=== PATIENT | female | born 1970 | race Caucasian/White ===

== ENCOUNTER 2024-02-22 23:47 | Inpatient (IN) | payer MEDICARE, OTHER, SELFPAY ==
[2024-02-22] VITALS (9 sets, daily range): BP systolic 82–93; BP diastolic 56–72; BMI 29.5
[2024-02-22 19:51] LABS: % Basophils 0.8 % (0-2); % Eosinophils 0.7 % (0-6); % Immature Granulocytes 1.8 % (0-0.5); % Lymphocytes 15.1 % (20.5-51.1); % Monocytes 5.9 % (1.7-9.3); % Neutrophils 75.7 % (42.2-75.2); Absolute Basophils 0.1 10^3/uL (0-0.2); Absolute Eosinophils 0.1 10^3/uL (0-0.7); Absolute Immature Granulocytes 0.3 10^3/uL (0-0.05); Absolute Lymphocytes 2.5 10^3/uL (1.2-3.4); Absolute Neutrophils 12.4 10^3/uL (1.4-6.5); Hematocrit 39.5 % (37.0-47.0); Hemoglobin 13.2 g/dL (12.0-16.0); Mean Corp Hgb Conc. 33.4 g/dL (33.0-37.0); Mean Corpuscular Hgb 27.9 pg (27.0-31.0); Mean Corpuscular Volume 83.5 fL (81.0-99.0); Mean Platelet Volume 10.6 fL (7.4-10.4); Nucleated Red Blood Cells % 0.1 %; Platelet Count 166 10^3/uL (130-400); Red Blood Cell Count 4.73 10^6/uL (4.20-5.40); Red Cell Dist. Width 14.3 % (11.5-14.5); White Blood Cell Count 16.3 10^3/uL (4.8-10.8)
[2024-02-22 19:57] LABS: Lactic Acid 0.7 mmol/L (0.7-2.0)
[2024-02-22 20:03] LABS: Blood Urea Nitrogen 13 mg/dl (7-17); Calcium 8.1 mg/dl (8.4-10.2); Carbon Dioxide 24 mmol/L (22-30); Chloride 95 mmol/L (98-107); Estimated Creatinine Clearance 107 ml/min; Glucose 92 mg/dl (70-99); Sodium 126 mmol/L (135-145); eGFR > 60.00
[2024-02-22 20:30] LABS: Urine Albumin Trace (Neg - Trace); Urine Bilirubin 1+ (Negative); Urine Character Clear (Clear); Urine Color Amber; Urine Glucose Negative (Negative); Urine Ketone Negative (Negative); Urine Leukocyte Trace (Negative); Urine Nitrite Positive (Negative); Urine Occult Blood Negative (Negative); Urine Specific Gravity 1.015 (<1.030); Urine Urobilinogen Negative (Neg - 1+)
[2024-02-22 20:34] LABS: Osmolality Urine 513 mOsm/kg (300-900)
[2024-02-22] MEDS: NSS 500 IV ×3 (20:34→22:35)
[2024-02-22 20:40] LABS: Urine Bacteria Few (Negative)
[2024-02-22 20:45] LABS: Urine Sodium < 5 mmol/L (30-90)
[2024-02-22 20:46] LABS: Osmolality Serum 266 mOsm/kg (275-300)
[2024-02-22 20:48] LABS: Potassium 3.5 mmol/L (3.5-5.1)
--- NOTE | 2024-02-22 22:14 | ED.GENMED ---
History of Present Illness
General
Chief Complaint: Abnormal Lab Value
Source: patient
Exam Limitations: dementia
Time Seen by Provider: 02/22/24 19:31
Nursing documentation reviewed up to this point in time: agreed with
Travel History
Have you had any contact with someone who has COVID-19?: No
Do you have any symptoms of coronavirus? Fever > 100 degrees, chills, cough, shortness of breath, sore throat, loss of taste or smell, muscle aches, or headache?: No
History of Present Illness
History of Present Illness:
Patient with history of early dementia and schizophrenia, presents to ED from [facility] with concern for sepsis, as she has had significant decreased oral intake recently along with multiple blood work which revealed leukocytosis. Upon arrival,
patient is afebrile, and offers no complaints. Denies headache. Denies chest pain. Denies abdominal pain. Denies nausea, vomiting, or diarrhea.
Review of Systems
Review of Systems
Allergies reviewed?: Yes
Unable to obtain full review of systems at this time due to: dementia
Phy Exam
Physical Exam
Physical Exam:
Physical Exam
General: no apparent distress, not acutely ill. afebrile. dry oral mucosa
Head: nc/at. eomi
Neck: supple. no meningeal signs.
Heart: s1/s2 regular rate and rhythm, no murmur. equal radial pulses.
Lungs: no acute respiratory distress. clear bilaterally
Abdomen: normal bowel sounds. not tender.
Neuro: alert and oriented x 1. no focal neurological deficits
Skin: no rash
Psychiatric: well kept. interactive and cooperative
Extremities: no edema. no calf tenderness.
Course
Orders/Labs/Results
Orders:
Orders
02/22/24 19:33
Electrocardiogram (*1) Urgent
Reason for Study: Other
Other Reason for Exam: Possible Sepsis
Cardiac Monitoring- Treatment ONCE
EKG- Treatment ONCE
IV Insert/Care/Rem.- Treatment PRN
O2 Therapy [RESP] Urgent
Titrate/Wean O2 to maintain O2 sat greater than (%): 93
Special Instructions: TO MAINTAIN CONTINUOUS O2 SATS > OR = 93%
Pulse Ox/cont/shift [RESP] Urgent
Quantity: 1
Special Instructions: CONTINUOUS
02/22/24 19:36
Basic Metabolic Panel Urgent
Complete Blood Count/With Diff Urgent
Lactic Acid Q4H
Comment: ON ICE, CANCEL 2ND ORDER IF FIRST LACTIC ACID LEVEL <2
Blood Culture Q30M
BROOKS Source: Blood/Venous
Specimen Description:
Comment: FROM 2 SEPARATE SITES
02/22/24 19:45
Blood Culture Q30M
BROOKS Source: Blood/Venous
Specimen Description:
Comment: FROM 2 SEPARATE SITES
02/22/24 20:07
Add On- LAB Urgent
Tests Added?: urine osm, urine sodium, serum osm
02/22/24 20:14
Straight cath- Treatment ONCE
02/22/24 20:23
Potassium Urgent
Serum Osmolality Urgent
Comment: ADD ON
Urinalysis Reflex To Culture Urgent
Date Specimen was Collected: 02/22/24
Time Specimen was Collected: 20:20
Urine Microscopic Reflex Cult Urgent
Urine Culture Urgent
BROOKS Source: U
Specimen Description:
Date Specimen was Collected: 02/22/24
Time Specimen was Collected: 20:20
02/22/24 20:29
Osmolality, Random Urine Urgent
Date Specimen was Collected: 02/22/24
Time Specimen was Collected: 20:20
Comment: ADD ON
Urine Sodium Urgent
Date Specimen was Collected: 02/22/24
Time Specimen was Collected: 20:20
Comment: ADD ON
02/22/24 20:33
0.9% Sodium Chloride 500 ml [Nss] 500 ml IV BOLUS
02/22/24 21:24
0.9% Sodium Chloride 500 ml [Nss] 500 ml IV BOLUS
02/22/24 22:19
CefTRIAXone [Rocephin] 1,000 mg IV NOW STA
02/22/24 22:20
0.9% Sodium Chloride 500 ml [Nss] 500 ml IV BOLUS
02/22/24 22:33
Sterile Water [Sterile Water For Injection] 10 ml .ROUTE .[facility]
02/22/24 23:47
Wound Culture [Wound/Abscess/Other Culture] Urgent
BROOKS Source: Skin Surface
Specimen Description:
Date Specimen was Collected: 02/22/24
Time Specimen was Collected: 23:45
Comment: vaginal wall
Abnormal Lab Results
02/22/24 02/22/24 02/22/24
19:36 20:23 20:29
WBC 16.3 H 10^3/uL
(4.8-10.8)
MPV 10.6 H fL
(7.4-10.4)
Abs Immat Gran (auto) 0.3 H 10^3/uL
(0-0.05)
Absolute Neuts (auto) 12.4 H 10^3/uL
(1.4-6.5)
Absolute Monos (auto) 1.0 H 10^3/uL
(0.1-0.6)
Immature Gran % 1.8 H %
(0-0.5)
Neutrophils % 75.7 H %
(42.2-75.2)
Lymphocytes % 15.1 L %
(20.5-51.1)
Sodium 126 L mmol/L
(135-145)
Chloride 95 L mmol/L
(98-107)
Creatinine 0.4 L mg/dL
(0.6-1.0)
Serum Osmolality 266 L mOsm/kg
(275-300)
Calcium 8.1 L mg/dl
(8.4-10.2)
Urine Nitrite (Reflex) Positive A
(Negative)
Urine Bilirubin 1+ A
(Negative)
Leukocyte Esterase Rfl Trace A
(Negative)
Urine Bacteria (Reflex) Few A
(Negative)
Urine Sodium < 5 L mmol/L
(30-90)
02/22/24 19:36
02/22/24 20:23
Vital Signs
Initial and Last Documented VS:
Initial Vital Signs
Pulse Resp
107 15
02/22/24 19:07 02/22/24 19:07
Last Documented Vital Signs
Temp Pulse Resp BP Pulse Ox
99.1 F 111 17 85/63 96
02/24/24 08:46 02/24/24 06:15 02/24/24 06:15 02/24/24 06:00 02/23/24 21:30
MDM/Problems Addressed
MDM/Problems Addressed:
Blood work reviewed, noted for hyponatremia, likely prerenal from lack of oral intake. UA noted. In light of patient's history of UTI, will administer Rocephin.
Urine cx and blood cx pending.
Pt given multiple boluses of IVF due to hypotension, with improvement.
*Critical Care Note
Total Time (30-74mins, 75-104mins- exclusive of procedures): 30 min
ED Attending Note
-
Portions of this chart may have been created with voice recognition software.� Occasional wrong word or��sound alike� substitutions may have occurred due to the inherent limitations of voice recognition software.
Discharge Plan
Departure
Patient Disposition: Admit
Date of Disposition: 02/22/24
Time of Disposition: 22:20
Presentation/result/management discussed w/ accepting MD/DO: Hospitalist
Discharge Problem:
UTI (urinary tract infection), Acute hyponatremia
Interventions
Interventions:
*Risk Screen - Suicide Last Done: 02/22/24 19:09
*General Assessment Last Done: 02/22/24 19:09
*Neglect/Abuse Screening Last Done: 02/22/24 19:09
ED- Fall Risk Assessment Last Done: 02/22/24 19:09
*ED COVID-19 Vaccine History Last Done: 02/22/24 19:09
*Nursing Disposition Last Done: 02/23/24 01:50
Discharge Date and Time
Discharge Date/Time: 02/23/24 01:50
[2024-02-22] MEDS: ROCEPHIN 1000 MG IV (22:36)
--- NOTE | 2024-02-22 22:47 | HPS.HSE ---
Family Physician
-
Family Physician: Cliff Austin, DO
Chief Complaint
-
Change of mental status
History of Present Illness
53 woman with a history of early dementia and schizophrenia, comes to the ED from [facility] with concern for sepsis. She has had significant decreased oral intake with blood work with leukocytosis. In the ED, patient is afebrile, and offers no
complaints. She denies headache, chest pain, abdominal pain, nausea, vomiting, or diarrhea. At the time of my exam, she was sleeping and woke to the exam and went back to sleep.
Medical History
Past Medical History
Past Medical History: Reports Other
Additional Past Medical History:
Dementia
Schizophrenia
high cholesterol
GERD
Essential HTN
Past Surgical History: Reports None
Social History
Unable to obtain full social history at this time due to: Dementia
Family History
Family History: Not pertinent
Allergies / Home Medications
Allergies reflects when Allergies were last updated in [employer].
Home Medications with original date entered in [employer]
Allergy/Medication List:
Allergies
Allergy/AdvReac Type Severity Reaction Status Date / Time
diphenhydramine Allergy Unknown Unknown Verified 02/22/24 19:08
lithium Allergy Unknown Unknown Verified 02/22/24 19:08
Home Medications
acetaminophen 325 mg tablet 650 mg PO Q6H PRN elevated temp/mild pain 02/22/24
anastrozole 1 mg tablet 1 mg PO DAILY 02/22/24
aripiprazole 10 mg tablet (Abilify) 10 mg PO DAILY 02/22/24
atorvastatin 40 mg tablet (Lipitor) 40 mg PO HS 02/22/24
benztropine 2 mg tablet 2 mg PO BID 02/22/24
bisacodyl 10 mg rectal suppository 10 mg AK DAILY PRN constipation 02/22/24
calcium 500 mg tablet 1,500 mg PO DAILY 02/22/24
cefpodoxime 200 mg tablet 200 mg PO BID 02/22/24
cholecalciferol (vitamin D3) 25 mcg (1,000 unit) tablet 25 mcg PO DAILY 02/22/24
clonazepam 1 mg tablet (Klonopin) 1 mg PO Q8 PRN anxiety 02/22/24
clozapine 200 mg tablet (Clozaril) 200 mg PO DAILY 02/22/24
clozapine 200 mg tablet (Clozaril) 400 mg PO HS 02/22/24
divalproex 500 mg tablet,delayed release 1,000 mg PO HS 02/22/24
docusate sodium 100 mg capsule (Colace) 100 mg PO DAILY 02/22/24
ferrous gluconate 325 mg (36 mg iron) tablet 324 mg PO TID 02/22/24
gabapentin 100 mg tablet 100 mg PO TID 02/22/24
haloperidol 10 mg tablet 10 mg PO DAILY 02/22/24
levothyroxine 200 mcg capsule 225 mcg PO DAILY 02/22/24
magnesium hydroxide 400 mg/5 mL oral suspension (Milk of Magnesia) 30 ml PO DAILY PRN constipation 02/22/24
magnesium oxide 400 mg (241.3 mg magnesium) tablet (MagOx) 400 mg PO BID 02/22/24
menthol 4 % topical gel (Biofreeze (menthol)) 1 applic topical TID PRN pain 02/22/24
naloxone 4 mg/actuation nasal spray (Narcan) 4 mg intranasal Q2M PRN overdose 02/22/24
ondansetron HCl 4 mg tablet 4 mg PO Q6H PRN nausea 02/22/24
pantoprazole 20 mg tablet,delayed release (Protonix) 20 mg PO DAILY 02/22/24
potassium 20 mg chewable tablet 20 mg PO DAILY 02/22/24
pramipexole 0.25 mg tablet 0.25 mg PO HS 02/22/24
propranolol 10 mg tablet 10 mg PO BID 02/22/24
psyllium seed (sugar) oral packet 1 packet PO DAILY 02/22/24
sennosides 8.6 mg tablet (senna) 8.6 mg PO BID PRN coinstipation 02/22/24
sertraline 100 mg tablet 100 mg PO DAILY 02/22/24
sodium phosphates 19 gram-7 gram/118 mL enema (Fleet Enema) 118 ml AK ONCE PRN constipation 02/22/24
Review of Systems
-
Unable to obtain full review of systems at this time due to: Dementia
Physical Exam
Vital Signs
Vital Signs
Temp Pulse Resp BP Pulse Ox
98.4 F 107 16 86/68 96
02/22/24 19:09 02/22/24 19:34 02/22/24 19:34 02/22/24 19:34 02/22/24 19:34
Physical Exam
General: Well Developed, Well Nourished, No Apparent Distress, Comfortable and Appears Chronically Ill
HEENT: [place] Conjunctivae, Nose Appears Normal and Ears Appear Normal
Respiratory: Clear
Cardiac: S1/S2 and Regular Rhythm
GI: Soft, Non Tender and Non Distended
Musculoskeletal: No Clubbing, No Cyanosis and No Edema
Skin: Warm and Dry
Neuro: Awake
Psych: Calm
Laboratory Results
-
02/22/24 19:36
02/22/24 20:23
Laboratory Results
Lactic Acid 0.7 mmol/L (0.7-2.0) 02/22/24 19:36
Total Bilirubin Cancelled 02/22/24 19:36
AST Cancelled 02/22/24 19:36
ALT Cancelled 02/22/24 19:36
Alkaline Phosphatase Cancelled 02/22/24 19:36
Data Reviewed
-
Lab Data: Labs Reviewed by me
Impression/Plan
-
IMPRESSION:
53 woman with UTI, hyponatremia and change of mental status
PLAN:
1. UTI - likely caused change of mental status and hyponatremia from decreased PO
ABX for UTI
IV saline
Re-eval in am
Code: Full
VCD for DVTp
[2024-02-23] VITALS (29 sets, daily range): BP systolic 78–103; BP diastolic 53–81; BMI 28.7
[2024-02-23] MEDS: NSS 1000 IV ×3 (00:44→21:43)
--- NOTE | 2024-02-23 00:56 | W.PN.UPDATE ---
Update Note
Progress Note Update
Before sending pt to assigned med surg bed, ED nurse reporting continued low BPs 80s-90s/50s-60s despite multiple nss boluses. While MAP has remained >65 bp has never been above 90.
Given sepsis and hypotension and possible need for pressor support, will upgrade to IMU overnight and monitor BP closely.
--- NOTE | 2024-02-23 02:29 | PTCARENOTE ---
Received patient from ED at approximately 2:05am. Pt. sent to ICU as IMU overflow for suspected UTI sepsis with low blood pressures (80s/60s) in ED. Given 1500ml of NSS boluses in total before starting maintenance fluids. Arrived to ICU awake,
alert, and oriented. Calm demeanor. Denies pain/discomfort. Afebrile. Heart rhythm sinus. Blood pressure normotensive 101/56 with MAP of 79. Currently on room air. Lungs sound diminished. Regular diet ordered, pt. taking sips of water without issue.
In ED foul smelling vaginal discharge noted. Area cultured. Skin is intact. Discussed plan of care with patient. Vital signs stable at this time.
[2024-02-23 04:03] LABS: Hematocrit 35.6 % (37.0-47.0); Hemoglobin 12.4 g/dL (12.0-16.0); Mean Corp Hgb Conc. 34.8 g/dL (33.0-37.0); Mean Corpuscular Hgb 28.5 pg (27.0-31.0); Mean Corpuscular Volume 81.8 fL (81.0-99.0); Mean Platelet Volume 9.8 fL (7.4-10.4); Platelet Count 149 10^3/uL (130-400); Red Blood Cell Count 4.35 10^6/uL (4.20-5.40); Red Cell Dist. Width 14.6 % (11.5-14.5); White Blood Cell Count 15.5 10^3/uL (4.8-10.8)
[2024-02-23 04:29] LABS: Blood Urea Nitrogen 12 mg/dl (7-17); Calcium 7.8 mg/dl (8.4-10.2); Carbon Dioxide 21 mmol/L (22-30); Chloride 100 mmol/L (98-107); Estimated Creatinine Clearance 102 ml/min; Glucose 94 mg/dl (70-99); Potassium 3.2 mmol/L (3.5-5.1); Sodium 129 mmol/L (135-145); eGFR > 60.00
[2024-02-23] MEDS: SYNTHROID 225 MCG PO (06:20)
[2024-02-23] MEDS: CLOZARIL 200 MG PO (08:58)
[2024-02-23] MEDS: HALDOL 10 MG PO (08:58)
[2024-02-23] MEDS: OSCAL CAL 500 1500 MG PO (09:02)
[2024-02-23] MEDS: COLACE 100 MG PO (09:02)
[2024-02-23] MEDS: ZOLOFT 100 MG PO (09:02)
[2024-02-23] MEDS: PROTONIX 20 MG PO (09:03)
[2024-02-23] MEDS: MAGNESIUM OXIDE 500 MG PO ×2 (09:03→21:43)
[2024-02-23] MEDS: KCL 20 MEQ PO (09:03)
[2024-02-23] MEDS: VITAMIN D3 (cholecalciferol) 25 MCG PO (09:03)
[2024-02-23] MEDS: NEURONTIN 100 MG PO ×3 (09:03→21:46)
[2024-02-23] MEDS: ABILIFY 10 MG PO (09:04)
[2024-02-23] MEDS: ARIMIDEX 1 MG PO (09:04)
[2024-02-23] MEDS: COGENTIN 2 MG PO ×2 (09:04→21:42)
[2024-02-23] MEDS: METAMUCIL, KONSYL 1 PACKET PO (09:04)
[2024-02-23] MEDS: FEOSOL 325 MG PO (09:08)
--- NOTE | 2024-02-23 10:25 | W.PN.HOSP.TC ---
Today's Communication/Plan
-
Continue ceftriaxone
Follow culture data
Continued IV fluids-discontinue when she is taking adequate p.o.'s.
Assessment / Plan
Assessment / Plan
53 woman with early dementia and subsequently was referred from [facility] [place] [facility] for concern of sepsis. She apparently was having decreased oral intake and lab workup was abnormal so sent her here.
Clinical sepsis-patient with a concern of infection, leukocytosis and tachycardia with hypotension.
Initial eval shows pyuria raising concern for UTI. On ceftriaxone. Improving leukocytosis.
Abdomen benign
Voices no respiratory symptoms. COVID-negative. Check a chest x-ray.
Follow clinical response to abx and cx data
Hypertension suspect secondary to sepsis with no septic shock. Responded to IV fluids. Not requiring pressors. Continue to monitor.
Hyponatremia-suspect hypovolemia related. Urine sodium less than 5 and she was hypotensive. She has responded to IV fluids with increasing sodium to 129. I will continue with IV fluids and follow sodium.
History of early dementia/dysphagia-patient without agitation. Continue with her home regimen.
Code: Full
Tx to Med surg if BP remains stable today
Anticipated Discharge: > 48 hours
Subjective/Interval History
-
Date of Service: February 23, 2024
Patient is alert and oriented to self, place. She did not know which the month of the year.
She did not know why she is in the hospital.
She says she is originally from [place] and she has been in this facility for some time.
She didnt know which hospital she was prior landing in the current facility.
Says 'i am ok'
Voicing no specific complaints
No events overnight per RN
Objective Data
-
Labs:
Laboratory Results
02/23/24
03:42
WBC 15.5 H
Hgb 12.4
Hct 35.6 L
Plt Count 149
Sodium 129 L
Potassium 3.2 L
Chloride 100
Carbon Dioxide 21 L
BUN 12
Creatinine 0.4 L
Glucose 94
Calcium 7.8 L
Vital Signs:
Vital Signs
Temp Pulse Resp BP Pulse Ox
98.3 F 96 20 96/61 99
02/23/24 07:19 02/23/24 09:04 02/23/24 06:30 02/23/24 09:04 02/23/24 06:30
I&O
02/22/24 02/23/24 02/24/24
06:59 06:59 06:59
Intake Total 2199
Balance 2199
Review of Systems
-
Constitutional: Denies Fever
Respiratory: Denies Trouble Breathing
Cardiac: Denies Chest Pain
Abdomen/GI: Denies Abdominal Pain, Nausea, Vomiting or Diarrhea
Genitourinary: Denies Dysuria
Musculoskeletal: Denies Joint Pain
Neuro: Denies Dizzy
Physical Exam
-
General: No Apparent Distress
HEENT: Moist Mucous Membranes
Respiratory: Clear to Auscultation (Anteriorly)
Cardiac: Regular Rhythm and S1/S2; Negative Tachycardic
GI: Soft, Nontender, Nondistended and Normal Bowel Sounds
Musculoskeletal: No Edema
Neuro: Awake, Alert and Oriented; Negative No Motor Deficits, Slurred Speech or Facial Droop
Psych: Calm and Confused; Negative Agitated
Data Reviewed
-
Labs: Labs Reviewed by me
--- NOTE | 2024-02-23 12:52 | PTCARENOTE ---
pt awake and alert this am , confused on time and place, anxious at times , pt NSR on monitor , BP 96/61, poor appetite , oob to chair for 4 hours , needs max 2 assist, incontinent of urine , hinojosa and foul smelling vaginal drainage
--- NOTE | 2024-02-23 13:33 | CM ---
Reviewed the chart notes and spoke with the patient at the bedside. Patient is a poor historian. The patient has been at [facility] since 12/26/2023. Call placed to [facility] to confirm half-way resident, but was transferred to a
phone that had mailbox. Patient at baseline is wheelchair bound, but was able to stand and pivot for nursing. CM continues to be available to patient/family and is monitoring medical plan for needs at discharge.
Plan: Discharge back to [facility] when medically stable.
--- NOTE | 2024-02-23 17:05 | PTCARENOTE ---
no change in assessments , oob in chair for several hours today , needs lots of encouragement pt becomes very anxious , pt continues to have poor appetite
[2024-02-23] MEDS: DEPAKOTE (12 HR RELEASE) 1000 MG PO (21:44)
[2024-02-23] MEDS: CLOZARIL 400 MG PO (21:44)
[2024-02-23] MEDS: LIPITOR 40 MG PO (21:45)
[2024-02-23] MEDS: MIRAPEX 0.25 MG PO (21:45)
[2024-02-23] MEDS: STERILE WATER FOR INJECTION 10 ML IV (21:46)
[2024-02-23] MEDS: ROCEPHIN 1000 MG IV (21:46)
[2024-02-24] VITALS (25 sets, daily range): BP systolic 79–103; BP diastolic 53–75; BMI 30.7
[2024-02-24] MEDS: SYNTHROID 225 MCG PO (06:25)
[2024-02-24] MEDS: NSS 1000 IV ×2 (06:25→17:33)
[2024-02-24] MEDS: ABILIFY PO (08:51)
[2024-02-24] MEDS: ARIMIDEX PO (08:51)
[2024-02-24] MEDS: CLOZARIL PO (08:52)
[2024-02-24] MEDS: METAMUCIL, KONSYL PO (08:52)
[2024-02-24] MEDS: KCL PO (08:52)
[2024-02-24] MEDS: FEOSOL PO (08:52)
[2024-02-24] MEDS: COGENTIN PO (08:52)
[2024-02-24] MEDS: HALDOL PO (08:52)
[2024-02-24] MEDS: VITAMIN D3 (cholecalciferol) PO (08:52)
[2024-02-24] MEDS: COLACE PO (08:52)
[2024-02-24] MEDS: NEURONTIN PO ×2 (08:52→16:02)
[2024-02-24] MEDS: MAGNESIUM OXIDE PO (08:52)
[2024-02-24] MEDS: PROTONIX PO (08:52)
[2024-02-24] MEDS: OSCAL CAL 500 PO (08:52)
[2024-02-24] MEDS: ZOLOFT PO (08:53)
[2024-02-24 09:04] LABS: Hematocrit 30.1 % (37.0-47.0); Hemoglobin 10.4 g/dL (12.0-16.0); Mean Corp Hgb Conc. 34.6 g/dL (33.0-37.0); Mean Corpuscular Hgb 28.4 pg (27.0-31.0); Mean Corpuscular Volume 82.2 fL (81.0-99.0); Mean Platelet Volume 9.7 fL (7.4-10.4); Platelet Count 150 10^3/uL (130-400); Red Blood Cell Count 3.66 10^6/uL (4.20-5.40); Red Cell Dist. Width 14.6 % (11.5-14.5); White Blood Cell Count 23.2 10^3/uL (4.8-10.8)
[2024-02-24 09:42] LABS: Blood Urea Nitrogen 5 mg/dl (7-17); Calcium 7.7 mg/dl (8.4-10.2); Carbon Dioxide 22 mmol/L (22-30); Chloride 104 mmol/L (98-107); Estimated Creatinine Clearance 105 ml/min; Glucose 83 mg/dl (70-99); Potassium 3.1 mmol/L (3.5-5.1); Sodium 129 mmol/L (135-145); eGFR > 60.00
[2024-02-24 10:10] LABS: Cortisol, Random 15.3 ug/dl
--- NOTE | 2024-02-24 10:14 | W.PN.HOSP.TC ---
Addendum entered and electronically signed by Bg Delaney MD 02/27/24 17:04:
hypokalemia -replete
Original Note:
Today's Communication/Plan
-
Obtain a CT of the abdomen pelvis. Changed to IV Zosyn.
Obtain a chest x-ray.
IV Fluid bolus.
Check cortisol and TSH.
Consult psychiatric
Assessment / Plan
Assessment / Plan
53 woman with early dementia and [facility]. She apparently was having decreased oral intake and lab workup was abnormal so sent her here.
Clinical sepsis-patient with a concern of infection, leukocytosis and tachycardia with hypotension.
Initial eval shows pyuria raising concern for UTI. On ceftriaxone.
To the abdomen seems very tender and also white count is getting elevated. There is also concern if there is any vaginal discharge. Obtain a CT of the abdomen pelvis. Switch to Zosyn. Follow culture data.
Voices no respiratory symptoms. COVID-negative. Check a chest x-ray.
Hypotension suspect secondary to sepsis with no septic shock. Responded to IV fluids. Remains on the lower side again but asymptomatic. MAP is mostly more than 65. Will give more fluid boluses and see response. Creatinine is okay. Check serum
cortisol.
Hyponatremia-suspect hypovolemia related. Urine sodium less than 5 and she was hypotensive. She has responded to IV fluids with increasing sodium to 129. I will continue with IV fluids and follow sodium.
History of early dementia/dysphagia-patient without agitation. Continue with her home regimen. Patient refusing oral medication. Consult psychiatry.
Code: Full
Discussed with CITY COUNCILMAN
Total time spent on today's encounter was 52 minutes which included time spent in counseling the patient/ regarding diagnosis and treatment plan as listed above, goals of care, and symptom management. Case was discussed with nursing staff,
specialists, All labs and imaging personally reviewed by me. Remainder the time spent in detailed review of previous records, lab data, imaging, and other medical provider documentation.
Anticipated Discharge: > 48 hours
Subjective/Interval History
-
Date of Service: February 24, 2024
patient is alert and oriented to self and person but not to the place.
RN states she is refusing his medication especially the psychiatric medication saying that she is not supposed to be on them.
She does not know why psychiatrist was prescribing and also she cant tell me which hospital she was admitted prior to coming into the local rehab facility .
Denies any shortness of breath or cough. No fever or chills.
Complains of abdominal discomfort.
RN states when she was changing there was a concern about vaginal discharge may be. Patient denies any vaginal issues. 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
She denies any vaginal itching or prior bleeding.
Objective Data
-
Labs:
Laboratory Results
02/24/24
08:45
WBC 23.2 H
Hgb 10.4 L
Hct 30.1 L
Plt Count 150
Sodium 129 L
Potassium 3.1 L
Chloride 104
Carbon Dioxide 22
BUN 5 L
Creatinine 0.4 L
Glucose 83
Calcium 7.7 L
Vital Signs:
Vital Signs
Temp Pulse Resp BP Pulse Ox
99.1 F 111 17 85/63 96
02/24/24 08:46 02/24/24 06:15 02/24/24 06:15 02/24/24 06:00 02/23/24 21:30
I&O
02/23/24 02/24/24 02/25/24
06:59 06:59 06:59
Intake Total 2200 / 2300 2800 / 2800
Balance 2200 / 2300 2800 / 2800
Review of Systems
-
Constitutional: Denies Fever
Respiratory: Denies Trouble Breathing
Cardiac: Denies Chest Pain
Abdomen/GI: Denies Abdominal Pain, Nausea, Vomiting or Diarrhea
Neuro: Denies Dizzy
Physical Exam
-
General: No Apparent Distress
HEENT: Moist Mucous Membranes
Respiratory: Clear to Auscultation (anteriorly)
Cardiac: Regular Rhythm and S1/S2
GI: Soft, Nondistended, Normal Bowel Sounds and Tender (naila in LLQ and Suprapubic area. When I press the suprapubic area she feels like urinating. No rebound or guarding.)
Neuro: Awake, Alert, Oriented and No Motor Deficits; Negative Tremors
Psych: Calm and Confused (seems confused about details of admission); Negative Agitated
Data Reviewed
-
Labs: Labs Reviewed by me
[2024-02-24] MEDS: NSS 250 IV (10:18)
--- NOTE | 2024-02-24 10:21 | PTCARENOTE ---
Received pt @ change of shift. Assessment per charting- see flow sheet. Pt. refused AM meds, Dr. Delaney to bedside aware. Pt w foul/stool smelling vaginal discharge. Pt. reporting abd pain, tender to palpation. SBP's 80's w MAP 65. Dr. Delaney
aware of above findings as well and further orders received. Complete sarah given. Reposition per protocol. Instructed on how to report care concerns and call garzon in reach.
[2024-02-24] MEDS: ZOSYN 50 IV ×2 (11:14→17:33)
[2024-02-24] MEDS: KCL 270 MEQ IV (11:15)
[2024-02-24 11:39] LABS: TSH 0.04 uIU/ml (0.47-4.68)
[2024-02-24] MEDS: OMNIPAQUE 50 ML PO (11:42)
--- NOTE | 2024-02-24 11:50 | PTCARENOTE ---
Pt. w ABD/PELV CT orders w IV/oral contrast. Attempted to start first cup of contrast @ 1142. Pt. took 2 sips and is now refusing the rest. VAT to bedside in attempt for 2nd IV site. Dr. Delaney and CT scan made aware of above findings.
--- NOTE | 2024-02-24 13:52 | PTCARENOTE ---
Addendum entered by Valery Maier RN 02/24/24 15:42:
Pt. back to unit approx 1445, no events during transport/testing. Max assisted back from stretcher to bed. Hygiene care provided and pt. repositioned per protocol. Bed alarm active. Safe environment maintained.
Original Note:
Sent pt. to CT scan via stretcher on cardiac cath lab technologist. Awaiting arrival back to unit.
--- NOTE | 2024-02-24 14:17 | PN.CDI ---
CDI
- -
CDI:
Physician Documentation Request
Admit Date: 02/22/24 23:47
Dear Doctor Rhett,
Patient admitted for sepsis.
02/22 Potassium level: 3.2
02/22 Potassium chloride 20 meq PO administered
02/23 Potassium level: 3.1
02/23 Potassium chloride 40 meq IV administered
Based on the above, could you clarify in the progress notes, the appropriate diagnosis, if significant, that supports the above abnormalities and additional evaluation, monitoring and/or treatment rendered:
Hypokalemia
Abnormal lab value insignificant
Other
Use of terms such as suspected, likely, concern for, or probable (associated with a specific diagnosis that is being evaluated, monitored, or treated as if it exists) are acceptable and can be coded in the inpatient setting, when documented at the
time of discharge.
Thank you,
Helen Quinn RN, BSN
CDI Specialist
Available via [place] text
Please use your independent medical judgment in providing your response.
--- NOTE | 2024-02-24 14:21 | CS.PSYCHR ---
Consult Summary - Psychiatry
-
Pt is 53 yo female with a history of early dementia and schizophrenia, brought to the ED from sn[facility] with concern for sepsis. She has had significant decreased oral intake. Blood work revealed leukocytosis, low Sodium. Psychiatry asked to
evaluate due to multiple psychotropic medications. Per chart, pt took medications last night, but refused all this morning. Upon exam, pt lying in bed, awake, c/o burning/pain from IV site in hand. Pt started to pull the tape and remove the IV,
had to have nursing intervention. Pt is a poor historian, stated she is not any psych meds, could not give other information. Per case mgt, pt has been at [facility] since 12/26/2023, trying to confirm history/status, pt noted to be
wheelchair bound. CBC shows increased WBC's including Neutrophils. QTc 527 on admission.
PMH: high cholesterol, GERD, HTN, dementia
Psych Hx: reportedly dx Schizophrenia, no other history available
Psych Meds: Sertraline 100 mg QD, Propranolol 10 mg BID for tremor, Haldol 10 mg QD, Depakote 1000 mg HS, Clozapine 200 mg QD and 400 mg HS, Benztropine 2 mg BID, Abilify 10 mg QD. Pt recently restarted on Klonopin 1 mg after no prescriptions for
almost a year per the PDMP.
MSE: alert, making eye contact, speech coherent but very poor historian. No overt active psychosis. Pt denied being on any psychotropic medications. Judgement appears limited
Imp: Schizophrenia, by history, currently appears fairly stable. Pt is on duplicate therapy with multiple antipsychotics, and an unusually high dose of Clozapine.
Dementia by history, c/w presentation
Rec: Will hold off Haldol, will taper Clozapine to 400 mg per day and continue Abilify. There is good support in clinical literature for combining Clozapine and Abilify. However, doses of Clozapine
above 400 mg per day do not usually give additional benefit, and doses of 600 mg and above carry a significant risk of seizure. Clozapine and Depakote levels should be checked.
May need to consider tapering down/off Sertraline if low Sodium persists
Psychiatry will follow
--- NOTE | 2024-02-24 15:16 | CM ---
CM placed multiple calls to [facility] to confirm patient is a [facility] care resident, transferred to nursing station, then call ended. CM called back, left two voicemails for admissions. CM will continue to follow for discharge planning needs.
Plan; return to [facility] when stable, awaiting to hear from facility that pt is LTC.
[2024-02-24] MEDS: COGENTIN 2 MG PO (22:21)
[2024-02-24] MEDS: MAGNESIUM OXIDE 500 MG PO (22:22)
[2024-02-24] MEDS: CLOZARIL 400 MG PO (22:23)
[2024-02-24] MEDS: LIPITOR 40 MG PO (22:24)
[2024-02-24] MEDS: NEURONTIN 100 MG PO (22:25)
[2024-02-24] MEDS: MIRAPEX PO (23:21)
[2024-02-24] MEDS: DEPAKOTE (12 HR RELEASE) PO (23:21)
[2024-02-25] VITALS (25 sets, daily range): BP systolic 75–126; BP diastolic 55–92; BMI 31.3
[2024-02-25] MEDS: ZOSYN 50 IV ×4 (00:51→17:16)
[2024-02-25] MEDS: NSS 1000 IV ×4 (02:38→20:05)
[2024-02-25] MEDS: SYNTHROID 225 MCG PO (06:04)
[2024-02-25] MEDS: MAGNESIUM OXIDE PO ×2 (08:36→20:05)
[2024-02-25] MEDS: ABILIFY PO (08:36)
[2024-02-25] MEDS: NEURONTIN PO ×3 (08:36→21:01)
[2024-02-25] MEDS: FEOSOL PO (08:36)
[2024-02-25] MEDS: KCL PO (08:36)
[2024-02-25] MEDS: ARIMIDEX PO (08:36)
[2024-02-25] MEDS: METAMUCIL, KONSYL PO (08:36)
[2024-02-25] MEDS: COLACE PO (08:36)
[2024-02-25] MEDS: COGENTIN PO ×2 (08:36→20:05)
[2024-02-25] MEDS: VITAMIN D3 (cholecalciferol) PO (08:37)
[2024-02-25] MEDS: OSCAL CAL 500 PO (08:37)
[2024-02-25] MEDS: PROTONIX PO (08:37)
[2024-02-25] MEDS: ZOLOFT PO (08:37)
[2024-02-25 10:04] LABS: Hematocrit 27.2 % (37.0-47.0); Hemoglobin 9.3 g/dL (12.0-16.0); Mean Corp Hgb Conc. 34.2 g/dL (33.0-37.0); Mean Corpuscular Hgb 28.4 pg (27.0-31.0); Mean Corpuscular Volume 83.2 fL (81.0-99.0); Red Blood Cell Count 3.27 10^6/uL (4.20-5.40); Red Cell Dist. Width 14.6 % (11.5-14.5); White Blood Cell Count 29.4 10^3/uL (4.8-10.8)
[2024-02-25 10:17] LABS: Blood Urea Nitrogen 2 mg/dl (7-17); Calcium 7.5 mg/dl (8.4-10.2); Carbon Dioxide 17 mmol/L (22-30); Chloride 104 mmol/L (98-107); Estimated Creatinine Clearance 106 ml/min; Glucose 156 mg/dl (70-99); Sodium 127 mmol/L (135-145); eGFR > 60.00
[2024-02-25 10:27] LABS: Depakane 13.8 ug/ml (50.0-120.0)
[2024-02-25] MEDS: KCL 270 MEQ IV ×2 (11:06→18:12)
[2024-02-25] MEDS: ZOFRAN 4 MG IV (11:32)
--- NOTE | 2024-02-25 11:49 | W.PN.HOSP.TC ---
Addendum entered and electronically signed by Bg Delaney MD 02/25/24 17:47:
With positive C Diff and colitis suspect C Diff colitis .Hold antiboitics .Start on po vancomycin .if she continues to refuse ,will give it as Rectal vanco enema and IV flagyl.
Original Note:
Today's Communication/Plan
-
Continue with antibiotics. Consult ID.
Replace potassium.
Check an echocardiogram.
Check iron studies.
Assessment / Plan
Assessment / Plan
53 woman with early dementia and subsequently was referred from local care home for concern of sepsis. She apparently was having decreased oral intake and lab workup was abnormal so sent her here.
Clinical sepsis-patient with a concern of infection, leukocytosis and tachycardia with hypotension.
Initial eval shows pyuria raising concern for UTI but urine cx no growth
COVID-negative.
chest x-ray no findings to suggest pneumonia.
Due to abdominal discomfort CT scan was obtained which shows colitis from mid ascending colon to rectum. She has loose stools but no fever or chills. She is feeling nauseous.
Acute colitis-unclear of infectious source or inflammatory. Continue with antibiotics. Consult ID.
Systolic Hypotension -systolic remains low but her MAP has been consistently more than 65. She is asymptomatic. Her lactic acid was normal. Creatinine is normal. She was given fluid challenges without much change. Random cortisol is okay.
Check echocardiogram. Would hold further fluid boluses. Continue to follow.
Hyponatremia-suspect hypovolemia related. Urine sodium less than 5 and she was hypotensive. She has responded to IV fluids with increasing sodium to 129. Dropped again to 127 and she is having loose stools and vomiting- repeat Urine lytes and if
Na low will give iv fluids , if not will consult Renal.
Hypokalemia -replete
Anemia - drop in HH noted - no obvious external bleeding. suspect diluational. Check iron studies and follow for any external bleeding.
Hypothyroidism -TSH 0.04. She is on thyroid supplements at the high dose. Unclear most TSH. I will decrease the dose and follow TSH. Will try and obtain old information
History of early dementia/dysphagia-patient without agitation. Continue with her home regimen. Patient refusing oral medication. Consulted psychiatry.
Code: Full
Discussed with INSTRUCTOR WASTEWATER TREATMENT PLANT
Total time spent on today's encounter was 52 minutes which included time spent in counseling the patient/ regarding diagnosis and treatment plan as listed above, goals of care, and symptom management. Case was discussed with nursing staff,
specialists, All labs and imaging personally reviewed by me. Remainder the time spent in detailed review of previous records, lab data, imaging, and other medical provider documentation.
Anticipated Discharge: > 48 hours
Subjective/Interval History
-
Date of Service: February 25, 2024
She is feeling nauseous. Not taking much orally. Unclear why she is declining her oral medication.
She still feels discomfort in the abdomen. She had 2 loose bowel movements last night 1 this morning according to RN.
Denies any chest pain or shortness of breath.
She is alert and oriented to self but she did not know the name of the hospital, the day of the week ,or the month. She could not tell me which hospital she was recently in prior to coming into the local rehab facility.
Objective Data
-
Labs:
Laboratory Results
02/25/24
09:37
WBC 29.4 H
Hgb 9.3 L
Hct 27.2 L
Plt Count
Sodium 127 L
Potassium 3.0 L
Chloride 104
Carbon Dioxide 17 L
BUN 2 L
Creatinine 0.3 L
Glucose 156 H
Calcium 7.5 L
Vital Signs:
Vital Signs
Temp Pulse Resp BP Pulse Ox
99.3 F 117 28 87/62 99
02/25/24 07:30 02/25/24 09:00 02/25/24 09:00 02/25/24 09:00 02/25/24 09:00
I&O
02/24/24 02/25/24 02/26/24
06:59 06:59 06:59
Intake Total 2800 / 2900 4370.0 / 4370.0 125 / 125
Output Total 900 / 900
Balance 2800 / 2900 3470.0 / 3470.0 125 / 125
Review of Systems
-
Constitutional: Denies Fever or Chills
EENT: Denies Sore Throat
Respiratory: Denies Cough
Musculoskeletal: Denies Joint Pain
Neuro: Denies Dizzy
Physical Exam
-
General: No Apparent Distress
HEENT: Moist Mucous Membranes
Respiratory: Clear to Auscultation (anteriorly)
Cardiac: Regular Rhythm, S1/S2 and Tachycardic
GI: Soft, Nondistended, Normal Bowel Sounds and Tender (some discomfort in lower left abdo but no rebound or guarding )
Neuro: AO x 3
Psych: Calm
Data Reviewed
-
CT Scan: Report Reviewed by me (CT A/P)
Labs: Labs Reviewed by me
--- NOTE | 2024-02-25 11:54 | PTCARENOTE ---
pt received this am aox2, refusing all meds and po intake despite education, Dr. Delaney aware. pt with frequent loose stools- rectal trumpet in place. Dr Delaney aware of inability to get clean catch urine sample at this time. pt vomiting, zofran
given. all safety precautions in place, call garzon within reach.
[2024-02-25] MEDS: ProAmatine PO ×2 (11:56→17:11)
--- NOTE | 2024-02-25 12:48 | W.PN.UPDATE ---
Update Note
Progress Note Update
Pt seen, resting calmly in bed, continues to c/o discomfort/burning from IV sites in hands. Alert, sensorium appears intact. Pt is very poor historian, states she is not on psych meds, states she was waiting until she saw a psychiatrist, but has
not seen one in 'a while.' Pt unable or unwilling to give a name. Pt states she was in an inpatient psych facility, states it was 'a dump', gives no other information about when or where. Pt is taking Clozapine at HS, but refusing Depakote,
Sertraline, Abilify. Pt calm, with no overt signs of active psychosis or mood disturbance at present. Status at [facility] still unconfirmed per case mgt, not able to get a response by phone. Not able to obtain any further history. VPA level is
unsurprisingly low, given pt's refusal last night. Clozapine level is pending, usually takes several days. Sodium level continues to be low; pt is refusing Sertraline the past 2 days, so may not be related.
Imp: Schizophrenia, by history, currently appears fairly stable. Pt admitted on multiple antipsychotics, including a high dose of Clozapine.
Dementia by history, c/w presentation. No agitation thus far.
Prolonged QTc on admission- 527
Rec: Will continue Clozapine to 400 mg HS (tapered down), as well as Abilify, Sertraline, Depakote- encouraging pt to comply.
Agree with rechecking EKG, hopefully QTc improved with stoppage of Haldol
Pt appears psychiatrically stable to return to previous med mgt when medically cleared
Psychiatry will follow
[2024-02-25 14:51] LABS: Osmolality Urine 509 mOsm/kg (300-900)
[2024-02-25 14:53] LABS: Urine Sodium 9 mmol/L (30-90)
--- NOTE | 2024-02-25 14:57 | CON.GI ---
Consultation
-
Date/Time Consultation Requested: 02/25/24
Date/Time Consultation Performed: 02/25/24
Requesting Provider: Dr. Delaney
Performing Provider: Dr. Randle
Reason for Consultation: Colitis
Medical History
Chief Complaint / HPI
Chief Complaint: Colitis on imaging, sepsis
History of Present Illness:
Valery Oneill is a 53 y.o. female w/ pmhx schizophrenia, HLD, dementia who was admitted to [facility] from her senior living after outpatient labs were significant for a leukocytosis and staff noted decreased PO intake. On arrival, she was
found to be afebrile but tachycardic w/ HR in low 100s and hypotensive with BP of 86/68 mmHg. Initial labs w/ WBC of 16.3K, hgb 13.2, Plt 166, Na 126, Cl 95, Cr. 0.4, BUN 13, lactate 0.7, Serum osm 266, urine Na <5, TSH .04, Random cortisol 15.3.
She was empirically started on Ceftriaxone, BP and sodium initially improved with IVF, but still remain low. She has not required pressors. She is now on zosyn. Since admission, she has a worsening leukocytosis: 16.3 --> 15.5 --> 23.2 --> 29.4, her
hemoglobin has also trended down, from 13.2 --> 12.4 --> 10.4 --> 9.3 without signs of overt GI Bleeding, BUN/Cr. today 2/0.3. Her platelets have remained stable. Her UA was positive for nitrites and trace leuk est, urine culture w/o growth; blood
culture NGTD; wound culture + enterococcus. CT A/P with IV contrast showed evidence of cholelithiasis and mild intrahepatic ductal dilation w/o findings to suggest cholecystitis or choledocholithiasis as well as acute colitis, from the rectum to the
ascending colon, for which GI is consulted.
Patient is somewhat agitated on evaluation, she repeatedly tells me she wants to go home and she wants her mom. She does report having multiple episodes of diarrhea today. She cannot tell me how long this is going on, more than a day, weeks or
months, she is not sure. She denies any associated abdominal pain or rectal bleeding. She denies ever having a colonoscopy before, she is unsure of what that is. She is unsure if there is a family history of colon cancer, colon polyps or IBD. When
asked where home is, she tells me she is homeless. She cannot tell me the names of any family members that assist with her medical decision making.
CT A/P w/ IV Contrast (02/25): Evaluation of the abdomen and pelvis is limited by motion artifacts. There is minimal intrahepatic biliary dilation. Gallbladder appears contracted, with a few small calculi layering within. No signs of GB inflammatory
changes. Pancreas is unremarkable. Both adrenal glands show masslike low-attenuation thickening, there is also focal rounded low-attenuation lesion in the left adrenal gland which measures up to approximately 1.4 cm in diameter. Findings likely
represent bilateral adrenal hyperplasia with small benign left adrenal adenoma. Adenoma approximately 4 Hounsfield units.Concentric abnormal mural thickening of the colon extending from the mid ascending colon through the rectum, findings consistent
with acute colitis. No abnormal wall thickening of the small bowel, however, some small bowel air-fluid levels suggesting ileus.
CXR (02/23): Mild left basilar discoid atelectasis. No findings to suggest pneumonia
Past Medical History
Past Medical History: Hypercholesterolemia, Psychiatric and Other (Dementia, schizophrenia)
Past Surgical History: None
Social History
Living: Jail
Family History
Family History: Unable to Obtain
Allergies / Home Medications
Allergy/AdvReac Type Severity Reaction Status Date / Time
diphenhydramine Allergy Unknown Unknown Verified 02/22/24 19:08
lithium Allergy Unknown Unknown Verified 02/22/24 19:08
�Medication �Instructions �Recorded
acetaminophen 325 mg tablet 650 mg PO Q6H PRN elevated 02/22/24
temp/mild pain
anastrozole 1 mg tablet 1 mg PO DAILY Cancer 02/22/24
aripiprazole 10 mg tablet (Abilify) 10 mg PO DAILY Neurological 02/22/24
Condition
atorvastatin 40 mg tablet (Lipitor) 40 mg PO HS High Cholesterol 02/22/24
benztropine 2 mg tablet 2 mg PO BID tardive dyskinesia 02/22/24
bisacodyl 10 mg rectal suppository 10 mg LA DAILY PRN constipation 02/22/24
calcium 500 mg tablet 1,500 mg PO DAILY Supplement 02/22/24
cefpodoxime 200 mg tablet 200 mg PO BID Infection 02/22/24
cholecalciferol (vitamin D3) 25 25 mcg PO DAILY Supplement 02/22/24
mcg (1,000 unit) tablet
clonazepam 1 mg tablet (Klonopin) 1 mg PO Q8 PRN anxiety 02/22/24
clozapine 200 mg tablet (Clozaril) 200 mg PO DAILY Neurological 02/22/24
Condition
clozapine 200 mg tablet (Clozaril) 400 mg PO HS Neurological Condition 02/22/24
divalproex 500 mg tablet,delayed 1,000 mg PO HS Neurological 02/22/24
release Condition
docusate sodium 100 mg capsule 100 mg PO DAILY Constipation 02/22/24
(Colace)
ferrous gluconate 325 mg (36 mg 324 mg PO TID Supplement 02/22/24
iron) tablet
gabapentin 100 mg tablet 100 mg PO TID Pain 02/22/24
haloperidol 10 mg tablet 10 mg PO DAILY Neurological 02/22/24
Condition
levothyroxine 200 mcg capsule 225 mcg PO DAILY Thyroid 02/22/24
magnesium hydroxide 400 mg/5 mL 30 ml PO DAILY PRN constipation 02/22/24
oral suspension (Milk of Magnesia)
magnesium oxide 400 mg (241.3 mg 400 mg PO BID Supplement 02/22/24
magnesium) tablet (MagOx)
menthol 4 % topical gel (Biofreeze 1 applic topical TID PRN pain 02/22/24
(menthol))
naloxone 4 mg/actuation nasal 4 mg intranasal Q2M PRN overdose 02/22/24
spray (Narcan)
ondansetron HCl 4 mg tablet 4 mg PO Q6H PRN nausea 02/22/24
pantoprazole 20 mg tablet,delayed 20 mg PO DAILY Gastrointestinal 02/22/24
release (Protonix) Issue
potassium 20 mg chewable tablet 20 mg PO DAILY Electrolyte 02/22/24
Repletion
pramipexole 0.25 mg tablet 0.25 mg PO HS movement disorder 02/22/24
propranolol 10 mg tablet 10 mg PO BID tremor 02/22/24
psyllium seed (sugar) oral packet 1 packet PO DAILY Gastrointestinal 02/22/24
Issue
sennosides 8.6 mg tablet (senna) 8.6 mg PO BID PRN constipation 02/22/24
sertraline 100 mg tablet 100 mg PO DAILY Mental Health 02/22/24
sodium phosphates 19 gram-7 118 ml LA ONCE PRN constipation 02/22/24
gram/118 mL enema (Fleet Enema)
Review of Systems
-
Unable to obtain full review of systems at this time due to: Dementia
History Source: Patient
All other systems: A 12 pt ROS was Negative except as stated above in HPI
Vital Signs
Temp Pulse Resp BP Pulse Ox
98.5 F 121 22 98/67 100
02/25/24 14:53 02/25/24 14:00 02/25/24 14:00 02/25/24 14:00 02/25/24 14:00
Physical Exam
Exam
General: No Apparent Distress
GI: Soft, Non Tender, Non Distended and Normal Bowel Sounds
Rectal: Other (refused rectal exam)
Psych: Agitated
Results
WBC 29.4 10^3/uL (4.8-10.8) H 02/25/24 09:37
Hgb 9.3 g/dL (12.0-16.0) L 02/25/24 09:37
Hct 27.2 % (37.0-47.0) L 02/25/24 09:37
MCV 83.2 fL (81.0-99.0) 02/25/24 09:37
Plt Count 10^3/uL (130-400) 02/25/24 09:37
Absolute Neuts (auto) 12.4 10^3/uL (1.4-6.5) H 02/22/24 19:36
Sodium 127 mmol/L (135-145) L 02/25/24 09:37
Potassium 3.0 mmol/L (3.5-5.1) L 02/25/24 09:37
Chloride 104 mmol/L (98-107) 02/25/24 09:37
Carbon Dioxide 17 mmol/L (22-30) L 02/25/24 09:37
BUN 2 mg/dl (7-17) L 02/25/24 09:37
Creatinine 0.3 mg/dL (0.6-1.0) L 02/25/24 09:37
Calcium 7.5 mg/dl (8.4-10.2) L 02/25/24 09:37
Total Bilirubin Cancelled 02/22/24 19:36
AST Cancelled 02/22/24 19:36
ALT Cancelled 02/22/24 19:36
Alkaline Phosphatase Cancelled 02/22/24 19:36
Diagnostic Image Results:
Prior GI Procedures:
EGD:
Colonoscopy:
Assessment / Plan
-
53 y.o. female w/ pmhx dementia and shizophrenia admitted with leukocytosis and poor PO intake found to be septic now with diarrhea and findings of acute colitis on imaging.
#Acute colitis--ddx infectious vs. inflammatory
-unclear duration of symptoms as history obtained from patient; per documentation, NH staff did not report diarrhea
-CT A/P w/ IV contrast only showed Concentric abnormal mural thickening of the colon extending from the mid ascending colon through the rectum, findings consistent with acute colitis, some small bowel air-fluid levels but no evidence of SB
inflammation
-now with diarrhea-- check stool studies to rule out infectious source, at risk for c.diff and repeated courses of abx for treatment of UTI
-check fecal calprotectin, CRP
-patient currently refusing most interventions, when discussed a colonoscopy she became agitated, would need to obtain consent from POA
-currently on zosyn, ID consulted
-hold laxatives
Anemia
-Hgb 13.2 on arrival --> 12.4 --> 10.4 --> 9.3 w/o signs of GI bleeding; low BUN/Cr.
-no prior EGD/Colonoscopy??
-check iron studies
-at least needs a colon given abnormal CT findings as well as for CRC screening, patient unlikely to agree to a prep, need consent from POA
#Biliary ductal dilatation
-LFTs on arrival were normal; findings of cholelithiasis w/o choledocholithiasis
-obtain LFTs in AM
-recommend nonurgent MRCP to further evaluate, can be performed outpatient
Data Reviewed
-
CT Scan: Report Reviewed by me
-
-
Thank you for consultation and allowing me to participate in the patient's care. Please call the configuration release manager GI physician during the after hours with any questions or concerns.
--- NOTE | 2024-02-25 16:04 | CM ---
CM received return call from Michelle at [facility], confirmed patient is a LTC resident. CM reviewed chart, ID consulted, psychiatry following. CM will continue to follow for all discharge planning needs.
Plan; return to [facility] LT when stable.
--- NOTE | 2024-02-25 17:11 | PTCARENOTE ---
pt continues refusing po meds and any food intake. drinking water periodically. turned and repositioned. all labs sent. remains with loose stools. straight cathed for 390cc at 1430.
[2024-02-25] MEDS: NON-FORMULARY ITEM RECTAL (20:04)
--- NOTE | 2024-02-25 20:30 | PTCARENOTE ---
Addendum entered by Kirsten Borrego RN 02/25/24 21:07:
VAT contacted for another PIV.
Original Note:
rec'd patient. oriented to self and . uncooperative and anxious at times. ST on monitor. weak pedals. SCDs on. on RA, denies SOB, satting 99%. poor appetite, only 25% of dinner eaten. regular diet. BS for 93 ml, purewick placed. FMS placed. MASD
to groin, barrier ointment applied. CHG bath given, oral care refused. pt removed L wrist PIV. KCl infusing, repeat BMP due once finished. refusing all PO meds at this time. IMU level of care. call garzon within reach, care ongoing.
[2024-02-25] MEDS: MIRAPEX PO (21:00)
[2024-02-25] MEDS: FLAGYL 500 MG 100 IV (21:00)
[2024-02-25] MEDS: LIPITOR PO (21:00)
[2024-02-25] MEDS: CLOZARIL PO (21:00)
[2024-02-25] MEDS: DEPAKOTE (12 HR RELEASE) PO (21:00)
[2024-02-25] MEDS: NON-FORMULARY ITEM 1 UNIT RECTAL (21:01)
[2024-02-25 21:55] LABS: Blood Urea Nitrogen 3 mg/dl (7-17); Calcium 7.5 mg/dl (8.4-10.2); Carbon Dioxide 21 mmol/L (22-30); Chloride 103 mmol/L (98-107); Estimated Creatinine Clearance 106 ml/min; Glucose 110 mg/dl (70-99); Potassium 3.7 mmol/L (3.5-5.1); Sodium 127 mmol/L (135-145); eGFR > 60.00
--- NOTE | 2024-02-25 22:23 | VATNOTE ---
PT WITH EXTRELELY POOR AND LIMITED PERIPHERAL IV ACCESS OPTIONS. PT WOULD BENEFIT FROM A ML INSERTION. PT SCREAMING OUT AND REFUSING IV ATTEMPTS AND LAB DRAWS. DID NOT ATTEMTP ML DUE TO THIS BEHAVIOR. ADDITIONAL IV ESTABLISHED DOCUMENTED ON LF.
SUPPLY CHAIN GENERALIST ORDER OBTAINED FOR FOOT ACCESS.
[2024-02-26] VITALS (19 sets, daily range): BP systolic 80–107; BP diastolic 55–72; BMI 32.4
[2024-02-26] MEDS: FLAGYL 500 MG 100 IV ×3 (03:53→19:55)
[2024-02-26] MEDS: SYNTHROID PO (05:00)
--- NOTE | 2024-02-26 06:28 | DOWNTIME ---
There was a [employer] Client [employer]informatics Computer Scientist Downtime on 02/26/2024 from 0100 to 02/26/2024 at 0337. Downtime documentation of patient's care, including medication administrations, has been reconciled in the electronic record per guidelines. Refer to the
patient's paper chart under the miscellaneous tab to see printed paper medication records and downtime forms.
--- NOTE | 2024-02-26 08:01 | W.PN.HOSP.TC ---
Addendum entered and electronically signed by Leslee Nolan MD 02/26/24 14:53:
Hypokalemia
-replete
-add on Mag
pseudohypocalcemia; albumin very low. corrected 8.6
Addendum entered and electronically signed by Leslee Nolan MD 02/26/24 08:38:
patient is refusing labs and oral medications. she remains tachycardic.
PICC ordered
I have called both numbers in chart and left a voicemail on both; none went to a direct person.
Original Note:
Today's Communication/Plan
-
rectal vanc and IV Flagyl
liquid vanc mixed with food (unclear if patient will take)
ID consult
IV fluids, additional bolus (low urine sodium yesterday and low urine output)
will order PICC although unclear if patient will let us
Assessment / Plan
Assessment / Plan
53 woman with early dementia and subsequently was referred from local snf for concern of sepsis with decreased oral intake and abnormal labs. CT w/ e/o colitis and C. Diff positive.
CT A/P
IMPRESSION:
1. Concentric abnormal mural thickening of the colon extending from the mid ascending colon through the rectum, findings consistent with acute colitis. Infectious and inflammatory etiologies are the most likely differential considerations. No
signs of abscess formation or drainable collection.
2. Cholelithiasis. No signs of acute gallbladder inflammatory change.
3. Bilateral adrenal thickening likely related to hyperplasia. Additional 1.4 cm low-attenuation left adrenal lesion, most likely benign adenoma.
TTE
CONCLUSIONS
Normal biventricular size and systolic function without regional wall motion
abnormality.
No significant valvular disease.
No prior study available for comparison.
Clinical sepsis 2/2 C. Diff Infection
Acute colitis
-C. Diff positive
-appreciate GI consult
-vanc enemas as patient refuses PO; IV Flagyl
-discussed with GI, trial of liquid vanc mixed with food
-ID consult
Systolic Hypotension -systolic remains low but her MAP has been consistently more than 65. She is asymptomatic. Her lactic acid was normal. Creatinine is normal. She was given fluid challenges without much change. Random cortisol is okay.
-TTE results above, WNL
-given low urinary output will give another fluid bolus today
Hyponatremia-suspect hypovolemia related. Urine sodium less than 5 and she was hypotensive. She has responded to IV fluids with increasing sodium to 129. Dropped again to 127 and she is having loose stools and vomiting
-repeat urine with urine sodium 9
-additional bolus as above
-continue IVF
Hypokalemia -replete
Anemia - drop in HH noted - no obvious external bleeding. suspect diluational. Check iron studies and follow for any external bleeding.
Hypothyroidism -TSH 0.04. She is on thyroid supplements at the high dose. Unclear most TSH. I will decrease the dose and follow TSH. Will try and obtain old information
History of early dementia/dysphagia-patient without agitation. Continue with her home regimen. Patient refusing oral medication.
-appreciate psychiatry consult
-*patient refused lab draws this AM . discussing case with psychiatry
Code: Full
Discussed with AUTO HEATER MECHANIC
Total time spent on today's encounter was 52 minutes which included time spent in counseling the patient/ regarding diagnosis and treatment plan as listed above, goals of care, and symptom management. Case was discussed with nursing staff,
specialists, All labs and imaging personally reviewed by me. Remainder the time spent in detailed review of previous records, lab data, imaging, and other medical provider documentation.
Anticipated Discharge: > 48 hours
Subjective/Interval History
-
Date of Service: February 26, 2024
patient refused lab draws
she is telling me she is fine
Objective Data
-
Labs:
Laboratory Results
02/25/24 02/26/24
21:30 06:00
WBC Pending
Hgb Pending
Hct Pending
Plt Count Pending
Sodium 127 L Pending
Potassium 3.7 Pending
Chloride 103 Pending
Carbon Dioxide 21 L Pending
BUN 3 L Pending
Creatinine 0.3 L Pending
Glucose 110 H Pending
Calcium 7.5 L Pending
Vital Signs:
Vital Signs
Temp Pulse Resp BP Pulse Ox
99 F 114 28 88/68 97
02/26/24 04:01 02/26/24 06:00 02/26/24 06:00 02/26/24 06:00 02/26/24 06:00
I&O
02/25/24 02/26/24 02/27/24
06:59 06:59 06:59
Intake Total 4370.0 / 4370.0 1105.0 / 1105.0
Output Total 900 / 900 590 / 590
Balance 3470.0 / 3470.0 515.0 / 515.0
Review of Systems
-
History Source: Patient
All other systems: Reviewed and negative
Physical Exam
-
General: No Apparent Distress
HEENT: Moist Mucous Membranes
Respiratory: Clear to Auscultation (anteriorly)
Cardiac: Regular Rhythm, S1/S2 and Tachycardic
GI: Soft, Nondistended, Normal Bowel Sounds, Tender (some discomfort in lower left abdo but no rebound or guarding ) and Other (rectal tube in place)
Musculoskeletal: No Edema
Skin: Warm and Dry; Negative Rash
Neuro: AO x 3
Psych: Other (flat affect, refusing care and refusing to listen to explanation of illness )
Data Reviewed
-
Diagnostic Radiology: Report Reviewed by me
[2024-02-26] MEDS: NON-FORMULARY ITEM 1 UNIT RECTAL ×2 (08:03→13:02)
--- NOTE | 2024-02-26 08:25 | CM ---
CM spoke with Colt ([phone]) from [facility] in [place], reports patient is a resident in their Personal Long Term, patient originally went to [facility] for rehab, goal was to return to [facility]. CM reports per [facility], patient
is a LTC resident. Colt reports she has had not received any return calls from [facility], would like patient to be at a closer facility to them, requesting referrals to [facility]. Colt reports patient typically uses a
walker to ambulate. Referrals sent in [facility]. CM discussed if patient is clear for discharge with no other accepting facilities, patient will need to return to [facility], can look into switching facilities once at [facility] as well. CM will
continue to follow for all discharge planning needs.
Plan; additional SNF referrals sent out to [facility].
--- NOTE | 2024-02-26 08:37 | CON.ID ---
Consultation
-
Date/Time Consultation Requested: 02/26/24 8:21
Date/Time Consultation Performed: 02/26/24 8:38
Requesting Provider: Dr Nolan
Performing Provider: Dr Delvalle
Reason for Consultation: Colitis on imaging, sepsis
Chief Complaint / Past History
Chief Complaint
poor PO intake, leukocytosis
History of Present Illness
Ms Oneill is a 53 year old female with history of schizophrenia, dementia, breast cancer who presented here after care home staff noted decreased PO intake and leukocytosis to 17.2 on 02/20 outpatient. Of note patient getting weekly CBCs at
[facility] for 'dementia' - unclear indication to me. Reports no complaints. She denies headache, chest pain, abdominal pain, nausea, vomiting, or diarrhea. History is limited by the condition of the patient - not responding to all questions.
EMS reported greenish vaginal discharge and vaginal swab was done. Note that she was on fluid restriction 02/16 with house shake daily but refusing food and with minimal oral intake reported by staff 02/16. Home medications include a single IM dose
of ceftriaxone 1 gm then cefpodixime 200 mg PO BID x7 days. Ceftriaxone was hand written appears to have been ordered 02/17 but paper cut off. CXR 02/13 no infiltrates. patient is unsure why she was on antibiotics. Outpatient UA without pyuria or
bacteria on 02/18/24 and culture <10K GNR without further ID.. On arrival afebrile, tachycardic 100s, BP of 86/68. Admission WBC 16.3, with L shift, eos present, hgb 13.2, Plt 166, Na 126, Cl 95, Cr 0.4, lactate 0.7, LFTs not done.Random cortisol
15.3, UA 6-10 Wbc/hpf and few bacteria, urine culture ultimately no growth, covid ag negative. CXR no infiltrates. She was empirically started on Ceftriaxone, BP initially improved with IVF, but still remains low. Na remains low. Unclear if she
has chronic hypotension - no previous records on file here, was on [facility]ER propranolol for anxiety. patient started on midodrine. Leukocytosis progressed 16.3 --> 15.5 --> 23.2 --> 29.4 and she was switched to zosyn on HD3. Developed abdominal pain
HD4, CT showed colitis, uterus unremarkable C diff ag/toxin positive; refusing oral medications, started on IV metronidazole and rectal vancomcyin, zosyn discontinued.
Past History
Additional Past Medical History:
Dementia
Schizophrenia
anxiety
high cholesterol
Hypothyroidism
Dysphagia
GERD
Essential HTN
Breast Cancer - on aromatase inhibitor
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
Gallstone Ileus
Hep C - unclear if treated
Past Surgical History: None
Allergy History:
diphenhydramine Allergy (Unknown, Verified 02/22/24 19:08)
Unknown
lithium Allergy (Unknown, Verified 02/22/24 19:08)
Unknown
Medications Reviewed: Yes
Social History
Tobacco: Other (unable to obtain)
Living: [facility]
Employment: Not Employed
Family History
Family History: Not Pertinent
Review of Systems
Review of Systems
General: Negative Fever or Chills
All systems: All other systems were reviewed and were negative
Vital Signs
Temp Pulse Resp BP Pulse Ox
99 F 114 28 88/68 97
02/26/24 04:01 02/26/24 06:00 02/26/24 06:00 02/26/24 06:00 02/26/24 06:00
Physical Exam
Physical Exam
Constitutional: No Acute Distress, Comfortable and Obese
Head: Other (neck supple, no tenderness over the sinuses - refuses to open her mouth)
Cardiovascular: S1/S2 and Other (tachycardic); Negative Murmur or Rub
Pulmonary: Clear (on anterior exam only - refused turn), Symmetric and Non Labored; Negative Wheezes, Rales or Rhonchi
Gastrointestinal: Soft, Non Tender, Non Distended and Normal Bowel Sounds
Genito-Urinary: Negative Suprapubic Tenderness
Extremities: Negative Edema
Skin: Warm and Dry; Negative Rash or Jaundice
Wound: None (including heels)
Neurological: Awake, Alert and Other (cannot assess orientation would not respond to questions)
Psychological: Calm
Lines: PIV (foot and arm, no erythema, warmth or tenderness)
Lab / Diagnostic Study Results
Abs Immat Gran (auto) 0.3 10^3/uL (0-0.05) H 02/22/24 19:36
Absolute Neuts (auto) 12.4 10^3/uL (1.4-6.5) H 02/22/24 19:36
Absolute Lymphs (auto) 2.5 10^3/uL (1.2-3.4) 02/22/24 19:36
Absolute Monos (auto) 1.0 10^3/uL (0.1-0.6) H 02/22/24 19:36
Absolute Basos (auto) 0.1 10^3/uL (0-0.2) 02/22/24 19:36
Immature Gran % 1.8 % (0-0.5) H 02/22/24 19:36
Neutrophils % 75.7 % (42.2-75.2) H 02/22/24 19:36
Lymphocytes % 15.1 % (20.5-51.1) L 02/22/24 19:36
Monocytes % 5.9 % (1.7-9.3) 02/22/24 19:36
Eosinophils % 0.7 % (0-6) 02/22/24 19:36
Basophils % 0.8 % (0-2) 02/22/24 19:36
Lactic Acid Cancelled 02/22/24 23:45
C-Reactive Protein 196.50 mg/L (0.0-10.00) H 02/25/24 21:30
Microbiology Results
Micro:
02/22/24 23:47 Wound Culture - Preliminary
Skin Surface Gram negative bacilli
Enterococcus species
Gram Stain - Preliminary
02/22/24 19:45 Blood Culture - Preliminary
Blood/Venous No Growth in 72 hours- Final report to follow
02/22/24 19:36 Blood Culture - Preliminary
Blood/Venous No Growth in 72 hours- Final report to follow
02/25/24 15:54 Salmonella/Shigella Culture - Pending
Feces/Stool Campylobacter Culture - Pending
Shiga Toxin Test - Pending
Stool Leukocytes - Final
02/25/24 15:54 Cryptosporidium/Giardia - Final
Feces/Stool Negative for Cryptosporidium and/or Giardia Lamblia
antigens.
C. difficile GDH Antigen & Toxins - Final
Toxigenic C.difficile Positive
02/22/24 20:23 Urine Culture - Final
Urine NO GROWTH
02/23/24 03:23 MRSA Screen - Final
Nose No Methicillin Resistant Staphylococcus aureus isolated.
Assessment / Plan
# C difficile colitis - Severe
# Leukocytosis
- AXR to reassess for megacolon; not IDd on CT 02/23 however with subsequent progression of leukocytosis would reassess now.
- currently refusing essential medications - asked psychiatry to clarify competence
- from my perspective patient is able to articulate a decision (leave me alone, stop), able to articulate a clear reason for the decision (I dont feel right) and decision is consistent through time (about 15 minutes). I believe she is competent to
make medical decisions for herself but would defer to psychiatry
- if competent then patient can refuse treatments and hospice would be a consideration
- if not competent then would place NGT for oral vanc and consider restraints - increased dose to 500 mg PO QID
- metronidazole associated with nausea, however with prolonged QTc difficult to empirically treat for nausea, dose is appropriate for C diff, continue at present dose
- having liquid stools via FMS - unlikely to retain an enema
- stop PPI; an H2 marshall could be considered if needed. Risk of relapse from C diff with PPI.
- I held PRN cathartics and iron - appears to have not been given
- diet per GI
# Sepsis
# Hypotension
- nonfocal exam including anterior skin exam and heels - patient refused turn, neck and sinuses supple, refused to open mouth, chest clear on anterior exam (refused turn), abdomen soft, refused exam, heels without wounds. Denies sick contacts,
[facility] staff records that she was bed bound [facility]. Denies animal exposures at [place]. Poor oral intake at least as far back as 02/16. While she definitely has C difficile now, we have not yet identified an initial cause of sepsis. Hypovolemia would
be part of my differential.
- blood cultures x2 no growth to date
- lfts pending
- initial UA minimal pyuria, urine culture finalized negative
- COVID ag ordered
- CXR clear, - CT abdomen minimal biliary ductal dilatation (likely physiologic), colitis, normal uterus
- a vaginal culture was done 02/21 in the ER showing enterobacter x2 and enterococcus - likely colonization. CT with normal uterus
- CRP 02/24 195, not done earlier in the admission
- propranolol ordered but has not been administered since arrival
- note midodrine started here
# Polypharmacy
# Schizophrenia
# Dementia
- would consider limiting nonessential medications which might improve patients compliance
- note [facility] ambulatory dysfunction recorded at [facility], poor oral intake in the setting of fluid restriction
Care Review
Plan reviewed with: Physician (Dr Nolan - recs)
[2024-02-26] MEDS: NSS 500 IV ×2 (08:41→09:35)
--- NOTE | 2024-02-26 08:46 | PTCARENOTE ---
pt received this am, agitated, uncooperative. refusing all po intake and meds. pt refused labs. Dr. Leo and GI MD at bedside and aware of refusal. okay per dr. leo for straight cath- pt with no urine over night, bladder scanned 290, straight
cathed for 300cc mila urine. dignicare in place, flushed and vanco enema given per order. ivf continue, ivfb infusing. am care provided. pt refusing oral care. pt given education and explained all care, pt continues to refuse most care and any
intake. pt on room air, sinus tach on monitor. all safety precautions in place, call garzon within reach.
--- NOTE | 2024-02-26 08:53 | W.PN.GI.CBS2 ---
Addendum entered and electronically signed by Hardik Nathan MD 02/26/24 14:08:
I saw and examined the patient.
The HULL BUILDER or PA's note was reviewed and I agree with the note.
Comment: 53 yo F pmh schizophrenia p/w sepsis found to have CDI.
Appreciate ID consult. AXR reviewed no megacolon.
D/w hospitalist in detail.
Patient refusing oral meds. Psych following. PO liquid vanco ordered, on enema and IV flagyl.
Stressed to pt importance of taking medications and risk of non compliance including but not limited to .
Original Note:
Today's Communication / Plan
-
noted + c-diff cx on vanco enema and IV Flagyl
reviewed with nursing staff pt refusing medication despite discussion with patient on need for treatment due to severity of disease process-- PO liquid vanco added if able to get pt to take
CRP 196.5,fecal josefa pending
reviewed with Dr. Nolan she will reach out to contact on chart to discuss
agree with ID eval with worsening leukocytosis
appreciate psych input
trend hbg --but pt declining lab draw this am -- iron studies pending
consider eventual MRCP with ductal dilation when improved from current sepsis- cdiff consider OP if pt willing to proceed - LFT pending
remains on regular diet but pt declining diet will change to full liquid diet -- advance as tolerated when sepsis improves
Assessment / Plan
-
53 y.o. female w/ pmhx dementia and schizophrenia admitted with leukocytosis and poor PO intake found to be septic now with diarrhea and findings of acute colitis on imaging. 02/24 C-diff +. unclear if hx EGD or colon in past.
-c-diff colitis with sepsis with hypotension, tachycardia, elevate CRP
leukocytosis
-hyponatremia
-anemia
-biliary ductal dilation
-adrenal lesion
other medical problems:
-hx early dementia/dysphagia
-schizophrenia
--cholelithiasis
PLAN:
noted + c-diff cx on vanco enema and IV Flagyl
reviewed with nursing staff pt refusing medication despite discussion with patient on need for treatment due to severity of disease process-- PO liquid vanco added if able to get pt to take
CRP 196.5,fecal josefa pending
reviewed with Dr. Nolan she will reach out to contact on chart to discuss
agree with ID eval with worsening leukocytosis
appreciate psych input
trend hbg --but pt declining lab draw this am -- iron studies pending
consider eventual MRCP with ductal dilation when improved from current sepsis- cdiff consider OP if pt willing to proceed - LFT pending
remains on regular diet but pt declining diet will change to full liquid diet -- advance as tolerated when sepsis improves
Subjective
Subjective
Date of Service: February 26, 2024
Pt still refusing oral medication + continued diarrhea
Objective
Data Reviewed
Laboratory Data:
Laboratory Results
Magnesium 2.0 mg/dl (1.6-2.3) 02/23/24 03:42
Total Bilirubin Cancelled 02/22/24 19:36
AST Cancelled 02/22/24 19:36
ALT Cancelled 02/22/24 19:36
Alkaline Phosphatase Cancelled 02/22/24 19:36
Vital Signs and I&O:
Vital Signs
Temp Pulse Resp BP Pulse Ox
99 F 114 28 88/68 97
02/26/24 04:01 02/26/24 06:00 02/26/24 06:00 02/26/24 06:00 02/26/24 06:00
I&O
02/25/24 02/26/24 02/27/24
06:59 06:59 06:59
Intake Total 4370.0 / 4370.0 1105.0 / 1105.0 1140 / 1140
Output Total 900 / 900 590 / 590 300 / 300
Balance 3470.0 / 3470.0 515.0 / 515.0 840 / 840
Physical Exam
Physical Exam
HEENT: Anicteric, Moist mucous membranes and Other (pale appearing )
Cardiology: Other (tachy )
Pulmonary: Clear
GI: Soft, Non Distended and Tender (mild )
Extremities: No Edema
Neuro: Other (awake and alert declining treatments )
[2024-02-26] MEDS: COGENTIN PO (09:00)
[2024-02-26] MEDS: ABILIFY PO (09:00)
[2024-02-26] MEDS: FEOSOL PO (09:00)
[2024-02-26] MEDS: ARIMIDEX PO (09:00)
[2024-02-26] MEDS: KCL PO (09:01)
[2024-02-26] MEDS: NEURONTIN PO ×3 (09:01→21:22)
[2024-02-26] MEDS: ProAmatine PO ×3 (09:01→17:03)
[2024-02-26] MEDS: PROTONIX PO (09:01)
[2024-02-26] MEDS: VITAMIN D3 (cholecalciferol) PO (09:01)
[2024-02-26] MEDS: ZOLOFT PO (09:01)
[2024-02-26] MEDS: OSCAL CAL 500 PO (09:01)
[2024-02-26] MEDS: MAGNESIUM OXIDE PO (09:03)
[2024-02-26 09:57] LABS: COVID-19 Antigen Negative (Negative)
--- NOTE | 2024-02-26 10:52 | VATNOTE ---
PICC order d/t limited IV access. Patient currently does not have medical need for PICC other than difficult access/lab draws. However patient is uncooperative and refusing all access attempts. MD aware, pending psych recommendation and will follow
up with RN to discuss plan of action on attempting a picc vs midline.
[2024-02-26] MEDS: FIRVANQ PO (13:02)
[2024-02-26] MEDS: NSS 1000 IV (13:02)
[2024-02-26 13:16] LABS: Hematocrit 25.9 % (37.0-47.0); Hemoglobin 9.4 g/dL (12.0-16.0); Mean Corp Hgb Conc. 36.3 g/dL (33.0-37.0); Mean Corpuscular Hgb 28.8 pg (27.0-31.0); Mean Corpuscular Volume 79.4 fL (81.0-99.0); Mean Platelet Volume 9.9 fL (7.4-10.4); Platelet Count 196 10^3/uL (130-400); Red Blood Cell Count 3.26 10^6/uL (4.20-5.40); Red Cell Dist. Width 15.2 % (11.5-14.5); White Blood Cell Count 21.7 10^3/uL (4.8-10.8)
[2024-02-26 14:48] LABS: ALT (SGPT) < 10 U/L (0-35); AST (SGOT) 9 U/L (14-36); Albumin 1.3 g/dl (3.5-5.0); Alkaline Phosphatase 75 U/L (38-126); Blood Urea Nitrogen < 2 mg/dl (7-17); Calcium 6.8 mg/dl (8.4-10.2); Carbon Dioxide 22 mmol/L (22-30); Chloride 109 mmol/L (98-107); Estimated Creatinine Clearance 108 ml/min; Glucose 71 mg/dl (70-99); Potassium 3.2 mmol/L (3.5-5.1); Sodium 131 mmol/L (135-145); Total Bilirubin 0.1 mg/dl (0.2-1.3); eGFR > 60.00
[2024-02-26 14:53] LABS: Total Iron Binding Capacity 101 ug/dl (265-497)
[2024-02-26] MEDS: KCL 270 MEQ IV (15:07)
--- NOTE | 2024-02-26 15:08 | W.PN.UPDATE ---
Update Note
Progress Note Update
patient seen chart reviewed. discussed with nursing. patient seen by dr sandy earlier this week patient w hx schizophrenia . lived at [facility] for many years now at [facility]. was sent here bc possible sepsis and was found to have c diff. the
patient was on a number of psych medications adjusted by dr sandy. she was taking 600 mg clozaril ten of abilify ten of haldol inderal 10 mg bid zolfot 100 mg daily depakote 1000 mg q hs cogentin two mg bid. clozaril decreased to 400 mg daily
and level ordered. others were continued. the patient has been refusing meds. this consult ordered for ? re competence. the patient had very little interaction with me. she could not tell me why she was here or even where she was 'i forget'. she
could not tell me the year and kept repeating 'i will talk to my doctor when i get out of here '. i told her i was one of the doctors treating her and explained that i was a psychiatrist. she said ' i will talk to my psychiatrist' but then when i
asked who was her psych she said 'i don't know. ' she did says occasionally she hears voices but could not elaborate. i explained why we were so concerned about her illness and why she needed antibiotics but she would only say 'i will talk to my
doctor. ' based on the lack of understanding of the seriousness of her medical condition and the need for treatment and her refusal to cooperate based on no logical reasoning, i would opine that she is NOT competent to make medical decisions on her
own behalf. i will cut back on some of the po psych meds to make the burden of taking meds less onerous but likely she will refuse anyway. have cut abilify to 5 mg cogentin to one mg bid (she does not seem to have much cogwheeling rigidity upon
wrist exam which she did let me do to some extent) stop zoloft. left in place klonopin prn and depakote. level was low but she had not received depakote. depakote could also be given iv . not clear to me how necessary this is. will see her
tomorrow.
[2024-02-26 15:27] LABS: Iron 36 ug/dl (37-170); Magnesium 1.6 mg/dl (1.6-2.3); Percent Saturation 35 % (20-50)
--- NOTE | 2024-02-26 15:34 | W.PN.UPDATE ---
Addendum entered and electronically signed by Leslee Nolan MD 02/26/24 16:32:
patient took liquid vancomycin with chocolate milk this afternoon. further discussed with Dr. Delvalle and if patient doesn't take continuously, we do not have time to wait and she needs dobhoff for administration.
Original Note:
Update Note
Progress Note Update
spoke to Colt, patient's catalytic case operator, and gave medical update. She states she has a good rapport with her and will be able to visit tomorrow afternoon and encourage medications.
[2024-02-26 15:38] LABS: Phosphorus 2.4 mg/dl (2.5-4.5)
[2024-02-26] MEDS: FIRVANQ 500 MG PO ×2 (15:54→22:10)
[2024-02-26] MEDS: NON-FORMULARY ITEM RECTAL ×2 (16:10→22:10)
[2024-02-26] MEDS: LOVENOX 40 MG SC (17:03)
--- NOTE | 2024-02-26 17:45 | PTCARENOTE ---
Pt received from ICU. Assessment as documented. Able to make needs known, call garzon within reach.
[2024-02-26] MEDS: LIPITOR PO (21:21)
[2024-02-26] MEDS: MIRAPEX PO (21:21)
[2024-02-26] MEDS: CLOZARIL PO (21:21)
[2024-02-26] MEDS: DEPAKOTE (12 HR RELEASE) PO (21:21)
[2024-02-27] VITALS (12 sets, daily range): BP systolic 90–121; BP diastolic 54–83; BMI 32.4
--- NOTE | 2024-02-27 00:58 | PTCARENOTE ---
pt refusing all PO meds tonight- pt questioned on why she is refusing medications, pt stated 'i will not get reimbursed for them'. pt educated on importance of taking medications. pt with c/o nausea- vomited clear liquid x2- pt refusing any nausea
meds at this time. dignisheild intact- some leakage noted- flushed and patient cleaned up. pt was agreeable to taking PO vanco tonight- given to patient in apple juice, taken without issues. pt flat, agitated with staff at times. care ongoing.
[2024-02-27] MEDS: NSS IV (02:36)
[2024-02-27] MEDS: FLAGYL 500 MG 100 IV ×3 (04:20→19:51)
[2024-02-27] MEDS: NSS 1000 IV ×2 (04:20→17:51)
[2024-02-27] MEDS: SYNTHROID PO (04:50)
[2024-02-27] MEDS: FIRVANQ 500 MG PO ×4 (04:50→22:20)
--- NOTE | 2024-02-27 04:53 | PTCARENOTE ---
pt edgard pushed out, pt cleaned up, replaced new one this AM- pt bladder scanned for 431ml, straight cath'd for 400ml of mila urine. pt took PO madinao this AM with apple juice. refusing labs this AM- care ongoing.
--- NOTE | 2024-02-27 07:49 | W.PN.HOSP.TC ---
Today's Communication/Plan
-
continue oral Vanc - patient taking when mixed with chocolate milk or apple juice
she is refusing all other meds
refused labs this AM - discussed with RN need to keep trying
her CM Colt will visit today
Assessment / Plan
Assessment / Plan
53 woman with early dementia and subsequently was referred from local group home for concern of sepsis with decreased oral intake and abnormal labs. CT w/ e/o colitis and C. Diff positive.
CT A/P 02/24/24
IMPRESSION:
1. Concentric abnormal mural thickening of the colon extending from the mid ascending colon through the rectum, findings consistent with acute colitis. Infectious and inflammatory etiologies are the most likely differential considerations. No
signs of abscess formation or drainable collection.
2. Cholelithiasis. No signs of acute gallbladder inflammatory change.
3. Bilateral adrenal thickening likely related to hyperplasia. Additional 1.4 cm low-attenuation left adrenal lesion, most likely benign adenoma.
TTE 02/25/24
CONCLUSIONS
Normal biventricular size and systolic function without regional wall motion
abnormality.
No significant valvular disease.
No prior study available for comparison.
Clinical sepsis 2/2 C. Diff Infection
Acute colitis
-C. Diff positive
-appreciate GI consult
-started on Vanc enemas and IV Flagyl. Initially was refusing PO. We have ordered liquid Vancomycin which is being mixed with apple juice and chocolate milk and patient taking. If she refuses would need dobhoff as she does not have competence.
Patient's pillowcase sewer, Colt, will visit with patient today ([phone] ext [phone]) from [facility] in [place]. She reports good rapport with patient. Hopefully can continue to convince her to take meds/obtain labs (still waiting on today)
-GI and ID consults appreciated
Systolic Hypotension - MAP OK and cortisol WNL. Improving this AM
-TTE results above, WNL
-continue IVF and bolus as needed
Hyponatremia- hypovolemia related.
-urine sodium checks 5 then 9
-IVF, awaiting repeat labs today
Hypokalemia -replete
Anemia - drop in HH noted - no obvious external bleeding. suspect dilutional. Check iron studies and follow for any external bleeding.
-stable
Hypothyroidism -TSH 0.04. She is on thyroid supplements at the high dose. Unclear most TSH. I will decrease the dose and follow TSH. Will try and obtain old information
*patient refusing synthroid
History of early dementia/dysphagia-patient without agitation. Continue with her home regimen. Patient refusing oral medication.
-appreciate psychiatry consult
patient refusing all medications
Code: Full
Discussed with IMU RN
Total time spent on today's encounter was 52 minutes which included time spent in counseling the patient/ regarding diagnosis and treatment plan as listed above, goals of care, and symptom management. Case was discussed with nursing staff,
specialists, All labs and imaging personally reviewed by me. Remainder the time spent in detailed review of previous records, lab data, imaging, and other medical provider documentation.
Anticipated Discharge: > 48 hours
Subjective/Interval History
-
Date of Service: February 27, 2024
refusing to speak to me this morning, under blankets
denies pain
Objective Data
-
Labs:
Laboratory Results
02/27/24
06:00
WBC Pending
Hgb Pending
Hct Pending
Plt Count Pending
Sodium Pending
Potassium Pending
Chloride Pending
Carbon Dioxide Pending
BUN Pending
Creatinine Pending
Glucose Pending
Calcium Pending
Total Bilirubin Pending
AST Pending
ALT Pending
Alkaline Phosphatase Pending
Vital Signs:
Vital Signs
Temp Pulse Resp BP Pulse Ox
98.5 F 109 24 99/64 99
02/27/24 03:29 02/27/24 06:00 02/27/24 06:00 02/27/24 06:00 02/27/24 06:00
I&O
02/26/24 02/27/24 02/28/24
06:59 06:59 06:59
Intake Total 1105.0 / 1105.0 3107.5 / 3107.5
Output Total 590 / 590 700 / 700
Balance 515.0 / 515.0 2407.5 / 2407.5
Review of Systems
-
History Source: Patient
All other systems: Reviewed and negative
Physical Exam
-
General: No Apparent Distress
HEENT: Moist Mucous Membranes
Respiratory: Clear to Auscultation (anteriorly)
Cardiac: Regular Rhythm, S1/S2 and Tachycardic
GI: Soft, Nondistended, Normal Bowel Sounds, Tender (some discomfort in lower left abdo but no rebound or guarding ) and Other (rectal tube in place)
Musculoskeletal: No Edema
Skin: Warm and Dry; Negative Rash
Neuro: AO x 3
Psych: Other (flat affect, refusing care and refusing to listen to explanation of illness )
Data Reviewed
-
Diagnostic Radiology: Report Reviewed by me
Labs: Labs Reviewed by me
[2024-02-27] MEDS: ARIMIDEX PO (08:40)
[2024-02-27] MEDS: NEURONTIN PO ×3 (08:41→21:11)
[2024-02-27] MEDS: NON-FORMULARY ITEM RECTAL ×4 (08:41→22:20)
[2024-02-27] MEDS: KCL PO (08:41)
[2024-02-27] MEDS: VITAMIN D3 (cholecalciferol) PO (08:42)
[2024-02-27] MEDS: ProAmatine PO ×3 (08:42→17:54)
[2024-02-27] MEDS: OSCAL CAL 500 PO (08:42)
[2024-02-27] MEDS: MAGNESIUM SULFATE 100 IV (08:45)
[2024-02-27 08:51] LABS: % Basophils 0.3 % (0-2); % Eosinophils 1.2 % (0-6); % Lymphocytes 10.4 % (20.5-51.1); % Monocytes 4.4 % (1.7-9.3); % Neutrophils 82.7 % (42.2-75.2); Absolute Basophils 0.1 10^3/uL (0-0.2); Absolute Eosinophils 0.2 10^3/uL (0-0.7); Absolute Immature Granulocytes 0.2 10^3/uL (0-0.05); Absolute Lymphocytes 1.6 10^3/uL (1.2-3.4); Absolute Monocytes 0.7 10^3/uL (0.1-0.6); Absolute Neutrophils 12.7 10^3/uL (1.4-6.5); Hematocrit 25.1 % (37.0-47.0); Hemoglobin 8.7 g/dL (12.0-16.0); Mean Corp Hgb Conc. 34.7 g/dL (33.0-37.0); Mean Corpuscular Hgb 28.5 pg (27.0-31.0); Mean Corpuscular Volume 82.3 fL (81.0-99.0); Mean Platelet Volume 9.4 fL (7.4-10.4); Nucleated Red Blood Cells % 0 %; Platelet Count 224 10^3/uL (130-400); Red Blood Cell Count 3.05 10^6/uL (4.20-5.40); Red Cell Dist. Width 15.5 % (11.5-14.5); White Blood Cell Count 15.4 10^3/uL (4.8-10.8)
[2024-02-27 08:59] LABS: Ionized Calcium 1.17 mMOL/L (1.15-1.33)
[2024-02-27 09:14] LABS: ALT (SGPT) < 10 U/L (0-35); AST (SGOT) 10 U/L (14-36); Albumin 1.3 g/dl (3.5-5.0); Alkaline Phosphatase 81 U/L (38-126); Blood Urea Nitrogen 2 mg/dl (7-17); Calcium 7.3 mg/dl (8.4-10.2); Carbon Dioxide 21 mmol/L (22-30); Chloride 109 mmol/L (98-107); Estimated Creatinine Clearance 108 ml/min; Glucose 79 mg/dl (70-99); Magnesium 1.7 mg/dl (1.6-2.3); Phosphorus 2.6 mg/dl (2.5-4.5); Potassium 3.5 mmol/L (3.5-5.1); Sodium 131 mmol/L (135-145); Total Bilirubin 0.2 mg/dl (0.2-1.3); Total Protein 3.2 g/dl (6.3-8.2); eGFR > 60.00
--- NOTE | 2024-02-27 09:46 | W.PN.ID1 ---
Addendum entered and electronically signed by Leslie Delvalle MD 02/27/24 10:07:
responding yes and no appropriately
taking her medications in juice
Original Note:
Date of Service
Date of Service: February 27, 2024
Today's Communication
- continue oral vancomycin 500 mg PO QID
- continue IV metronidazole for now - will likely stop in the near future; may help with medication
- prefer to avoid PPI if possible
Assessment / Plan
# C difficile colitis - improving
# Sepsis
# Hypotension - improving
# Leukocytosis
- AXR - no evidence of megacolon 02/25
- blood cultures x2 no growth to date
- lfts normal
- COVID ag negative
- continue oral vancomycin 500 mg PO QID
- continue IV metronidazole for now - will likely stop in the near future; may help with medication
- prefer to avoid PPI if possible
# Polypharmacy
# Schizophrenia
# Dementia
- note [facility] [employer] ambulatory dysfunction recorded at [facility], poor oral intake in the setting of fluid restriction
Chief Complaint
-: C-diff
Subjective / Review of Systems
afebrile
MAPS now in the 70s-80s improved from 60s-70s
wbc iproved
hgb 8.7 today
plt iproved
has taken the last 3 doses of oral vancomycin
Vital Signs / Physical Exam
Vital Signs
Vital Signs
Temp Pulse Resp BP Pulse Ox
98.5 F 109 24 99/64 98
02/27/24 07:59 02/27/24 06:00 02/27/24 06:00 02/27/24 06:00 02/27/24 08:30
Physical Exam
Constitutional: No Acute Distress and Chronically Ill
Cardiovascular: Regular Rate and S1/S2; Negative Murmur or Rub
Pulmonary: Clear and Symmetric; Negative Wheezes or Rales
Gastrointestinal: Soft, Non Tender, Non Distended and Normal Bowel Sounds
Skin: Warm and Dry; Negative Rash or Jaundice
Objective Data
Lab Data
Lab Results
02/27/24 08:44
02/27/24 08:44
Estimated Creat Clear 108 ml/min 02/27/24 08:44
Lactic Acid Cancelled 02/22/24 23:45
Total Bilirubin 0.2 mg/dl (0.2-1.3) 02/27/24 08:44
AST 10 U/L (14-36) L 02/27/24 08:44
ALT < 10 U/L (0-35) 02/27/24 08:44
Alkaline Phosphatase 81 U/L (38-126) 02/27/24 08:44
C-Reactive Protein 196.50 mg/L (0.0-10.00) H 02/25/24 21:30
Most recent labs reviewed.
Micro Results:
02/25/24 15:54 Salmonella/Shigella Culture - Final
Feces/Stool No Salmonella, Shigella, Aeromonas or Plesiomonas species
isolated.
Campylobacter Culture - Final
No Campylobacter species isolated.
Shiga Toxin Test - Pending
Stool Leukocytes - Final
02/22/24 19:45 Blood Culture - Preliminary
Blood/Venous No Growth in 4 days- Final report to follow
02/22/24 19:36 Blood Culture - Preliminary
Blood/Venous No Growth in 4 days- Final report to follow
02/22/24 23:47 Wound Culture - Final
Skin Surface Enterobacter cloacae#2
Enterobacter cloacae
Enterococcus faecalis
Gram Stain - Final
02/25/24 15:54 Cryptosporidium/Giardia - Final
Feces/Stool Negative for Cryptosporidium and/or Giardia Lamblia
antigens.
C. difficile GDH Antigen & Toxins - Final
Toxigenic C.difficile Positive
02/22/24 20:23 Urine Culture - Final
Urine NO GROWTH
02/23/24 03:23 MRSA Screen - Final
Nose No Methicillin Resistant Staphylococcus aureus isolated.
--- NOTE | 2024-02-27 10:26 | W.PN.GI.CBS2 ---
Addendum entered and electronically signed by Hardik Nathan MD 02/27/24 13:54:
I saw and examined the patient.
The GREEN BUILDING ARCHITECT or PA's note was reviewed and I agree with the note.
Comment: 53 yo F schizophrenia p/w sepsis found to have CDI.
Not feeling well today.
Refusing all meds but taking oral vanco.
CRP and WBC trending down slowly.
ID following for CDI.
As below, Chetna provided outpatient GI follow up if pt willing to follow up, CT with 'minimal intrahep annmarie dil' normal LFTs, low suspicion can get MRI outpatient if pt agreeable.
GI will sign off please call with ?s.
Original Note:
Today's Communication / Plan
-
still with some loose stool with rectal tube in place
on IV Flagyl and oral vanco(pt taking in liquids) and enema (pt refusing)
minimal abd pain on exam will advance to low residue/low lactose diet
WBC improving
some drifting of hbg transfuse <7 no signs of active GI bleeding
02/24 CRP 196.5add repeat CRP, fecal josefa pending
reviewed with ID and psych this am
consider eventual MRCP with ductal dilation when improved from current sepsis- cdiff consider OP as pt refuses imaging - LFT normal
left contact for GI followup to again review for MRI if pt agreeable
Assessment / Plan
-
53 y.o. female w/ pmhx dementia and schizophrenia admitted with leukocytosis and poor PO intake found to be septic now with diarrhea and findings of acute colitis on imaging. 02/24 C-diff +. unclear if hx EGD or colon in past.
02/27/24 abd film
Portable supine examination limits evaluation.
Nonobstructive nonspecific bowel gas pattern.
Findings suggest mild persistent edema within the wall of the transverse colon. Consistent with the history of colitis.
-c-diff colitis with sepsis with hypotension, tachycardia, elevate CRP
-leukocytosis
-hyponatremia
-anemia
-biliary ductal dilation
-adrenal lesion
other medical problems:
-hx early dementia/dysphagia
-schizophrenia
--cholelithiasis
PLAN:
still with some loose stool with rectal tube in place
on IV Flagyl and oral vanco(pt taking in liquids) and enema (pt refusing)
minimal abd pain on exam will advance to low residue/low lactose diet
WBC improving
some drifting of hbg transfuse <7 no signs of active GI bleeding
02/24 CRP 196.5add repeat CRP, fecal josefa pending
reviewed with ID and psych this am
consider eventual MRCP with ductal dilation when improved from current sepsis- cdiff consider OP as pt refuses imaging - LFT normal
left contact for GI followup to again review for MRI if pt agreeable
Subjective
Subjective
Date of Service: February 27, 2024
brown liquidy stool on full liquid diet, pt under covers but will answer some questions
Objective
Data Reviewed
Laboratory Data:
Laboratory Results
02/27/24 08:44
02/27/24 08:44
Laboratory Results
Phosphorus 2.6 mg/dl (2.5-4.5) 02/27/24 08:44
Magnesium 1.7 mg/dl (1.6-2.3) 02/27/24 08:44
Total Bilirubin 0.2 mg/dl (0.2-1.3) 02/27/24 08:44
AST 10 U/L (14-36) L 02/27/24 08:44
ALT < 10 U/L (0-35) 02/27/24 08:44
Alkaline Phosphatase 81 U/L (38-126) 02/27/24 08:44
Vital Signs and I&O:
Vital Signs
Temp Pulse Resp BP Pulse Ox
98.5 F 109 24 99/64 98
02/27/24 07:59 02/27/24 06:00 02/27/24 06:00 02/27/24 06:00 02/27/24 08:30
I&O
02/26/24 02/27/24 02/28/24
06:59 06:59 06:59
Intake Total 1105.0 / 1105.0 3107.5 / 3107.5
Output Total 590 / 590 700 / 700
Balance 515.0 / 515.0 2407.5 / 2407.5
Physical Exam
Physical Exam
HEENT: Other (pale appearing )
Cardiology: Other (tachy)
Pulmonary: Clear
GI: Soft, Non Distended and Tender (mild )
Extremities: No Edema
Neuro: Other (pt with face covered-- some one word answers to questions cooperative for exam)
--- NOTE | 2024-02-27 11:29 | W.PN.UPDATE ---
Update Note
Progress Note Update
patient seen chart reviewed . patient told me she does not feel well today but did not elaborate. she said she was cold and i got her some warm blankets which seemed to be a +. she is refusing all po meds. i have stopped the clozaril as you cannot
restart after missing several days at the same dose and i am fearful it would be restarted . have also ordered depakote to be given iv as i am concerned that as the antipsychotics leave her today she will get more agitated interfering w her care.
will continue to follow. will check depakote level after three days of iv depakote
[2024-02-27] MEDS: DEPACON 55 MG IV ×2 (12:23→23:11)
--- NOTE | 2024-02-27 15:14 | CM ---
Patient from [facility] SN[facility] with Hx Schizophrenia, Dementia with Dx Clinical sepsis 2/2 C. Diff Infection, Acute colitis. Room air. Receiving IV Valproate Na, IV Flagyl, IVF. Seen by Psych - adjusting meds. PT & OT Evals; patient declined today.
Prior CM notes; referrals were made to [facility] at the behest of Colt ([phone] ext [phone]) from [facility] in [place] - referrals not found in [facility].
Phone calls x2 to Colt, Organic Chemist Browning Processor, [facility] [phone] ext [phone]); left messages requesting callback.
Spoke with Marcello Ch Roverrolando; the patient came to them from [facility] for rehab and has not met her rehab goals yet. The patient is not very cooperative for getting OOB and working with PT/OT. She is mostly withdrawn. Her mother passed
away and there is no assigned POA. [facility]'s contacts are:
Colt, who calls and visits frequently
José Luis Stover, [facility]
Azeem Cordoba, friend (ph [phone])
Kain Nieto, friend (ph [phone].
[facility] is able to accept the patient back when medically ready. SNF referral placed.
Plan: CM would need to find out who is decision maker if no POA, if patient has had an inpatient psych admission in the last few yrs which would necessitate a Level II referral for alternate SNF placement, and if patient wants to return to
[facility] or an alternate SNF for rehab if needed.
Plan follow up after PT/OT Evals.
--- NOTE | 2024-02-27 16:13 | PTCARENOTE ---
Pt presents as assessed. Flat, withdrawn, and agitated with staff. Refusing all meds except PO Vanco and refusing turns. Pt educated on plan of care repeatedly but continues to refuse care. Dignishield draining liquid stool but leaking around, sarah
care completed. No void as of yet, bladder scanned- see intervention. Extremely poor appetite, only drinking small amounts of juice at this time. Reports nausea but refusing antiemetics. Will continue to educate pt. Safe environment maintained.
[2024-02-27] MEDS: LOVENOX 40 MG SC (17:51)
--- NOTE | 2024-02-27 18:09 | PTCARENOTE ---
Pt agreeable to taking slightly over half of 1800 PO vanco dose-Then refusing to drink anything else. Dr. Nolan notified via TT. No further orders received at this time.
[2024-02-27] MEDS: LIPITOR PO (21:11)
[2024-02-27] MEDS: MIRAPEX PO (21:11)
[2024-02-28] VITALS (13 sets, daily range): BP systolic 37–125; BP diastolic 16–92
[2024-02-28] MEDS: NSS 1000 IV ×2 (04:15→17:24)
[2024-02-28] MEDS: FLAGYL 500 MG 100 IV (04:15)
[2024-02-28] MEDS: SYNTHROID PO (04:27)
[2024-02-28 04:34] LABS: Hematocrit 24.4 % (37.0-47.0); Hemoglobin 8.5 g/dL (12.0-16.0); Mean Corp Hgb Conc. 34.8 g/dL (33.0-37.0); Mean Corpuscular Hgb 28.3 pg (27.0-31.0); Mean Corpuscular Volume 81.3 fL (81.0-99.0); Mean Platelet Volume 9.1 fL (7.4-10.4); Platelet Count 239 10^3/uL (130-400); Red Cell Dist. Width 15.4 % (11.5-14.5); White Blood Cell Count 11.6 10^3/uL (4.8-10.8)
[2024-02-28 04:48] LABS: Blood Urea Nitrogen < 2 mg/dl (7-17); Calcium 7.2 mg/dl (8.4-10.2); Carbon Dioxide 20 mmol/L (22-30); Chloride 110 mmol/L (98-107); Estimated Creatinine Clearance 108 ml/min; Glucose 72 mg/dl (70-99); Magnesium 1.9 mg/dl (1.6-2.3); Potassium 3.3 mmol/L (3.5-5.1); Sodium 132 mmol/L (135-145); eGFR > 60.00
[2024-02-28] MEDS: FIRVANQ 500 MG PO (05:31)
[2024-02-28] MEDS: KCL 160 MEQ IV (05:31)
--- NOTE | 2024-02-28 06:06 | PTCARENOTE ---
pt has been getting straight cath'd on multiple shifts- bladder scanned this AM- 481ml. notified covering SEED ANALYSIS LABORATORY ASSISTANT of retention, pt uncooperative at times with straight cath's. order entered for medina for acute retention. pt tolerated well- urine dark
mila. pt also pushed out DigniShield again this AM- rectal trumpet placed at this time- working well so far. pt did take PO vanco this AM in apple juice without issues. care ongoing.
[2024-02-28 07:03] LABS: Clozapine, Quantitative 3560 ng/mL; Clozapine-N-Oxide,Quantitative 229 ng/mL; Norclozapine, Quantitative 460 ng/mL; Total Clozapine & Metabolites >4000 ng/mL (<=1500)
--- NOTE | 2024-02-28 07:11 | W.PN.HOSP.TC ---
Today's Communication/Plan
-
With downtrending leukocytosis continue oral vancomycin with juice and hopefully patient will continue to comply
IV metronidazole/
Vancomycin enemas
Continue to monitor electrolyte status/continue to try and obtain labs patient has a PICC line
Await urology input in regards to urine retention continue Tyler catheter
Assessment / Plan
Assessment / Plan
53 woman with early dementia and subsequently was referred from local custodial for concern of sepsis with decreased oral intake and abnormal labs. CT w/ e/o colitis and C. Diff positive.
CT A/P 02/24/24
IMPRESSION:
1. Concentric abnormal mural thickening of the colon extending from the mid ascending colon through the rectum, findings consistent with acute colitis. Infectious and inflammatory etiologies are the most likely differential considerations. No
signs of abscess formation or drainable collection.
2. Cholelithiasis. No signs of acute gallbladder inflammatory change.
3. Bilateral adrenal thickening likely related to hyperplasia. Additional 1.4 cm low-attenuation left adrenal lesion, most likely benign adenoma.
TTE 02/25/24
CONCLUSIONS
Normal biventricular size and systolic function without regional wall motion
abnormality.
No significant valvular disease.
No prior study available for comparison.
Clinical sepsis 2/2 C. Diff Infection
Acute colitis
-C. Diff positive
-appreciate GI consult
-started on Vanc enemas and IV Flagyl. Initially was refusing PO. We have ordered liquid Vancomycin which is being mixed with apple juice and chocolate milk and patient taking. If she refuses would need dobhoff as she does not have competence.
Patient's telehealth case manager, Colt, will visit with patient ([phone] ext [phone]) from [facility] in [place]. She reports good rapport with patient. Hopefully can continue to convince her to take meds/obtain labs this a.m. which continues to show
downtrending leukocytosis and C-reactive protein
-GI input and review of CT with minimal intrahepatic biliary dilatation and normal LFTs with low suspicion for obstruction so will obtain MRI as outpatient if patient agreeable.
-GI( signed off ) and ID consults appreciated
Systolic Hypotension - MAP OK and cortisol WNL. Improving this AM
-TTE results above, WNL
-continue IVF and bolus as needed
Hyponatremia- hypovolemia related.
-urine sodium checks 5 then 9
-IVF, still poor intake/potassium will be repleted
Hypokalemia -replete
Anemia - drop in HH noted - no obvious external bleeding. suspect dilutional. Check iron studies and follow for any external bleeding.
-stable
Hypothyroidism -TSH 0.04. She is on thyroid supplements at the high dose. Unclear most TSH. I will decrease the dose and follow TSH. Will try and obtain old information
*patient refusing synthroid
Urine retention
-Postvoid residuals over 450 repeatedly
-Now with indwelling Tyler catheter
-Urology consulted
History of early dementia/dysphagia-patient without agitation. Continue with her home regimen. Patient refusing oral medication.
-appreciate psychiatry consult
patient refusing all medications
Code: Full
Discussed with IMU RN
Total time spent on today's encounter was 52 minutes which included time spent in counseling the patient/ regarding diagnosis and treatment plan as listed above, goals of care, and symptom management. Case was discussed with nursing staff,
specialists, All labs and imaging personally reviewed by me. Remainder the time spent in detailed review of previous records, lab data, imaging, and other medical provider documentation.
Anticipated Discharge: 24 - 48 hours
Subjective/Interval History
-
Date of Service: February 28, 2024
Patient remains quite stoic and really does not interact continues to refuse all oral medications but is taking the oral vancomycin in the form of being mixed with apple juice answers yes or no and states no to abdominal pain she had to have a Tyler
catheter inserted due to continued fluid urine retention
Objective Data
-
Labs:
Laboratory Results
02/28/24
04:23
WBC 11.6 H
Hgb 8.5 L
Hct 24.4 L
Plt Count 239
Sodium 132 L
Potassium 3.3 L
Chloride 110 H
Carbon Dioxide 20 L
BUN < 2 L
Creatinine 0.2 L
Glucose 72
Calcium 7.2 L
Vital Signs:
Vital Signs
Temp Pulse Resp BP Pulse Ox
98.0 F 110 22 98/76 100
02/28/24 04:13 02/28/24 06:00 02/28/24 06:00 02/28/24 06:00 02/28/24 06:00
I&O
02/27/24 02/28/24 02/29/24
06:59 06:59 06:59
Intake Total 3107.5 / 3107.5 100 / 100
Output Total 700 / 700
Balance 2407.5 / 2407.5 100 / 100
Review of Systems
-
Unable to obtain full review of systems at this time due to: Dementia
History Source: Patient
Constitutional: Denies Fever
Physical Exam
-
General: No Apparent Distress
HEENT: Normocephalic
Respiratory: Clear to Auscultation
Cardiac: Regular Rhythm
GI: Soft, Nontender and Normal Bowel Sounds
Neuro: Awake
Data Reviewed
-
Total Time Spent with Patient (in minutes): 45
Labs: Labs Reviewed by me (White count trending down still now up to 11.6 hemoglobin 8.5/potassium 3.3 with an albumin that significantly depressed at 1.3 and a calcium of 7.2/CRP has dropped to 129)
--- NOTE | 2024-02-28 07:49 | CON.MD ---
Consultation - Medical
-
see dicated note
pt not responding to questions
admitted with sepsis- cdiff colitis
ucx negative
no known gu hx
has required serial straight cath for low urine output- no recorded voiding complaoints
medina in place- urine clear
start flomax
remove medina for TOV as pt becomes more responsive and ambulatory
--- NOTE | 2024-02-28 09:14 | W.PN.ID1 ---
Date of Service
Date of Service: February 28, 2024
Today's Communication
- continue oral vancomycin decreased dose to 125 mg PO QID, plan 10 days of rx 02/25 through 03/06
- stopped vancomycin enemas - could be restarted if consistently refusing PO, however she is taking oral meds consistently with encouragement
- stop IV metronidazole
- consider advancing to regular diet
Assessment / Plan
# C difficile colitis - improving
# Sepsis - resolved
# Leukocytosis
- continue oral vancomycin decreased dose to 125 mg PO QID, plan 10 days of rx 02/25 through 03/06
- stopped vancomycin enemas - could be restarted if consistently refusing PO, however she is taking oral meds consistently with encouragement
- stop IV metronidazole
- prefer to avoid PPI if possible
- consider advancing to regular diet
# Polypharmacy
# Schizophrenia
# Dementia
- note CROCHETER HAND ambulatory dysfunction recorded at [facility], poor oral intake in the setting of fluid restriction
Chief Complaint
-: C-diff
Subjective / Review of Systems
afebrile
bp borderline hypotension ongoing this AM - was normalized most of yesterday
minimal tachycardia
wbc 11.6
cr 0.2
blood cultures finalized neg last night
denies nausea. Says she's 'fine today,' and nods yes that 'fine' is better than yesterday which was 'bad'
has snacks at the bedside
hasnt eaten in two days
RN reports FMS leaking - still large amount of stool there
she agrees to taking the oral vanc in apple juice
Vital Signs / Physical Exam
Vital Signs
Vital Signs
Temp Pulse Resp BP Pulse Ox
97.3 F 110 22 98/76 100
02/28/24 07:57 02/28/24 06:00 02/28/24 06:00 02/28/24 06:00 02/28/24 06:00
Physical Exam
Constitutional: No Acute Distress
Cardiovascular: Regular Rate and S1/S2; Negative Murmur or Rub
Pulmonary: Clear and Symmetric; Negative Wheezes or Rales
Gastrointestinal: Soft, Non Tender, Non Distended and Normal Bowel Sounds
Skin: Warm and Dry; Negative Rash or Jaundice
Objective Data
Lab Data
Lab Results
02/28/24 04:23
02/28/24 04:23
Estimated Creat Clear 108 ml/min 02/28/24 04:23
Lactic Acid Cancelled 02/22/24 23:45
Total Bilirubin 0.2 mg/dl (0.2-1.3) 02/27/24 08:44
AST 10 U/L (14-36) L 02/27/24 08:44
ALT < 10 U/L (0-35) 02/27/24 08:44
Alkaline Phosphatase 81 U/L (38-126) 02/27/24 08:44
C-Reactive Protein 129.80 mg/L (0.0-10.00) H 02/27/24 08:44
Most recent labs reviewed.
Micro Results:
02/22/24 19:45 Blood Culture - Final
Blood/Venous No Growth - Final Report
02/22/24 19:36 Blood Culture - Final
Blood/Venous No Growth - Final Report
02/25/24 15:54 Salmonella/Shigella Culture - Final
Feces/Stool No Salmonella, Shigella, Aeromonas or Plesiomonas species
isolated.
Campylobacter Culture - Final
No Campylobacter species isolated.
Shiga Toxin Test - Final
No E. coli Shiga Toxin 1 or 2 detected.
Stool Leukocytes - Final
02/22/24 23:47 Wound Culture - Final
Skin Surface Enterobacter cloacae#2
Enterobacter cloacae
Enterococcus faecalis
Gram Stain - Final
02/25/24 15:54 Cryptosporidium/Giardia - Final
Feces/Stool Negative for Cryptosporidium and/or Giardia Lamblia
antigens.
C. difficile GDH Antigen & Toxins - Final
Toxigenic C.difficile Positive
02/22/24 20:23 Urine Culture - Final
Urine NO GROWTH
02/23/24 03:23 MRSA Screen - Final
Nose No Methicillin Resistant Staphylococcus aureus isolated.
[2024-02-28] MEDS: ProAmatine PO ×3 (09:40→17:47)
[2024-02-28] MEDS: KCL PO (09:40)
[2024-02-28] MEDS: NEURONTIN PO ×3 (09:40→23:00)
[2024-02-28] MEDS: FLOMAX PO (09:40)
[2024-02-28] MEDS: OSCAL CAL 500 PO (09:40)
[2024-02-28] MEDS: ARIMIDEX PO (09:40)
[2024-02-28] MEDS: VITAMIN D3 (cholecalciferol) PO (09:40)
[2024-02-28] MEDS: NON-FORMULARY ITEM RECTAL (09:41)
[2024-02-28] MEDS: DEPACON 55 MG IV (11:46)
[2024-02-28] MEDS: FIRVANQ 125 MG PO ×2 (11:47→17:22)
--- NOTE | 2024-02-28 12:00 | PTCARENOTE ---
Assumed care of patient this morning. She refused all of her ordered medications this morning other than the ones ordered IV. She was soiled this morning and she was originally cooperative with care but during patient stating 'that's enough'
frequently and when rolled on her right side, patient stated 'I cannot lay on this side' and pushed herself back over. Patient encouraged to eat lunch. Patient stating no multiple times and to 'leave me alone.' With attempting to pull down the
blankets from over her head, patient stated 'do not touch me.' Assessment, care and VS as charted.
[2024-02-28 12:10] LABS: Calprotectin, Fecal 909 ug/g (<=49)
--- NOTE | 2024-02-28 12:53 | W.PN.UPDATE ---
Update Note
Progress Note Update
patient seen chart reviewed . discussed w nursing. nursing is managing to get patient to take vancomycin in rand milk as ordered. nursing reports patient does balk at care eg cleaning after incontinence. the patient was resting in bed. not
agitated but also not at all interactive. attempted to engage in conversation with no success. she reports no pain. i asked her if there were anything i could do to make her stay here better..she just shook her head. at this point psychiatrically
she is only getting iv depakote. ordered level for tomorrow. i wonder how much of her medications she was even taking prior to admit. it may be that this list was ordered but she was not taking it. psych will look in on her on weekend.
--- NOTE | 2024-02-28 13:55 | CM ---
met with patient at bedside.she is cdiff + on po vanco and iv flagyl,cont iv depakote,medina to be removed for tov,start flomax,patient umcooperative with care/meds/refuses therapy:on ivf.cm from [facility] in [place] to visit patient today
[phone]. patient not cooperative with care/meds/refusing therpay eval.Plan:return to [facility] when stable for dc.
--- NOTE | 2024-02-28 16:54 | PTCARENOTE ---
Patient c/o that she is 'sick,' however patient will not elaborate on how she feels sick. She did state that she felt she may throw up and when asked if she would take nausea medication she responded with yes, but when I told her it was a shot she
declined. Patient also refused her Lovenox shot. Education provided about VTE but patient still refusing and states she doesnt want it because she is 'sick.' Pt is wearing her SCDs. Patient also attempting to refuse pericare following incontinence
of stool however, patient eventually agreed.
[2024-02-28] MEDS: LOVENOX SC (17:46)
--- NOTE | 2024-02-28 19:39 | PTCARENOTE ---
refusing meds and physical assessment-
[2024-02-28] MEDS: LIPITOR PO (23:00)
[2024-02-28] MEDS: MIRAPEX PO (23:00)
[2024-02-29] VITALS (13 sets, daily range): BP systolic 52–122; BP diastolic 37–81; PULSE 99; O2SAT 98
[2024-02-29] MEDS: FIRVANQ 125 MG PO ×4 (00:55→17:33)
[2024-02-29] MEDS: DEPACON 55 MG IV ×2 (00:55→11:26)
--- NOTE | 2024-02-29 04:37 | PTCARENOTE ---
remains uncooperative with meds- doing best to get po vanco in her drinks
[2024-02-29] MEDS: NSS 1000 IV ×2 (04:38→15:13)
--- NOTE | 2024-02-29 05:08 | PTCARENOTE ---
no blood return in midline- attempt made to draw blood- pt refusing to allow- pulling hand away when attempts made- tells staff to get out
[2024-02-29] MEDS: SYNTHROID PO (05:10)
[2024-02-29] MEDS: ARIMIDEX PO (08:21)
[2024-02-29] MEDS: FLOMAX PO (08:21)
[2024-02-29] MEDS: VITAMIN D3 (cholecalciferol) PO (08:21)
[2024-02-29] MEDS: KCL PO (08:21)
[2024-02-29] MEDS: ProAmatine PO ×3 (08:21→17:44)
[2024-02-29] MEDS: NEURONTIN PO ×3 (08:21→21:09)
[2024-02-29] MEDS: OSCAL CAL 500 PO (08:21)
--- NOTE | 2024-02-29 10:49 | W.PN.ID1 ---
Date of Service
Date of Service: February 29, 2024
Today's Communication
- continue oral vancomycin 125 mg PO QID, plan at least 10 days of rx through 03/06
- consider advancing to regular diet
Assessment / Plan
# C difficile colitis - improving
# Leukocytosis
- continue oral vancomycin 125 mg PO QID, plan at least 10 days of rx through 03/06
- prefer to avoid PPI if possible
- consider advancing to regular diet
# Polypharmacy
# Schizophrenia
# Dementia
- note EDITORIAL CARTOONIST ambulatory dysfunction recorded at [facility], poor oral intake in the setting of fluid restriction
Chief Complaint
-: C-diff
Subjective / Review of Systems
afebrile
bp stable this AM
am labs pending
has been taking oral vancomycin as prescribed
stools loose to liquid over last 24 hrs
no loose stools today
Vital Signs / Physical Exam
Vital Signs
Vital Signs
Temp Pulse Resp BP Pulse Ox
97.6 F 103 25 111/72 99
02/29/24 07:26 02/29/24 06:02 02/29/24 06:02 02/29/24 06:02 02/29/24 06:02
Physical Exam
Constitutional: No Acute Distress
Cardiovascular: Regular Rate and S1/S2; Negative Murmur or Rub
Pulmonary: Clear and Symmetric; Negative Wheezes or Rales
Gastrointestinal: Soft, Non Tender, Non Distended and Normal Bowel Sounds
Skin: Warm and Dry; Negative Rash or Jaundice
Objective Data
Lab Data
Estimated Creat Clear 108 ml/min 02/28/24 04:23
Lactic Acid Cancelled 02/22/24 23:45
Total Bilirubin 0.2 mg/dl (0.2-1.3) 02/27/24 08:44
AST 10 U/L (14-36) L 02/27/24 08:44
ALT < 10 U/L (0-35) 02/27/24 08:44
Alkaline Phosphatase 81 U/L (38-126) 02/27/24 08:44
C-Reactive Protein 129.80 mg/L (0.0-10.00) H 02/27/24 08:44
Most recent labs reviewed.
Micro Results:
02/22/24 19:45 Blood Culture - Final
Blood/Venous No Growth - Final Report
02/22/24 19:36 Blood Culture - Final
Blood/Venous No Growth - Final Report
02/25/24 15:54 Salmonella/Shigella Culture - Final
Feces/Stool No Salmonella, Shigella, Aeromonas or Plesiomonas species
isolated.
Campylobacter Culture - Final
No Campylobacter species isolated.
Shiga Toxin Test - Final
No E. coli Shiga Toxin 1 or 2 detected.
Stool Leukocytes - Final
02/22/24 23:47 Wound Culture - Final
Skin Surface Enterobacter cloacae#2
Enterobacter cloacae
Enterococcus faecalis
Gram Stain - Final
02/25/24 15:54 Cryptosporidium/Giardia - Final
Feces/Stool Negative for Cryptosporidium and/or Giardia Lamblia
antigens.
C. difficile GDH Antigen & Toxins - Final
Toxigenic C.difficile Positive
02/22/24 20:23 Urine Culture - Final
Urine NO GROWTH
02/23/24 03:23 MRSA Screen - Final
Nose No Methicillin Resistant Staphylococcus aureus isolated.
--- NOTE | 2024-02-29 10:52 | W.PN.UPDATE ---
Update Note
Progress Note Update
Psychiatry follow up. Chart reviewed. Patient is lying in bed. Engages in a very limited way. Denies pain. Denies appetite. Denies needing anything from me. nursing tries to get vancomycin in her system via chocolate milk. Refused blood draw for
depakote level which she is getting IV. Refuses all pills. Condition appears unchanged from yesterday's presentation.
A/P-Schizophrenia and dementia. continue IV depakote for now and try again to draw blood for level. Encourage compliance with oral medications. Psychiatry will follow up.
--- NOTE | 2024-02-29 13:22 | W.PN.HOSP.TC ---
Today's Communication/Plan
-
monitor vitals
see plan
cw vanc
labs and valproic level pending
refusing management at times
Assessment / Plan
Assessment / Plan
53 woman with early dementia and subsequently was referred from local long term for concern of sepsis with decreased oral intake and abnormal labs. CT w/ e/o colitis and C. Diff positive.
CT A/P 02/24/24
IMPRESSION:
1. Concentric abnormal mural thickening of the colon extending from the mid ascending colon through the rectum, findings consistent with acute colitis. Infectious and inflammatory etiologies are the most likely differential considerations. No
signs of abscess formation or drainable collection.
2. Cholelithiasis. No signs of acute gallbladder inflammatory change.
3. Bilateral adrenal thickening likely related to hyperplasia. Additional 1.4 cm low-attenuation left adrenal lesion, most likely benign adenoma.
TTE 02/25/24
CONCLUSIONS
Normal biventricular size and systolic function without regional wall motion
abnormality.
No significant valvular disease.
No prior study available for comparison.
Clinical sepsis 2/2 C. Diff Infection
Acute colitis
-C. Diff positive
-appreciate GI consult
- Initially was refusing PO. We have ordered liquid Vancomycin which is being mixed with apple juice and chocolate milk and patient taking. If she refuses would need dobhoff as she does not have competence. Patient's case management social worker, Colt, will
visit with patient ([phone] ext [phone]) from [facility] in [place]. She reports good rapport with patient. Hopefully can continue to convince her to take meds/obtain labs this a.m. which continues to show downtrending leukocytosis and
C-reactive protein
-GI input and review of CT with minimal intrahepatic biliary dilatation and normal LFTs with low suspicion for obstruction so will obtain MRI as outpatient if patient agreeable.
-GI( signed off ) and ID consults appreciated
Intermittent periods of hypotension
MAP OK and cortisol WNL
-TTE results above, WNL
-continue IVF and bolus as needed
Hyponatremia- hypovolemia related.
-IVF, still poor intake/potassium will be repleted
Hypokalemia -labs pending
Anemia - drop in HH noted - no obvious external bleeding. suspect dilutional. iron panel with good iron stores
-stable
Hypothyroidism -TSH 0.04. She is on thyroid supplements at the high dose. Unclear most TSH. I will decrease the dose and follow TSH. Will try and obtain old information
*patient refusing synthroid
Urine retention
-Postvoid residuals over 450 repeatedly
-Now with indwelling Tyler catheter
-Urology consulted
History of early dementia/dysphagia-patient without agitation. Continue with her home regimen. Patient refusing oral medication.
-appreciate psychiatry consult
patient refusing all medications
Code: Full
Anticipated Discharge: > 48 hours
Subjective/Interval History
-
Date of Service: February 29, 2024
denies pain
Objective Data
-
Vital Signs:
Vital Signs
Temp Pulse Resp BP Pulse Ox
98.3 F 103 25 111/72 99
02/29/24 11:37 02/29/24 06:02 02/29/24 06:02 02/29/24 06:02 02/29/24 06:02
I&O
02/28/24 02/29/24 03/01/24
06:59 06:59 06:59
Intake Total 100 / 100 1490 / 1490
Output Total 275 / 275
Balance 100 / 100 1215 / 1215
[2024-02-29] MEDS: NSS IV (17:44)
[2024-02-29] MEDS: LOVENOX SC (17:44)
[2024-02-29] MEDS: MIRAPEX PO (21:09)
[2024-02-29] MEDS: LIPITOR PO (21:09)
[2024-03-01] VITALS (12 sets, daily range): BP systolic 111–137; BP diastolic 74–89
[2024-03-01] MEDS: DEPACON 55 MG IV ×3 (01:14→23:31)
[2024-03-01] MEDS: NSS 1000 IV ×2 (01:16→12:16)
[2024-03-01] MEDS: FIRVANQ 125 MG PO ×4 (01:16→23:31)
--- NOTE | 2024-03-01 04:40 | PTCARENOTE ---
Patient refused blood draw and hygiene care. Tried to redirect patient, she requested to be left alone and put blanket over her head. Patient requested more blankets.
[2024-03-01] MEDS: FIRVANQ PO (05:00)
[2024-03-01] MEDS: SYNTHROID PO (05:00)
[2024-03-01] MEDS: FLOMAX PO (08:01)
[2024-03-01] MEDS: NEURONTIN PO ×3 (08:01→21:30)
[2024-03-01] MEDS: KCL PO (08:01)
[2024-03-01] MEDS: ARIMIDEX PO (08:01)
[2024-03-01] MEDS: VITAMIN D3 (cholecalciferol) PO (08:02)
[2024-03-01] MEDS: OSCAL CAL 500 PO (08:02)
[2024-03-01] MEDS: ProAmatine PO ×3 (08:02→16:38)
--- NOTE | 2024-03-01 09:16 | W.PN.ID1 ---
Date of Service
Date of Service: March 01, 2024
Today's Communication
- continue oral vancomycin 125 mg PO QID x 10 days of rx through 03/06
- follow up with PCP
Assessment / Plan
# C difficile colitis - improving
# Leukocytosis
- missed single dose of oral vanc thus far today - discussed with RN - she had good success encouraging patient to take it yesterday and will continue attempts today
- medina per urology
- continue oral vancomycin 125 mg PO QID x 10 days of rx through 03/06
- prefer to avoid PPI if possible
- follow up with PCP
# Polypharmacy
# Schizophrenia
# Dementia
- note [employer] [facility], poor oral intake in the setting of fluid restriction
Chief Complaint
-: C-diff
Subjective / Review of Systems
afebrile
bp stable
no labs done yet today
missed single dose of oral vanc thus far today
Vital Signs / Physical Exam
Vital Signs
Vital Signs
Temp Pulse Resp BP Pulse Ox
97.9 F 93 19 111/79 96
03/01/24 03:54 03/01/24 04:00 03/01/24 04:00 03/01/24 04:00 03/01/24 02:17
Physical Exam
Constitutional: No Acute Distress
Cardiovascular: Regular Rate and S1/S2; Negative Murmur or Rub
Pulmonary: Clear and Symmetric; Negative Wheezes or Rales
Gastrointestinal: Soft, Non Tender, Non Distended and Normal Bowel Sounds
Skin: Warm and Dry; Negative Rash or Jaundice
Objective Data
Lab Data
Estimated Creat Clear Cancelled 02/29/24 06:00
Lactic Acid Cancelled 02/22/24 23:45
Total Bilirubin 0.2 mg/dl (0.2-1.3) 02/27/24 08:44
AST 10 U/L (14-36) L 02/27/24 08:44
ALT < 10 U/L (0-35) 02/27/24 08:44
Alkaline Phosphatase 81 U/L (38-126) 02/27/24 08:44
C-Reactive Protein 129.80 mg/L (0.0-10.00) H 02/27/24 08:44
Most recent labs reviewed.
Micro Results:
02/22/24 19:45 Blood Culture - Final
Blood/Venous No Growth - Final Report
02/22/24 19:36 Blood Culture - Final
Blood/Venous No Growth - Final Report
02/25/24 15:54 Salmonella/Shigella Culture - Final
Feces/Stool No Salmonella, Shigella, Aeromonas or Plesiomonas species
isolated.
Campylobacter Culture - Final
No Campylobacter species isolated.
Shiga Toxin Test - Final
No E. coli Shiga Toxin 1 or 2 detected.
Stool Leukocytes - Final
02/22/24 23:47 Wound Culture - Final
Skin Surface Enterobacter cloacae#2
Enterobacter cloacae
Enterococcus faecalis
Gram Stain - Final
02/25/24 15:54 Cryptosporidium/Giardia - Final
Feces/Stool Negative for Cryptosporidium and/or Giardia Lamblia
antigens.
C. difficile GDH Antigen & Toxins - Final
Toxigenic C.difficile Positive
02/22/24 20:23 Urine Culture - Final
Urine NO GROWTH
02/23/24 03:23 MRSA Screen - Final
Nose No Methicillin Resistant Staphylococcus aureus isolated.
Care Review
Plan reviewed with: Nurse (antibiotics)
--- NOTE | 2024-03-01 10:50 | W.PN.UPDATE ---
Update Note
Progress Note Update
Psychiatry follow up. Patient is lying in bed. She is uncooperative with assessment but denies pain or needing anything from me. She continues to get her vancomycin through her drinks and her VPA IV. She refused blood draw for depakote level again
today. She continues to refuse pills. Condition appears unchanged from yesterday's presentation.
A/P-Schizophrenia and dementia. continue IV depakote for now and try again to draw blood for level. Encourage compliance with oral medications. Seems doubtful she was compliant with her medications outside the hospital either given no change in
clinical presentation so far despite not getting any of them. Psychiatry will follow up and continue to monitor.
--- NOTE | 2024-03-01 13:23 | W.PN.HOSP.TC ---
Today's Communication/Plan
-
monitor vitals
see plan
need appointed point of contact to make decisions
Patient continue to refuse management at times
cw PO vanc
Assessment / Plan
Assessment / Plan
53 woman with early dementia and subsequently was referred from local detention for concern of sepsis with decreased oral intake and abnormal labs. CT w/ e/o colitis and C. Diff positive.
CT A/P 02/24/24
IMPRESSION:
1. Concentric abnormal mural thickening of the colon extending from the mid ascending colon through the rectum, findings consistent with acute colitis. Infectious and inflammatory etiologies are the most likely differential considerations. No
signs of abscess formation or drainable collection.
2. Cholelithiasis. No signs of acute gallbladder inflammatory change.
3. Bilateral adrenal thickening likely related to hyperplasia. Additional 1.4 cm low-attenuation left adrenal lesion, most likely benign adenoma.
TTE 02/25/24
CONCLUSIONS
Normal biventricular size and systolic function without regional wall motion
abnormality.
No significant valvular disease.
No prior study available for comparison.
Clinical sepsis 2/2 C. Diff Infection
Acute colitis
-C. Diff positive
-appreciate GI consult
- Initially was refusing PO. We have ordered liquid Vancomycin which is being mixed with apple juice and chocolate milk and patient taking. If she refuses would need dobhoff as she does not have competence. Patient's watch caser, Colt, will
visit with patient ([phone] ext [phone]) from [facility] in [place]. She reports good rapport with patient. Hopefully can continue to convince her to take meds/obtain labs this a.m. which continues to show downtrending leukocytosis and
C-reactive protein
-GI input and review of CT with minimal intrahepatic biliary dilatation and normal LFTs with low suspicion for obstruction so will obtain MRI as outpatient if patient agreeable.
-GI( signed off ) and ID consults appreciated
Intermittent periods of hypotension
MAP OK and cortisol WNL
-TTE results above, WNL
-continue IVF and bolus as needed
Hyponatremia- hypovolemia related.
-IVF, still poor intake/potassium will be repleted
Hypokalemia -labs pending
Anemia - drop in HH noted - no obvious external bleeding. suspect dilutional. iron panel with good iron stores
-stable
Hypothyroidism -TSH 0.04. She is on thyroid supplements at the high dose. Unclear most TSH. I will decrease the dose and follow TSH. Will try and obtain old information
*patient refusing synthroid
Urine retention
-Postvoid residuals high so got medina
-Now with indwelling Medina catheter
-Urology consulted
started flomax but again she is refusing that too
History of early dementia/dysphagia-patient without agitation. Continue with her home regimen. Patient refusing oral medication.
-appreciate psychiatry consult
patient refusing all medications
Code: Full
Asked CM to try to find out regarding POA. would need appointed person to make decisions.
Person listed is Colt Daugherty; called that number but its closed on weekends and no one picking up currently.
General: No Apparent Distress
HEENT: Normocephalic
Respiratory: Clear to Auscultation
Cardiac: Regular Rhythm
GI: Soft, Nontender and Normal Bowel Sounds
Neuro: Awake
Anticipated Discharge: 24 - 48 hours
Subjective/Interval History
-
Date of Service: March 01, 2024
denies pain
Objective Data
-
Vital Signs:
Vital Signs
Temp Pulse Resp BP Pulse Ox
97.9 F 93 19 111/79 96
03/01/24 03:54 03/01/24 04:00 03/01/24 04:00 03/01/24 04:00 03/01/24 02:17
I&O
02/29/24 03/01/2424
06:59 06:59 06:59
Intake Total 1490 / 1490
Output Total 275 / 275 625 / 625
Balance 1215 / 1215 -625 / -625
--- NOTE | 2024-03-01 15:42 | CM ---
Patient from [facility] with Hx Schizophrenia, Dementia with Dx Clinical sepsis 2/2 C. Diff Infection, Acute colitis. Room air. Receiving IV Valproate Na. PT & OT; requires assist of 2, recommend skilled rehab.
Request from Dr Lamb to find out who is POA for patient.
Spoke with ANNEMARIE Whitehead/Osbaldo Meek, [facility] (ph [phone], cell [phone]); request to know who the POA is for this patient. She left message for Zak Sigala, Medication Reconciliation Technician to call [facility] back - left 2 additional
messages on his cell - no callback.
Prior conversation with Jing Armendariz [facility] on 02/26; there is no assigned POA.
Phone call to José Luis Stover, [facility]; left message requesting callback re; request for patient's POA information.
Additional contacts provided by [facility]:
Azeem Cordoba, friend ( [phone]) - phone # not in service
Kain Nieto, friend (ph [phone]) - phone # not in service
Plan follow up with [facility] to determine if patient has POA.
Plan speak with patient about return to [facility].
[2024-03-01] MEDS: LOVENOX SC (16:37)
[2024-03-01] MEDS: MIRAPEX PO (21:30)
[2024-03-01] MEDS: LIPITOR PO (21:30)
[2024-03-02] VITALS (12 sets, daily range): BP systolic 103–126; BP diastolic 73–93
[2024-03-02] MEDS: FIRVANQ 125 MG PO ×3 (06:03→17:48)
[2024-03-02] MEDS: SYNTHROID PO (06:04)
--- NOTE | 2024-03-02 06:22 | PTCARENOTE ---
Patient refused blood draw, refused incontinence care and mouth care. Tyler removed and patient cooperative with incontinence care this morning.
[2024-03-02] MEDS: VITAMIN D3 (cholecalciferol) PO (08:21)
[2024-03-02] MEDS: ARIMIDEX PO (08:21)
[2024-03-02] MEDS: NEURONTIN PO ×3 (08:21→22:38)
[2024-03-02] MEDS: FLOMAX PO (08:21)
[2024-03-02] MEDS: KCL PO (08:21)
[2024-03-02] MEDS: OSCAL CAL 500 PO (08:21)
[2024-03-02] MEDS: ProAmatine PO ×3 (08:21→17:49)
[2024-03-02 08:27] LABS: % Basophils 0.4 % (0-2); % Eosinophils 2.8 % (0-6); % Immature Granulocytes 1.1 % (0-0.5); % Lymphocytes 22.3 % (20.5-51.1); % Monocytes 4.6 % (1.7-9.3); % Neutrophils 68.8 % (42.2-75.2); Absolute Eosinophils 0.2 10^3/uL (0-0.7); Absolute Immature Granulocytes 0.1 10^3/uL (0-0.05); Absolute Lymphocytes 1.3 10^3/uL (1.2-3.4); Absolute Monocytes 0.3 10^3/uL (0.1-0.6); Absolute Neutrophils 3.9 10^3/uL (1.4-6.5); Hemoglobin 8.9 g/dL (12.0-16.0); Mean Corp Hgb Conc. 34.2 g/dL (33.0-37.0); Mean Corpuscular Hgb 28.2 pg (27.0-31.0); Mean Corpuscular Volume 82.3 fL (81.0-99.0); Mean Platelet Volume 9.6 fL (7.4-10.4); Nucleated Red Blood Cells % 0 %; Platelet Count 278 10^3/uL (130-400); Red Blood Cell Count 3.16 10^6/uL (4.20-5.40); White Blood Cell Count 5.7 10^3/uL (4.8-10.8)
--- NOTE | 2024-03-02 09:00 | PTCARENOTE ---
Patient received from date night caregiver. Patient AAOx2, forgets location. VSS. No events noted over night. No complaints of pain but some complaints of nausea. Explained antinausea medication and patient refused since it is IM. QTc is prolonged,
unable to give other options. Patient continues to refuse medications, will keep attempting throughout the day. Jayson removed, DTV by 1200. Call garzon in reach.
[2024-03-02 09:26] LABS: Blood Urea Nitrogen < 2 mg/dl (7-17); Calcium 7.3 mg/dl (8.4-10.2); Carbon Dioxide 22 mmol/L (22-30); Chloride 107 mmol/L (98-107); Estimated Creatinine Clearance 108 ml/min; Glucose 56 mg/dl (70-99); Potassium 2.9 mmol/L (3.5-5.1); Sodium 132 mmol/L (135-145); eGFR > 60.00
--- NOTE | 2024-03-02 09:28 | CM ---
Addendum entered by Natividad Barahona RN 03/02/24 15:04:
Psych notes 03/02: Pt appears to lack capacity for disposition or treatment decisions, primarily due to dementia, as well as residual psychotic illness.
Spoke with Teodora [employer] Detail Draftsperson about diet restrictions related to On Site Visit tomorrow by her care facility, agreed may be helpful if diet can be liberalized. Message to Chetna URIARTE - diet updated to regular. Per Dr Delaney: Added addendum to
her diet order that it�s ok to eat thai food brought in by facility people.
Met with patient who made some statements that were clear and other comments indicating confusion. She asked for her mother (who was reported by care facility as ). CM asked her to consider eating, taking her medications and walking with
PT/OT so she could possibly be able to leave the hospital soon and return to [facility]. She responded saying she did not live there anymore and then mumbled incoherently. CM informed her that Young from [facility] would be visiting her tomorrow and
bringing her some food that she liked, possibly British Food. She then sat up and smiled and said British Food!
Spoke with Young, Director [facility] [phone]; informed him patient was now on a regular diet and he can bring food for patient tomorrow - he plans on bringing British food for her. He will evaluate the patient to see if her
mental status appears to be at her baseline and to see if he can motivate her to cooperate more with her meds, eating and PT/OT. He says that the way they work with her is just to hand her the medications and she will take them (don't ask her if
she wants them).
Spoke with nurse Harry; patient told him that she has a sister she tried to call today that helps with decisions. Emelyn - [phone].
CM called that # twice- rapid busy signal, then message # not in service.
Plan CM to meet with Young, Director [facility] tomorrow at 11am.
Original Note:
Patient from [facility] with Hx Schizophrenia, Dementia with Dx Clinical sepsis 2/2 C. Diff Infection, Acute colitis. Room air. Receiving IV Valproate Na. Still declining PO meds, oral intake. Seen by Psych. PT & OT 02/28; requires assist of
2, recommend skilled rehab, not willing to participate much.
Spoke with Federico, Director & Alexandra Sawyer, Car Hiker, [facility] (ph [phone], *cell [phone]); the patient has been with them since 2008 and their specific location since 2018. They saw patient at [facility]
twice and the conditions were concerning, HV reported to them that she was uncooperative for PT after she arrived in December and they wanted to discharge her, then they could not get any further communication from [facility]. [facility] had a concern
for UTI and she has ongoing bilateral knee pain from DJD for years. Only family contact was an uncle who's phone no longer working, no POA, legal guardian. Colt has been out of office from Saturday and will be back tomorrow. Alexandra is available
today & tomorrow and then will be off. Federico is available going forward. She has been to [facility] before and they said they would consider her again. She has not had a Psych Inpatient Stay in the last 2 years. They cannot take her back
unless she is ambulating again with her RW. They do not have nurses on site. The patient needed assistance with ambulation before leaving [facility].
Information above conveyed to Fady Delaney & Darwin.
Plan TBD.
--- NOTE | 2024-03-02 10:42 | W.PN.HOSP.TC ---
Today's Communication/Plan
-
Obtain an abdominal x-ray
Continue with p.o. vancomycin
Continue to encourage oral intake
Try and find out mom's contact details
Assessment / Plan
Assessment / Plan
53 woman with early dementia and subsequently was referred from local retirement for concern of sepsis with decreased oral intake and abnormal labs. CT w/ e/o colitis and C. Diff positive.
CT A/P 02/24/24
IMPRESSION:
1. Concentric abnormal mural thickening of the colon extending from the mid ascending colon through the rectum, findings consistent with acute colitis. Infectious and inflammatory etiologies are the most likely differential considerations. No
signs of abscess formation or drainable collection.
2. Cholelithiasis. No signs of acute gallbladder inflammatory change.
3. Bilateral adrenal thickening likely related to hyperplasia. Additional 1.4 cm low-attenuation left adrenal lesion, most likely benign adenoma.
TTE 02/25/24
CONCLUSIONS
Normal biventricular size and systolic function without regional wall motion
abnormality.
No significant valvular disease.
No prior study available for comparison.
Clinical sepsis 2/2 C. Diff Infection
Acute colitis
-C. Diff positive
-Initially was refusing PO. We have ordered liquid Vancomycin which is being mixed with apple juice and chocolate milk and patient taking. If she refuses would need dobhoff as she does not have competence. Patient's case making machine operator, Colt, will
visit with patient ([phone] ext [phone]) from [facility] in [place]. She reports good rapport with patient.
-Improving leukocytosis
-GI input and review of CT with minimal intrahepatic biliary dilatation and normal LFTs with low suspicion for obstruction so will obtain MRI as outpatient if patient agreeable.
-GI( signed off ) and ID consults appreciated
-Patient still with poor oral intake. Repeat abdominal x-ray to rule out any ileus.
Hypokalemia -replete
Anemia - drop in HH noted - no obvious external bleeding. suspect dilutional. iron panel with good iron stores
-stable
Hypothyroidism -TSH 0.04. She is on thyroid supplements at the high dose. Unclear most TSH. I will decrease the dose and follow TSH. Will try and obtain old information
*patient refusing synthroid
Urine retention
-Postvoid residuals high so got medina
-Now with indwelling Medina catheter
-Urology consulted
started flomax but again she is refusing that too
History of early dementia/dysphagia-patient without agitation. Continue with her home regimen. Patient refusing oral medication.
-appreciate psychiatry consult
patient refusing all medications
Code: Full
Discussed with psychiatry about competency-is going to evaluate medicine.
Discussed with case management
Anticipated Discharge: 24 - 48 hours
Subjective/Interval History
-
Date of Service: March 02, 2024
Patient is alert and oriented to self. She does not know the name of the hospital style. She does not know the month of the year not the date.
She did not have much to eat yesterday and she has not touched her breakfast today. She states she is feels nauseous. When asked about abdominal pain she says yes and points to periumbilical area. She had 3 loose bowel movements today.
She is taking vancomycin but not other medication. She is aware that she has an infection in her abdomen. She does not think she needs to be on other medications that is why she is refusing.
She does not know how she got into rehab and who signed her into rehab.
Objective Data
-
Labs:
Laboratory Results
03/02/24
08:14
WBC 5.7
Hgb 8.9 L
Hct 26.0 L
Plt Count 278
Sodium 132 L
Potassium 2.9 L
Chloride 107
Carbon Dioxide 22
BUN < 2 L
Creatinine 0.2 L
Glucose 56 L
Calcium 7.3 L
Vital Signs:
Vital Signs
Temp Pulse Resp BP Pulse Ox
98.2 F 101 32 126/93 96
03/02/24 07:58 03/02/24 06:00 03/02/24 06:00 03/02/24 06:00 03/01/24 02:17
I&O
03/01/24 03/02/24 03/03/24
06:59 06:59 06:59
Intake Total 50 / 50
Output Total 625 / 625
Balance -625 / -625 50 / 50
Review of Systems
-
Unable to obtain full review of systems at this time due to: Other (Due to cognitive impairment)
Physical Exam
-
General: No Apparent Distress
HEENT: Moist Mucous Membranes
Respiratory: Clear to Auscultation (anteriorly)
Cardiac: Regular Rhythm and S1/S2
GI: Soft, Tender (discomfort in general but no rebound or guarding) and Distended (? mild)
Neuro: Awake, Alert and Oriented (self)
Psych: Calm and Confused; Negative Agitated
Data Reviewed
-
Labs: Labs Reviewed by me
--- NOTE | 2024-03-02 11:03 | W.PN.ID1 ---
Date of Service
Date of Service: March 02, 2024
Today's Communication
- missed single dose of oral vanc thus far since 02/25
- continue oral vancomycin 125 mg PO QID x 10 days of rx through 03/06
- prefer to avoid PPI if possible
- follow up AXR
- follow up with PCP
Assessment / Plan
# C difficile colitis - improving
# Leukocytosis
- missed single dose of oral vanc thus far since 02/25
- continue oral vancomycin 125 mg PO QID x 10 days of rx through 03/06
- prefer to avoid PPI if possible
- follow up AXR
- follow up with PCP
# Polypharmacy
# Schizophrenia
# Dementia
- note [employer] OWNER ambulatory dysfunction recorded at [facility], poor oral intake in the setting of fluid restriction
Chief Complaint
-: C-diff
Subjective / Review of Systems
afebrile
bp stable
without leukocytosis
cr 0.2
complaining of nausea today
Vital Signs / Physical Exam
Vital Signs
Vital Signs
Temp Pulse Resp BP Pulse Ox
98.2 F 101 32 126/93 95
03/02/24 07:58 03/02/24 06:00 03/02/24 06:00 03/02/24 06:00 03/02/24 10:43
Physical Exam
Constitutional: No Acute Distress
Cardiovascular: Regular Rate and S1/S2; Negative Murmur or Rub
Pulmonary: Symmetric
Gastrointestinal: Soft, Non Tender and Non Distended
Skin: Warm and Dry; Negative Rash or Jaundice
Neurological: Awake
Objective Data
Lab Data
Lab Results
03/02/24 08:14
03/02/24 08:14
Estimated Creat Clear 108 ml/min 03/02/24 08:14
Lactic Acid Cancelled 02/22/24 23:45
Total Bilirubin 0.2 mg/dl (0.2-1.3) 02/27/24 08:44
AST 10 U/L (14-36) L 02/27/24 08:44
ALT < 10 U/L (0-35) 02/27/24 08:44
Alkaline Phosphatase 81 U/L (38-126) 02/27/24 08:44
C-Reactive Protein 129.80 mg/L (0.0-10.00) H 02/27/24 08:44
Most recent labs reviewed.
Micro Results:
02/22/24 19:45 Blood Culture - Final
Blood/Venous No Growth - Final Report
02/22/24 19:36 Blood Culture - Final
Blood/Venous No Growth - Final Report
02/25/24 15:54 Salmonella/Shigella Culture - Final
Feces/Stool No Salmonella, Shigella, Aeromonas or Plesiomonas species
isolated.
Campylobacter Culture - Final
No Campylobacter species isolated.
Shiga Toxin Test - Final
No E. coli Shiga Toxin 1 or 2 detected.
Stool Leukocytes - Final
02/22/24 23:47 Wound Culture - Final
Skin Surface Enterobacter cloacae#2
Enterobacter cloacae
Enterococcus faecalis
Gram Stain - Final
02/25/24 15:54 Cryptosporidium/Giardia - Final
Feces/Stool Negative for Cryptosporidium and/or Giardia Lamblia
antigens.
C. difficile GDH Antigen & Toxins - Final
Toxigenic C.difficile Positive
02/22/24 20:23 Urine Culture - Final
Urine NO GROWTH
02/23/24 03:23 MRSA Screen - Final
Nose No Methicillin Resistant Staphylococcus aureus isolated.
Care Review
Plan reviewed with: Physician (Dr Rhett ferreira)
--- NOTE | 2024-03-02 11:14 | CM ---
Called placed to [facility], spoke with Federico Pierce, regional climate change analyst([phone]). Per Federico, patient at baseline does not like to bath and is uncooperative with showering, only showers a few times a week. He states she also normally does
not cooperate with physical therapy and does not like to walk, but states it is not that she can not walk. He stated she does not like to walk due to pain in her knees, she does have braces that she refuses to wear. He stated that she does like
[employer] and other fast foods that sometimes they cut up in small pieces to cajole her to take her medication or ambulate short distances. He stated that she was able to make decisions for herself while she was there. I made him aware that
currently here she is refusing to eat and is refusing most of her medications. as well as refusing to participate with PT. He stated that he would come visit with her tomorrow around 11am, to try to coax her to begin to cooperate with eating, and
taking medications. He said he would like to bring her some of her favorite foods tomorrow. I made him aware that she is on a low residue diet here. I told him we will check with Dietary regarding if she can have fast foods and if so what type, and
the CM would get back to him.
Per Federico she has no legal guardian or POA. She has a rep payee, who manages her finances. Her Mother has passed, and had two friends who were her contacts but believes they are no longer involved and we are unable to reach with the phone numbers
that we were given. He stated she has been in their facilities since 2008, and has been in the [place] location since 2019. Federico to come to visit at 11am tomorrow to visit with patient and CM. Update to CM.
--- NOTE | 2024-03-02 12:00 | PTCARENOTE ---
Patient due to void. Attempted to bladder scan, patient refused. Attempted several times stating why it needed to be done and patient continue to refuse. Will attempt again later.
[2024-03-02] MEDS: KCL 270 MEQ IV (12:04)
[2024-03-02] MEDS: DEPACON 55 MG IV ×2 (12:04→23:41)
[2024-03-02] MEDS: TIGAN IM (12:05)
--- NOTE | 2024-03-02 14:05 | W.PN.UPDATE ---
Update Note
Progress Note Update
Pt seen, lying in bed, resting initially with blanket over her head. Pt alert, makes eye contact, continues to be a very poor historian. Pt calm, with no overt signs of active psychosis. Pt is not able to answer orientation questions or show a
grasp of her current medical or disposition needs/situation. Pt states she can stay 'with mom,' although Dinkey Engineer reports pt's mother is . Pt noted residing at [facility] since 2008, present location since 2018. Pt has rep-payee, but no
guardian or POA. Here, pt is refusing all po medications, not eating. Pt states only that her medications are 'not right.' She has multiple cups of liquids on 2 trays, and snacks not consumed. Reviewed Case Mgt Director note; [facility] director
to visit and encourage pt to eat and take medications, with food she likes.
Imp: Schizophrenia, residual, by history, currently appears fairly stable, although off antipsychotic meds since refusing, taking only IV Depakene. Clozapine level on 02/24 came back very elevated due to high dose
Dementia by history, c/w presentation
Pt appears to lack capacity for disposition or treatment decisions, primarily due to dementia, as well as residual psychotic illness
Rec: Continue to encourage compliance with psych meds- currently Abilify, Depakote (currently IV). Will stop Cogentin- not indicated since Haldol was stopped.
will check Depakene level. Will continue to follow
[2024-03-02] MEDS: LOVENOX 40 MG SC (17:47)
[2024-03-02] MEDS: ANESTHETIC LOZENGE 1 LOZENGE PO (22:21)
--- NOTE | 2024-03-02 22:32 | PTCARENOTE ---
Pt resting comfortably in bed. Found pt to be incontinent of lg amount of liquid, mucoid stool. Upon attempting to clean pt, pt frequently said she did not want to be cleaned bc she did not want to be cold. This RN placed warm blankets over pt and
pt was agreeable to being turned and cleaned briefly. Pt c/o sore throat which this RN reached out to CHAPITO Stover about. SENIOR ONLINE MARKETING MANAGER placed order for lozenges, see MAR. Pt first said 'later' when asked to take lozenge, but then opened mouth for this RN to
place lozenge in. SR on monitor, unable/unwilling to answer orientation questions. VSS as documented.
[2024-03-02] MEDS: MIRAPEX PO (22:38)
[2024-03-02] MEDS: LIPITOR PO (22:38)
[2024-03-03] VITALS (13 sets, daily range): BP systolic 98–143; BP diastolic 65–100; PULSE 107
[2024-03-03] MEDS: FIRVANQ PO ×2 (00:38→06:41)
--- NOTE | 2024-03-03 00:39 | PTCARENOTE ---
This RN made several attempts to administer Firvanq, pt responded 'get away from me'. Documented pt refusal in NOV.
--- NOTE | 2024-03-03 03:43 | PTCARENOTE ---
Pt refused bladder scans throughout the night.
[2024-03-03] MEDS: SYNTHROID PO (06:41)
--- NOTE | 2024-03-03 09:03 | VATNOTE ---
Pt's R arm midline is working fine and has +BR; however, R arm noted to be quite swollen. Original upper arm circumference was 37cm, now it is 41cm. Tigertext sent to . Will continue to monitor.
[2024-03-03 09:17] LABS: Blood Urea Nitrogen < 2 mg/dl (7-17); Calcium 7.7 mg/dl (8.4-10.2); Carbon Dioxide 26 mmol/L (22-30); Chloride 103 mmol/L (98-107); Estimated Creatinine Clearance 108 ml/min; Glucose 51 mg/dl (70-99); Sodium 131 mmol/L (135-145); eGFR > 60.00
[2024-03-03 09:18] LABS: Depakane 38.8 ug/ml (50.0-120.0)
--- NOTE | 2024-03-03 09:42 | W.PN.ID1 ---
Date of Service
Date of Service: March 03, 2024
Today's Communication
- would continue to encourage patient to take medication she has generally been compliant when medicine is presented in juice
- she is refusing other pills, doubt we would be more successful with fidaxomicin
- continue oral vancomycin 125 mg PO QID x 10 days of rx through 03/06
- follow up with pcp
- ID service will no longer actively follow this patient please recall for further questions
Assessment / Plan
# C difficile colitis - improving
# Leukocytosis
- would continue to encourage patient to take medication she has generally been compliant when medicine is presented in juice
- she is refusing other pills, doubt we would be more successful with fidaxomicin
- continue oral vancomycin 125 mg PO QID x 10 days of rx through 03/06
- hypoglycemia/diet per IM service
- follow up with pcp
# Schizophrenia
# Dementia
- note DOCTOR OF MEDICINE ambulatory dysfunction recorded at located within [facility], poor oral intake in the setting of fluid restriction
Chief Complaint
-: C-diff
Subjective / Review of Systems
afebrile
bp stable
no cbc today
axr mild ileus
hypoglycemia today
day shift RN reports she has been successful in encouraging shahbaz to take meds
Vital Signs / Physical Exam
Vital Signs
Vital Signs
Temp Pulse Resp BP Pulse Ox
98.1 F 101 16 108/79 97
03/03/24 07:25 03/03/24 06:00 03/03/24 06:00 03/03/24 06:00 03/02/24 21:13
Physical Exam
Constitutional: No Acute Distress
Cardiovascular: Regular Rate and S1/S2; Negative Murmur or Rub
Pulmonary: Clear and Symmetric; Negative Wheezes or Rales
Gastrointestinal: Soft, Non Tender, Non Distended and Normal Bowel Sounds
Skin: Warm and Dry; Negative Rash or Jaundice
Objective Data
Lab Data
Lab Results
03/02/24 08:14
03/03/24 08:49
Estimated Creat Clear 108 ml/min 03/03/24 08:49
Lactic Acid Cancelled 02/22/24 23:45
Total Bilirubin 0.2 mg/dl (0.2-1.3) 02/27/24 08:44
AST 10 U/L (14-36) L 02/27/24 08:44
ALT < 10 U/L (0-35) 02/27/24 08:44
Alkaline Phosphatase 81 U/L (38-126) 02/27/24 08:44
C-Reactive Protein 129.80 mg/L (0.0-10.00) H 02/27/24 08:44
Most recent labs reviewed.
Micro Results:
02/22/24 19:45 Blood Culture - Final
Blood/Venous No Growth - Final Report
02/22/24 19:36 Blood Culture - Final
Blood/Venous No Growth - Final Report
02/25/24 15:54 Salmonella/Shigella Culture - Final
Feces/Stool No Salmonella, Shigella, Aeromonas or Plesiomonas species
isolated.
Campylobacter Culture - Final
No Campylobacter species isolated.
Shiga Toxin Test - Final
No E. coli Shiga Toxin 1 or 2 detected.
Stool Leukocytes - Final
02/22/24 23:47 Wound Culture - Final
Skin Surface Enterobacter cloacae#2
Enterobacter cloacae
Enterococcus faecalis
Gram Stain - Final
02/25/24 15:54 Cryptosporidium/Giardia - Final
Feces/Stool Negative for Cryptosporidium and/or Giardia Lamblia
antigens.
C. difficile GDH Antigen & Toxins - Final
Toxigenic C.difficile Positive
02/22/24 20:23 Urine Culture - Final
Urine NO GROWTH
06/16/24 03:23 MRSA Screen - Final
Nose No Methicillin Resistant Staphylococcus aureus isolated.
[2024-03-03] MEDS: GlucaGen 1 MG IM (09:51)
[2024-03-03 10:00] LABS: Glucose - Point of Care 55 mg/dl (70-99)
[2024-03-03] MEDS: KCL PO (10:12)
[2024-03-03] MEDS: ARIMIDEX PO (10:12)
[2024-03-03] MEDS: OSCAL CAL 500 PO (10:12)
[2024-03-03] MEDS: FLOMAX PO (10:12)
[2024-03-03] MEDS: ProAmatine PO ×2 (10:12→18:01)
[2024-03-03] MEDS: NEURONTIN PO ×3 (10:12→21:07)
[2024-03-03] MEDS: VITAMIN D3 (cholecalciferol) PO (10:13)
[2024-03-03 10:29] LABS: Glucose - Point of Care 90 mg/dl (70-99)
--- NOTE | 2024-03-03 10:46 | PTCARENOTE ---
Rec'd pt this AM. refused all PO meds. took Vanco with juice only. refused all others. Allowed AM hygiene care with much encouragement. incontinent of large amt of liquid stool and urine. Blood gllucose on AM labs low. Pt drank 4oz of juice, sugar
remained low, refused additional juice. IM glucagon given as ordered. sugar improved. Pt refused to eat breakfast. Took one bite of pancake with much encouragement but spit it out. Notiified Dr. Delaney of all the AM issues. orderd rec'd. Pt vital
signs stable. resting comfortably.
--- NOTE | 2024-03-03 11:19 | W.PN.HOSP.TC ---
Today's Communication/Plan
-
Repeat potassium.
Start on IV fluids.
Start working on guardianship.
Assessment / Plan
Assessment / Plan
53 woman with early dementia and subsequently [facility] concern of [facility] with decreased oral intake and abnormal labs. CT w/ e/o colitis and C. Diff positive.
Clinical sepsis 2/2 C. Diff Infection
Acute colitis
-C. Diff positive
- normalized leukocytosis; patient taking p.o. vancomycin
-GI input and review of CT with minimal intrahepatic biliary dilatation and normal LFTs with low suspicion for obstruction so will obtain MRI as outpatient if patient agreeable.
-GI( signed off ) and ID consults appreciated
Hypokalemia -replete
hyponatremia-check urine lites. With poor oral intake suspect possible hypohypovolemia related. Also patient not taking her Synthroid which could be playing a role. Check TSH.
Hyperglycemia-IM glucagon given. Patient did take some orange juice. Continue to follow. Suspect secondary to poor oral intake. Started on IV fluid with dextrose.
Anemia - drop in HH noted - no obvious external bleeding. suspect dilutional. iron panel with good iron stores
-stable
Hypothyroidism -TSH 0.04. She is on thyroid supplements at the high dose. Unclear most TSH. Decrease the dose of Synthroid but patient is refusing Synthroid medication..
*patient refusing synthroid
Urine retention
-Postvoid residuals high so got medina
-Now with indwelling Medina catheter
-Urology consulted
started flomax but again she is refusing that too
History of early dementia/dysphagia-patient without agitation. Continue with her home regimen. Patient refusing oral medication.
-appreciate psychiatry consult
patient refusing all medications
Patient deemed not competent to make medical decision. See psychiatrist input.
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 Patient is refusing oral medication and patient oral diet. Continue to encourage oral intake. Start on IV fluids with dextrose. Need to work on guardianship.
Code: Full
Total time spent on today's encounter was 52 minutes which included time spent in counseling the patient/family regarding diagnosis and treatment plan as listed above, goals of care, and symptom management. Case was discussed with nursing staff,
specialists, and care coordinators/case management. All labs and imaging personally reviewed by me. Remainder the time spent in detailed review of previous records, lab data, imaging, and other medical provider documentation.
Anticipated Discharge: > 48 hours
Subjective/Interval History
-
Date of Service: March 03, 2024
Patient still refusing all her medications but was able to take p.o. vancomycin.
She is having poor oral intake.
On questioning regarding her oral intake she states she feels nauseous. But no obvious vomiting noted. Still ongoing loose stools.
Her blood sugar was low this morning and patient did not allow to give orange juice initially but after much persuasion she did take orange juice.
Objective Data
-
Labs:
Laboratory Results
03/03/24
08:49
Sodium 131 L
Potassium 3.0 L
Chloride 103
Carbon Dioxide 26
BUN < 2 L
Creatinine 0.2 L
Glucose 51 L*
Calcium 7.7 L
Vital Signs:
Vital Signs
Temp Pulse Resp BP Pulse Ox
98.1 F 101 16 108/79 97
03/03/24 07:25 03/03/24 06:00 03/03/24 06:00 03/03/24 06:00 03/02/24 21:13
I&O
03/02/24 03/03/24 03/04/24
06:59 06:59 06:59
Intake Total 50 / 50
Balance 50 / 50
Review of Systems
-
Unable to obtain full review of systems at this time due to: Other ( Difficult that she is not forthcoming with conversation today)
Physical Exam
-
General: No Apparent Distress
HEENT: Moist Mucous Membranes
Respiratory: Clear to Auscultation ( anteriorly)
Cardiac: Regular Rhythm and S1/S2
GI: Soft, Nontender, Nondistended and Normal Bowel Sounds
Neuro: Awake and Alert; Negative No Motor Deficits ( on gross exam)
Psych: Calm
Data Reviewed
-
Labs: Labs Reviewed by me
--- NOTE | 2024-03-03 11:38 | W.PN.UPDATE ---
Update Note
Progress Note Update
Pt seen, resting in bed, alert, making eye contact. Poverty of thought/limited speech output. Still not eating, not taking po meds, except po antibiotic, and OJ when blood sugar low with much persuasion. Still refusing all other po meds. VPA
level 38.8 today, continues receiving IV Depakene as only psychotropic med here. Pt able to state the plan of bringing in take-out food. Insight and judgement remain poor. No overt signs of active psychosis.
Imp: Schizophrenia, residual, by history, currently appears fairly stable, although off antipsychotic meds since refusing, taking only IV Depakene. VPA level increasing but still below ideal range
Dementia by history, c/w presentation
Pt appears to lack capacity for disposition or treatment decisions, primarily due to dementia, as well as residual psychotic illness
Rec: Continue to encourage compliance with psych meds- currently Abilify, Depakote (IV Depakene). Would continue current dose of Depakene, since pt appears stable in mood, and
level will likely continue to rise. Psychiatry will follow
[2024-03-03] MEDS: KCL 270 MEQ IV (12:47)
[2024-03-03] MEDS: FIRVANQ 125 MG PO ×3 (12:47→23:25)
[2024-03-03] MEDS: KCL ELIXIR 40 MEQ PO (12:49)
[2024-03-03] MEDS: DEPACON 55 MG IV ×2 (12:49→23:24)
[2024-03-03] MEDS: ProAmatine 5 MG PO (12:50)
[2024-03-03] MEDS: D5/0.45%NSS with KCL 20 MEQ 1000 IV (12:51)
--- NOTE | 2024-03-03 14:05 | PTCARENOTE ---
director of pt's penitentiary came to visit and brought her [place] food. Pt OOB with 4 PT/OT staff, very weak, required pulling over with back board to get back to bed. refused to eat lunch again. Drank PO Potassium with apple juice and vanco in
apple juice with much encouragement.
--- NOTE | 2024-03-03 14:18 | CM ---
CM met with [facility] Director/Federico bedside with pt
Nursing and therapy also involved and bedside
Federico brought [employer] food to entice pt to eat- minimally interested, noting she was not hungry
With Federico's encouragement, pt was out of bed to chair- per nursing, 4 person assist for transfer
Pt will need be independent with an AD in order to return back to [facility] ( needs to be able to evacuate independently)
nursing home hopeful for a rehab closer to the [facility]
Federico aware if pt denied at local SNFs, plan for return back to [facility]
Federico notes goal if for return to halfway upon rehab discharge
PASRR completed with his assistance
Referrals faxed via [facility] to several SNFs in the [facility]
Physician note indicates guardianship needs to be pursued as pt lacks decisional capacity per psych
Message left with [facility] requesting call back- they will need to arrange for guardianship
CM Director/Georgie Collins updated
Discharge Disposition- return to [facility] SNF vs SNF in [facility]
[2024-03-03] MEDS: LOVENOX 80 MG SC (17:45)
--- NOTE | 2024-03-03 18:25 | PTCARENOTE ---
Pt remains with very poor appetite. Refused to eat any food today. Agreed to small amount of apple juice with her oral vanco but refused PO pills. vital signs stable. Inc of bladder and bowel
[2024-03-03] MEDS: MIRAPEX PO (21:07)
[2024-03-03] MEDS: LIPITOR PO (21:07)
[2024-03-04] VITALS (11 sets, daily range): BP systolic 102–139; BP diastolic 80–89
--- NOTE | 2024-03-04 02:35 | PTCARENOTE ---
assumed care of patient, pt sleeping with sheet over head. VSS- allowed this RN to assess her. pt incontinent of mucoid stool- full bed bath given. pt was eating some fruit. pt drank PO vanco with apple juice without issues. pt has been incontinent
of urine too. pt has been cooperative so far during shift but patient needs much encouragement. care ongoing.
[2024-03-04] MEDS: D5/0.45%NSS with KCL 20 MEQ 1000 IV ×2 (04:28→15:15)
[2024-03-04] MEDS: SYNTHROID PO (05:04)
[2024-03-04] MEDS: LOVENOX 80 MG SC ×2 (05:04→17:20)
[2024-03-04] MEDS: FIRVANQ 125 MG PO ×3 (05:04→17:20)
[2024-03-04 05:31] LABS: Blood Urea Nitrogen < 2 mg/dl (7-17); Calcium 7.7 mg/dl (8.4-10.2); Carbon Dioxide 26 mmol/L (22-30); Chloride 104 mmol/L (98-107); Estimated Creatinine Clearance 108 ml/min; Glucose 106 mg/dl (70-99); Magnesium 1.6 mg/dl (1.6-2.3); Potassium 3.6 mmol/L (3.5-5.1); Sodium 130 mmol/L (135-145); eGFR > 60.00
[2024-03-04 05:35] LABS: Hematocrit 29.7 % (37.0-47.0); Hemoglobin 10.2 g/dL (12.0-16.0); Mean Corp Hgb Conc. 34.3 g/dL (33.0-37.0); Mean Corpuscular Hgb 27.9 pg (27.0-31.0); Mean Corpuscular Volume 81.1 fL (81.0-99.0); Platelet Count 273 10^3/uL (130-400); Red Blood Cell Count 3.66 10^6/uL (4.20-5.40); Red Cell Dist. Width 15.6 % (11.5-14.5); White Blood Cell Count 5.1 10^3/uL (4.8-10.8)
[2024-03-04 06:02] LABS: TSH 4.96 uIU/ml (0.47-4.68)
--- NOTE | 2024-03-04 08:53 | W.PN.ID1 ---
Date of Service
Date of Service: March 04, 2024
Today's Communication
ID service will no longer actively follow this patient please recall for further questions
Assessment / Plan
# C difficile colitis
- would continue to encourage patient to take medication she has generally been compliant when medicine is presented in juice
- she is refusing other pills, doubt we would be more successful with fidaxomicin
- continue oral vancomycin 125 mg PO QID x 10 days of rx through 03/06
- hypoglycemia/diet per IM service
- follow up with pcp; ID service will no longer actively follow this patient please recall for further questions
# Schizophrenia
# Dementia
- note BOWLING OR SKATING FRONT DESK CLERK ambulatory dysfunction recorded at [facility], poor oral intake in the setting of fluid restriction
Chief Complaint
-: C-diff
Subjective / Review of Systems
afebrile
bp stable
without leukocytosis
taking meds with encouragement
hiding under her blankets this am. continues to respond yes and no appropriately with 'lenore almonte'
Vital Signs / Physical Exam
Vital Signs
Vital Signs
Temp Pulse Resp BP Pulse Ox
97.5 F 94 18 116/86 96
03/04/24 07:56 03/04/24 06:00 03/04/24 06:00 03/04/24 06:00 03/03/24 20:48
Physical Exam
Constitutional: No Acute Distress
Cardiovascular: Regular Rate
Pulmonary: Non Labored
Gastrointestinal: Soft, Non Tender and Non Distended
Skin: Warm and Dry; Negative Rash or Jaundice
Neurological: Awake
Objective Data
Lab Data
Lab Results
03/04/24 05:12
03/04/24 05:12
Estimated Creat Clear 108 ml/min 03/04/24 05:12
Lactic Acid Cancelled 02/22/24 23:45
Total Bilirubin 0.2 mg/dl (0.2-1.3) 02/27/24 08:44
AST 10 U/L (14-36) L 02/27/24 08:44
ALT < 10 U/L (0-35) 02/27/24 08:44
Alkaline Phosphatase 81 U/L (38-126) 02/27/24 08:44
C-Reactive Protein 129.80 mg/L (0.0-10.00) H 02/27/24 08:44
Most recent labs reviewed.
Micro Results:
02/22/24 19:45 Blood Culture - Final
Blood/Venous No Growth - Final Report
02/22/24 19:36 Blood Culture - Final
Blood/Venous No Growth - Final Report
02/25/24 15:54 Salmonella/Shigella Culture - Final
Feces/Stool No Salmonella, Shigella, Aeromonas or Plesiomonas species
isolated.
Campylobacter Culture - Final
No Campylobacter species isolated.
Shiga Toxin Test - Final
No E. coli Shiga Toxin 1 or 2 detected.
Stool Leukocytes - Final
02/22/24 23:47 Wound Culture - Final
Skin Surface Enterobacter cloacae#2
Enterobacter cloacae
Enterococcus faecalis
Gram Stain - Final
02/25/24 15:54 Cryptosporidium/Giardia - Final
Feces/Stool Negative for Cryptosporidium and/or Giardia Lamblia
antigens.
C. difficile GDH Antigen & Toxins - Final
Toxigenic C.difficile Positive
02/22/24 20:23 Urine Culture - Final
Urine NO GROWTH
02/23/24 03:23 MRSA Screen - Final
Nose No Methicillin Resistant Staphylococcus aureus isolated.
[2024-03-04] MEDS: FLOMAX PO (09:05)
[2024-03-04] MEDS: ARIMIDEX PO (09:05)
[2024-03-04] MEDS: OSCAL CAL 500 PO (09:06)
[2024-03-04] MEDS: KCL PO (09:06)
[2024-03-04] MEDS: ProAmatine PO ×3 (09:06→17:29)
[2024-03-04] MEDS: NEURONTIN PO ×3 (09:06→21:25)
[2024-03-04] MEDS: VITAMIN D3 (cholecalciferol) PO (09:07)
--- NOTE | 2024-03-04 09:08 | PTCARENOTE ---
Rec'd pt this AM. Continues to refuse PO meds and meals. Will only take small amounts of juice. Dr. Delaney aware
--- NOTE | 2024-03-04 10:17 | CM ---
Addendum entered by Natividad Barahona RN 03/04/24 10:53:
Message from Marci, [facility] & [facility]; [facility] does not have any parts counterman care beds.
Original Note:
Patient from [facility] with Hx Schizophrenia, Dementia with Dx Clinical sepsis 2/2 C. Diff Infection, Acute colitis. Room air. Receiving IV Valproate Na. Still declining PO meds, oral intake. Psych following.
OT 03/03; requires assist of 2, max assist grooming, dependent toileting, recommend skilled rehab,
PT 03/03; requires assist of 2, max assist for transfers, recommend skilled rehab.
Spoke with nurse Charley; patient is not eating and not taking PO meds today. She will only take meds in liquid form mixed with other liquids. She allowed labs to be drawn.
Spoke with Young, Director [facility] (ph [phone]. [place] cell [phone]); he was here yesterday for On-Site Visit and sympathized with difficulties of care for patient at this time - he said she is requiring too much
assist with her mobility. They do not have a ramp at [facility] and therefore she would not be safe there as in an emergency they could not safely get her out of the building. He was able to get her to take 4-5 bites of the [employer] he
brought for her yesterday. He talked to her about her taking her meds and eating, and she agreed she would.
Per Yifan Vidal is unable to do a conservatorship as it's outside the scope of what they can do. He suggests hospital pursue a 302 for the eating issue, which they have employed there. He is aware that referrals were made to [facility]
and [facility], however patient is not ready for d/c at this time.
Spoke with Marci, [facility] & [facility]; provided clinical update. Marci is aware that patient is not medically ready for discharge.
Case discussed with Georgie Sawyer, Director. Discussed possible need for conservatorship.
Case discussed with Fady Delaney & Donte.
Plan TBD.
.
--- NOTE | 2024-03-04 12:29 | CM ---
Addendum entered by Georgie Sawyer RN 03/04/24 12:40:
Received return call from Elder Care Warehouse Shift Supervisor. He did speak at length with José Luis Salas at [facility] ,who provided information to him in regards to patient's finances. They also stated they would be willing to file for an MA Application
for this patient . He stated she also offered other resources that they have available if needed regarding pursuing guardianship if that is what is decided. Elder Care Warehouse Shift Supervisor stated that it would be more expeditious to attempt to identify someone
who would qualify to provide medical consent rather than to pursue guardianship, however if he is unable to then guardianship will be considered. He has not yet heard back from [employer].
Original Note:
Call placed to Elder Care Warehouse Shift Supervisor, explained possible need for guardianship for this patient , as per psychiatry patient not capable to make decisions on her own behalf, and she has no known living relatives or POA willing to make medical decisions
for her. Contacts provided for both [facility] and [facility]. Elder Care Warehouse Shift Supervisor will reach out to both of these organizations. He will try to identify anyone that could meet the qualifications to provide medical consent, prior to pursuing
guardianship. Update to
[2024-03-04] MEDS: DEPACON 55 MG IV (12:35)
--- NOTE | 2024-03-04 12:49 | W.PN.UPDATE ---
Update Note
Progress Note Update
patient seen chart reviewed. discussed w nursing and with dr mcfarlane. the patient is very difficult to engage in discussion. i attempted to ask her simple questions and to encourage her to talk about any subject....this was rather futile. most of
her answers were 'no'. i did learn she grew up around [place]...but not much more. at this point [facility] will not [facility] her back citing her unwillingness to eat drink and take meds. she is not aggressive or agitated. i suspect that this
reluctance ot eat drink and take meds has to do with underlying fears but certainly i cannot know for sure. she seems to me to be chronic schizophrenic with mostly negative sx including paucity of thought and expression, blunted affect, etc. will
try risperdal two mg q hs as she will take meds in liquid according to nsg. risperdal also tends to increase appetite which would be a + here.
--- NOTE | 2024-03-04 14:04 | PTCARENOTE ---
Pt remains lethargic, pale. agrees to take liquid meds in small amount of juice. Pt did ask for menu and told RN what she wanted for lunch but then refused to eat it once it arrived. vital signs stable. Pt will be moving to tele floor today. RN
educated pt on move.
--- NOTE | 2024-03-04 14:20 | W.PN.HOSP.TC ---
Today's Communication/Plan
-
see plan above
Assessment / Plan
Assessment / Plan
53 woman with early dementia and subsequently was [facility] for concern of sepsis with decreased oral intake and abnormal labs. CT w/ e/o colitis and C. Diff positive.
Clinical sepsis 2/2 C. Diff Infection
Acute colitis
-C. Diff positive
- normalized leukocytosis; patient taking p.o. vancomycin
-GI input and review of CT with minimal intrahepatic biliary dilatation and normal LFTs with low suspicion for obstruction so will obtain MRI as outpatient if patient agreeable.
-GI( signed off ) and ID consults appreciated
Hypokalemia -replete
hyponatremia-urine lites with very low Na suggestive of prerenal stimuli. With poor oral intake suspect possible hypohypovolemia related. Also patient not taking her Synthroid which could be playing a role. TSH ok. CW IV fluids as oral intake
is poor and follow Na.
Hyperglycemia- Suspect secondary to poor oral intake. Started on IV fluid with dextrose. Resolved
Anemia - drop in HH noted - no obvious external bleeding. suspect dilutional. iron panel with good iron stores
-stable
Hypothyroidism -TSH 0.04. She is on thyroid supplements at the high dose. Unclear most TSH. Decrease the dose of Synthroid but patient is refusing Synthroid medication..
*patient refusing synthroid
Urine retention
-Postvoid residuals high so got medina
-Now with indwelling Medina catheter
-Urology consulted
started flomax but again she is refusing that too
History of early dementia/dysphagia-patient without agitation. Continue with her home regimen. Patient refusing oral medication.
-appreciate psychiatry consult
patient refusing all medications
Patient deemed not competent to make medical decision. See psychiatrist input.
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 Patient is refusing oral medication and patient oral diet. Continue to encourage oral intake. Started on IV fluids with dextrose. Need to work on guardianship.
DW CM and psychaitry
Medially stable from C Diff and no active acute other medical issues noted but high respiratory compensation as patient is refusing to take medication on oral diet.
We need a POA/guardianship to discuss further regarding goals of care.
Code: Full
Anticipated Discharge: > 48 hours
Subjective/Interval History
-
Date of Service: March 04, 2024
Patient still refusing medications and oral intake.
Patient is alert and seems to be oriented to place but she does not talk much; does not interact much. Holds an eye contact. Flattened affect. Paucity no thoughts. Positive with her words
Objective Data
-
Labs:
Laboratory Results
03/04/24
05:12
WBC 5.1
Hgb 10.2 L
Hct 29.7 L
Plt Count 273
Sodium 130 L
Potassium 3.6
Chloride 104
Carbon Dioxide 26
BUN < 2 L
Creatinine 0.3 L
Glucose 106 H
Calcium 7.7 L
Vital Signs:
Vital Signs
Temp Pulse Resp BP Pulse Ox
98.2 F 91 14 113/81 96
03/04/24 12:51 03/04/24 14:00 03/04/24 14:00 03/04/24 14:00 03/03/24 20:48
I&O
03/03/24 03/04/24 03/05/24
06:59 06:59 06:59
Intake Total 340 / 340
Balance 340 / 340
Review of Systems
-
Unable to obtain full review of systems at this time due to: Other (due to her cognition issues)
Physical Exam
-
General: No Apparent Distress
HEENT: Moist Mucous Membranes
Respiratory: Clear to Auscultation
Cardiac: Regular Rhythm and S1/S2
GI: Soft, Nontender, Nondistended and Normal Bowel Sounds
Neuro: Awake and Alert
Psych: Calm and Confused; Negative Agitated
Data Reviewed
-
Labs: Labs Reviewed by me
[2024-03-04] MEDS: RISPERDAL ORAL SOLUTION 2 MG PO (15:16)
[2024-03-04] MEDS: LIPITOR PO (21:25)
[2024-03-04] MEDS: MIRAPEX PO (21:25)
[2024-03-05] MEDS: FIRVANQ 125 MG PO ×2 (00:49→05:34)
[2024-03-05] MEDS: DEPACON 55 MG IV ×2 (00:50→13:56)
[2024-03-05 03:26] VITALS: BP 115/79
[2024-03-05 05:00] LABS: Blood Urea Nitrogen < 2 mg/dl (7-17); Calcium 7.3 mg/dl (8.4-10.2); Carbon Dioxide 26 mmol/L (22-30); Chloride 102 mmol/L (98-107); Estimated Creatinine Clearance 108 ml/min; Glucose 90 mg/dl (70-99); Potassium 3.3 mmol/L (3.5-5.1); Sodium 129 mmol/L (135-145); eGFR > 60.00
[2024-03-05] MEDS: LOVENOX 80 MG SC ×2 (05:37→16:55)
[2024-03-05] MEDS: SYNTHROID 175 MCG PO (05:41)
[2024-03-05 07:48] VITALS: BP 132/88
[2024-03-05] MEDS: OSCAL CAL 500 1500 MG PO (07:51)
[2024-03-05] MEDS: FLOMAX 0.4 MG PO (07:51)
[2024-03-05] MEDS: KCL 20 MEQ PO (07:51)
[2024-03-05] MEDS: ARIMIDEX 1 MG PO (07:52)
[2024-03-05] MEDS: ProAmatine 5 MG PO (07:52)
[2024-03-05] MEDS: NEURONTIN 100 MG PO (07:52)
[2024-03-05] MEDS: VITAMIN D3 (cholecalciferol) 25 MCG PO (07:53)
--- NOTE | 2024-03-05 07:55 | PTCARENOTE ---
03/05- Patient has inappropriate affect; is withdrawn; only wants to sleep; refuses eating and meds unless able to use diversional activities. Able to have patient take her AM medications as ordered d/t telling her the meds in applejuice and making
a game out of it. She complied after a while of getting motivated. She refused breakfast except a couple of bites. She remains withdrawn, nonverbal and only wants to sleep. Physician and CM aware of behavior.
[2024-03-05] MEDS: D5/0.45%NSS with KCL 20 MEQ 1000 IV (09:47)
[2024-03-05] MEDS: KCL 270 MEQ IV (09:47)
[2024-03-05] MEDS: D5/0.45%NSS with KCL 20 MEQ IV (09:48)
[2024-03-05 11:05] VITALS: BP 136/85
--- NOTE | 2024-03-05 11:29 | W.PN.HOSP.TC ---
Today's Communication/Plan
-
On going efforts to obtain guardian for GOC discussion and disposition
Assessment / Plan
Assessment / Plan
53 woman with early dementia and subsequently was referred from local care home for concern of sepsis with decreased oral intake and abnormal labs. CT w/ e/o colitis and C. Diff positive.
Clinical sepsis 2/2 C. Diff Infection
Acute colitis
-C. Diff positive
- normalized leukocytosis; patient taking p.o. vancomycin
-GI input and review of CT with minimal intrahepatic biliary dilatation and normal LFTs with low suspicion for obstruction so will obtain MRI as outpatient if patient agreeable.
-GI( signed off ) and ID consults appreciated
Hypokalemia -replete
hyponatremia-urine lites with very low Na suggestive of prerenal stimuli. With poor oral intake suspect possible hypohypovolemia related. Also patient not taking her Synthroid which could be playing a role. TSH ok. CW IV fluids as oral intake
is poor and follow Na.
Anemia - drop in HH noted - no obvious external bleeding. suspect dilutional. iron panel with good iron stores
-stable
Hypothyroidism -TSH 0.04. She is on thyroid supplements at the high dose. Unclear most TSH. Decrease the dose of Synthroid but patient is refusing Synthroid medication..
*patient refusing synthroid
Urine retention
-Postvoid residuals high so got medina
-Now with indwelling Medina catheter
-Urology consulted
started flomax but again she is refusing that too
History of early dementia/dysphagia-patient without agitation. Continue with her home regimen. Patient refusing oral medication.
-appreciate psychiatry consult
patient refusing all medications
Patient deemed not competent to make medical decision. See psychiatrist input.
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 Patient is refusing oral medication and patient oral diet. Continue to encourage oral intake. Started on IV fluids with dextrose. Need to work on guardianship.
DW CM and psychaitry 03/04
Medially stable from C Diff and no active acute other medical issues noted but high risk for medical decompensation as patient is refusing to take medication and oral diet.
We need a POA/guardianship to discuss further regarding goals of care.
Code: Full
Anticipated Discharge: > 48 hours
Subjective/Interval History
-
Date of Service: March 05, 2024
' I want to go home to live with my mom'
( I am told by case management that her mom 3 years ago apparently]
patient is alert and oriented to self. She does not know the name of the place despite being here for few days.
Not affect. Still not taking much orally.
When encouraged to take oral diet she says yes but then she does not eat. No visible vomiting. Tolerating pills with applesauce.
No diarrhea per RN today
Objective Data
-
Labs:
Laboratory Results
03/05/24
04:23
Sodium 129 L
Potassium 3.3 L
Chloride 102
Carbon Dioxide 26
BUN < 2 L
Creatinine 0.3 L
Glucose 90
Calcium 7.3 L
Vital Signs:
Vital Signs
Temp Pulse Resp BP Pulse Ox
98.2 F 87 18 132/88 96
03/05/24 07:48 03/05/24 07:48 03/05/24 07:48 03/05/24 07:48 03/05/24 07:55
I&O
03/04/24 03/05/24 03/06/24
06:59 06:59 06:59
Intake Total 340 / 340 655 / 655
Balance 340 / 340 655 / 655
Review of Systems
-
Unable to obtain full review of systems at this time due to: Other (cognitive impairment)
Physical Exam
-
General: No Apparent Distress
HEENT: Moist Mucous Membranes
Respiratory: Non Labored Respirations; Negative Accessory Resp Muscle Use
Cardiac: Regular Rhythm and S1/S2
GI: Soft and Nontender
Neuro: Awake and Alert
Psych: Calm and Confused; Negative Agitated
Data Reviewed
-
Labs: Labs Reviewed by me
--- NOTE | 2024-03-05 12:46 | W.PN.UPDATE ---
Addendum entered and electronically signed by Sera Kent MD 03/06/24 16:10:
filled out form for court to obtain guardianship of patient.
Original Note:
Update Note
Progress Note Update
patient seen chart reviewed. spoke with nursing. the patient has received two doses of risperdal. i am not sure if it has done much yet for her but this is the first time she had a conversation with me since i met her one week ago. she told me she
was going [place] and someone was picking her up here today. she also said she would like mashed potatoes with extra gravy and mac and cheese. hopefully she will eat some of it. in the past she has expressed a desire for a food but then did
not eat it. she was more awake and alert. she was not buried beneath covers head included. i am hoping these are positive signs. no changes made in her meds. continue to follow
[2024-03-05] MEDS: ProAmatine PO ×2 (13:56→16:32)
[2024-03-05] MEDS: FIRVANQ PO ×2 (13:56→16:31)
[2024-03-05 14:46] VITALS: BP 135/85
--- NOTE | 2024-03-05 16:04 | CM ---
account manager trainee met with patient along with physician and nurse this morning, and per nursing patient did eat some of her lunch today. Patient was visited by Saline. Plan is to proceed with guardianship. Hospital dialysis equipment technician has been contacted and provided
with clinical documentation and psychiatric evaluation. account manager trainee reached out to [facility] at [facility] where patient has resided for 10 years, counseling case manager spoke with Jing in admissions at [facility] and pr admissions patient
signed herself in 3 months ago to [facility]. Plan was for short term placement.
Plan; Will await completion of guardianship paperwork on patient, plan is for skilled placement.
[2024-03-05] MEDS: NEURONTIN PO ×2 (16:31→22:52)
--- NOTE | 2024-03-05 16:32 | PTCARENOTE ---
03/05- Patient has been refusing all of her PO medications again despite distraction techniques or active listening. Patient ate <50% of her meal but did eat a few bites. Patient unable to learn education about medications but refuses education
anyway. Will continue to monitor.
[2024-03-05 19:39] VITALS: BP 127/80
[2024-03-05 22:33] VITALS: BP 124/72
[2024-03-05] MEDS: MIRAPEX PO (22:52)
[2024-03-05] MEDS: LIPITOR PO (22:52)
[2024-03-06] MEDS: DEPACON 55 MG IV ×2 (00:55→12:15)
[2024-03-06] MEDS: RISPERDAL ORAL SOLUTION PO ×2 (01:00→23:09)
[2024-03-06] MEDS: FIRVANQ PO ×2 (01:01→05:40)
[2024-03-06 03:33] VITALS: BP 138/76
[2024-03-06] MEDS: SYNTHROID PO (05:40)
[2024-03-06 06:00] VITALS: BMI 35.2
[2024-03-06] MEDS: LOVENOX 80 MG SC (06:24)
[2024-03-06 07:20] VITALS: BP 120/78
[2024-03-06] MEDS: D5/0.45%NSS with KCL 20 MEQ 1000 IV (10:19)
--- NOTE | 2024-03-06 10:26 | CM ---
Addendum entered by Kendra Baig 03/06/24 16:20:
Expert testimony form has been completed and provided to high school art teacher to proceed with guardianship.
Original Note:
Guardianship process initiated and high school art teacher has been contacted, paper work needs to be completed and processed, unable to proceed with [facility] with jail placement till guardian is in place.
Plan; To assist with placement for patient, guardianship process initiated.
[2024-03-06] MEDS: OSCAL CAL 500 PO (10:39)
[2024-03-06] MEDS: FLOMAX PO (10:39)
[2024-03-06] MEDS: ProAmatine PO ×3 (10:39→18:15)
[2024-03-06] MEDS: VITAMIN D3 (cholecalciferol) PO (10:39)
[2024-03-06] MEDS: KCL PO (10:39)
[2024-03-06] MEDS: ARIMIDEX PO (10:39)
[2024-03-06] MEDS: NEURONTIN PO ×3 (10:39→23:09)
[2024-03-06 11:00] VITALS: BP 144/86
--- NOTE | 2024-03-06 11:25 | W.PN.HOSP.TC ---
Today's Communication/Plan
-
Restart the Synthroid in IV form.
Ongoing disposition efforts/guardianship process
Assessment / Plan
Assessment / Plan
53 woman with early dementia and subsequently was [facility] for concern of sepsis with decreased oral intake and abnormal labs. CT w/ e/o colitis and C. Diff positive.
Clinical sepsis 2/2 C. Diff Infection
Acute colitis
-C. Diff positive
- normalized leukocytosis; patient now not taking her p.o. vancomycin
-GI input and review of CT with minimal intrahepatic biliary dilatation and normal LFTs with low suspicion for obstruction so will obtain MRI as outpatient if patient agreeable.
-GI( signed off ) ;ID following
Hypokalemia -repleted
Hyponatremia-urine lites with very low Na suggestive of prerenal stimuli. With poor oral intake suspect possible hypohypovolemia related. Also patient not taking her Synthroid which could be playing a role. TSH ok. CW IV fluids as oral intake
is poor and follow Na.
Anemia - drop in HH noted - no obvious external bleeding. suspect dilutional. iron panel with good iron stores
-stable
Hypothyroidism -TSH 0.04. She is on thyroid supplements at the high dose. Unclear most TSH. patient is refusing Synthroid medication and repeat TSH increasing ( still in normal range) . With a constant complaint of feeling cold. Recent TSH
again off of Synthroid will resume Synthroid IV but at a lower dose...
*patient refusing synthroid
Urine retention
-Postvoid residuals high so got medina
-Now with indwelling Medina catheter
-Urology consulted
started flomax but again she is refusing that too
History of early dementia/dysphagia-patient without agitation. Continue with her home regimen. Patient refusing oral medication.
-appreciate psychiatry consult
patient refusing all medications
Patient deemed not competent to make medical decision.
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 Patient is refusing oral medication and patient oral diet. Continue to encourage oral intake. cw IV fluids with dextrose. Need to work on guardianship.
DW psychaitry 03/06
Medially stable from C Diff and no active acute other medical issues noted but high risk for medical decompensation as patient is refusing to take medication and oral diet.
We need a POA/guardianship to discuss further regarding goals of care.
Code: Full
Anticipated Discharge: Within 24 hours
Subjective/Interval History
-
Date of Service: March 06, 2024
patient lying in the bed with the covered with the sheets.
Says she feels cold all the time .
She is noted to be alert; not conversive again today.
she did not take her medications or much oral intake.
Objective Data
-
Vital Signs:
Vital Signs
Temp Pulse Resp BP Pulse Ox
97.6 F 91 20 120/78 99
03/06/24 07:20 03/06/24 07:20 03/06/24 07:20 03/06/24 07:20 03/06/24 07:20
I&O
03/05/24 03/06/24 03/07/24
06:59 06:59 06:59
Intake Total 655 / 655 975 / 975
Balance 655 / 655 975 / 975
Review of Systems
-
Unable to obtain full review of systems at this time due to: Other ( Cognitive issues)
Physical Exam
-
General: No Apparent Distress
HEENT: Moist Mucous Membranes
Respiratory: Non Labored Respirations; Negative Accessory Resp Muscle Use
Cardiac: Regular Rhythm and S1/S2
GI: Soft
Neuro: Awake and Alert; Negative Oriented
Psych: Calm and Confused; Negative Agitated
--- NOTE | 2024-03-06 11:55 | W.PN.UPDATE ---
Update Note
Progress Note Update
patient seen chart reviewed. spoke with nursing and with cm. the patient was lying in bed. she did NOT have covers over her head. she did look at us both (me and cm) as she spoke. this continues to be an improvement over her early days in [facility].
she is not regularly taking her risperdal at this point and i have encouraged nursing to try and put the concentrate in her beverage of choice. will do the applications requested of me for the level two later today.
[2024-03-06] MEDS: FIRVANQ 125 MG PO ×2 (12:15→18:15)
[2024-03-06 15:00] VITALS: BP 130/84
[2024-03-06] MEDS: D5/0.45%NSS with KCL 20 MEQ IV (15:18)
[2024-03-06] MEDS: LOVENOX SC ×2 (18:15→18:28)
[2024-03-06] MEDS: LEVOTHROID 62.5 MCG IV (19:16)
[2024-03-06 19:25] VITALS: BP 120/75
[2024-03-06 22:17] VITALS: BP 124/78
[2024-03-06] MEDS: LIPITOR PO (23:09)
[2024-03-06] MEDS: MIRAPEX PO (23:09)
--- NOTE | 2024-03-06 23:52 | PTCARENOTE ---
Patient refused 2200 medications. Patient education provided. Nurse practitioner notified.
[2024-03-07] VITALS (7 sets, daily range): BP systolic 128–146; BP diastolic 79–94; BMI 35.0
[2024-03-07] MEDS: FIRVANQ PO ×5 (00:52→17:45)
[2024-03-07] MEDS: DEPACON 55 MG IV ×3 (00:52→23:10)
--- NOTE | 2024-03-07 01:39 | PTCARENOTE ---
Oral Vanco given to patient. Patient vomited medication up. Patient was cleaned up and nurse practitioner notified. Patient refusing to take any other medications. Patient education provided.
[2024-03-07] MEDS: D5/0.45%NSS with KCL 20 MEQ 1000 IV (02:44)
--- NOTE | 2024-03-07 03:49 | VATNOTE ---
Patient refused lab work. Primary RN notified.
--- NOTE | 2024-03-07 03:57 | PTCARENOTE ---
Patient refused morning lab draw, IV fluids, and stated that she does not want her 0600 medications. ALONDRA Fall made aware. No new orders.
[2024-03-07] MEDS: LOVENOX SC ×2 (05:14→16:17)
--- NOTE | 2024-03-07 06:07 | PTCARENOTE ---
RN and patient career and guidance counselor cleaned patient up at 0600. Patient stated that she was having 'heart pain' rated 8/10 and that it did not radiate. See chart for vitals. Patient refused pain medication and stated that she wanted to sleep. On-call CLAM BED WORKER
bryanna notified. No new orders. Call garzon within reach.
[2024-03-07] MEDS: FLOMAX PO (08:29)
[2024-03-07] MEDS: ARIMIDEX PO (08:29)
[2024-03-07] MEDS: ProAmatine PO ×3 (08:30→17:53)
[2024-03-07] MEDS: KCL PO (08:30)
[2024-03-07] MEDS: VITAMIN D3 (cholecalciferol) PO (08:30)
[2024-03-07] MEDS: NEURONTIN PO ×3 (08:30→23:02)
[2024-03-07] MEDS: OSCAL CAL 500 PO (08:30)
--- NOTE | 2024-03-07 10:45 | W.PN.UPDATE ---
Update Note
Progress Note Update
Patient is now again covering her face, is communicative but states she has her own psychiatrist and does not really want to talk to me. Affect flat, mood sad but denies hopelessness or suicidal thoughts.
Claims she takes her meds but records indicate she does not. However is not agitated or acutely psychotic.
Will continue F/U.
--- NOTE | 2024-03-07 12:45 | W.PN.HOSP.TC ---
Today's Communication/Plan
-
ongoing disposition efforts
Assessment / Plan
Assessment / Plan
53 woman with early dementia and subsequently was referred from local longterm for concern of sepsis with decreased oral intake and abnormal labs. CT w/ e/o colitis and C. Diff positive.
Clinical sepsis 2/2 C. Diff Infection
Acute colitis
-C. Diff positive
- normalized leukocytosis; patient now not taking her p.o. vancomycin
-GI input and review of CT with minimal intrahepatic biliary dilatation and normal LFTs with low suspicion for obstruction so will obtain MRI as outpatient if patient agreeable.
-GI( signed off ) ;ID signed off.
Hypokalemia -repleted
Hyponatremia-urine lites with very low Na suggestive of prerenal stimuli. With poor oral intake suspect possible hypohypovolemia related. Also patient not taking her Synthroid which could be playing a role. TSH ok. CW IV fluids as oral intake
is poor and follow Na.Labs pending from today.
Anemia - drop in HH noted - no obvious external bleeding. suspect dilutional. iron panel with good iron stores
-stable
Hypothyroidism -TSH 0.04. She is on thyroid supplements at the high dose. Unclear most TSH. patient is refusing Synthroid medication and repeat TSH increasing ( still in normal range) . With a constant complaint of feeling cold. Recent TSH
again off of Synthroid will resume Synthroid IV but at a lower dose...
*patient refusing synthroid
Urine retention
-Postvoid residuals high so got medina
-Now with indwelling Medina catheter
-Urology consulted
started flomax but again she is refusing that too
History of early dementia/dysphagia-patient without agitation. Continue with her home regimen. Patient refusing oral medication.
-appreciate psychiatry consult
patient refusing all medications
Patient deemed not competent to make medical decision.
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 Patient is refusing oral medication and patient oral diet. Continue to encourage oral intake. cw IV fluids with dextrose. Need to work on guardianship.
DW psychaitry 03/07
Medially stable from C Diff and no active acute other medical issues noted but high risk for medical decompensation as patient is refusing to take medication and oral diet.
We need a POA/guardianship to discuss further regarding goals of care.
Code: Full
Anticipated Discharge: > 48 hours
Subjective/Interval History
-
Date of Service: March 07, 2024
Says ' My mom is going to come and pick me, we are going to her friends house'
When asked where she thought she is ,she couldnt tell!
No agitation but confused.
Not taking PO meds nor oral diet much.
Objective Data
-
Vital Signs:
Vital Signs
Temp Pulse Resp BP Pulse Ox
98.3 F 95 16 146/92 97
03/07/24 11:24 03/07/24 11:24 03/07/24 11:24 03/07/24 11:24 03/07/24 11:24
I&O
03/06/24 03/07/24 03/08/24
06:59 06:59 06:59
Intake Total 975 / 975 480 / 480
Balance 975 / 975 480 / 480
Review of Systems
-
Unable to obtain full review of systems at this time due to: Other (cognitive issues)
Physical Exam
-
General: No Apparent Distress
Respiratory: Non Labored Respirations; Negative Accessory Resp Muscle Use
GI: Soft and Nontender
Neuro: Awake, Alert and Oriented (self only)
Psych: Calm and Confused; Negative Agitated
[2024-03-07] MEDS: LEVOTHROID 62.5 MCG IV (18:19)
[2024-03-07] MEDS: LIPITOR PO (23:02)
[2024-03-07] MEDS: RISPERDAL ORAL SOLUTION PO (23:02)
[2024-03-07] MEDS: MIRAPEX PO (23:02)
[2024-03-08] MEDS: FIRVANQ PO ×3 (00:48→12:49)
[2024-03-08 02:50] VITALS: BP 113/80
[2024-03-08] MEDS: LOVENOX SC ×2 (05:39→17:10)
[2024-03-08 06:00] VITALS: BMI 34.3
--- NOTE | 2024-03-08 06:23 | PTCARENOTE ---
Pt continues to refuse meds. Offered numerous times on separate occasions as well as fluids. Apple juice and gingerale offered but refused. Pt incontinent of bowel and bladder. Wears blanket over head and does not like to be turned or changed. VSS.
Plan of care ongoing.
[2024-03-08 07:04] VITALS: BP 121/81
[2024-03-08] MEDS: OSCAL CAL 500 PO (07:50)
[2024-03-08] MEDS: ARIMIDEX PO (07:50)
[2024-03-08] MEDS: FLOMAX PO (07:50)
[2024-03-08] MEDS: NEURONTIN PO ×3 (07:50→21:59)
[2024-03-08] MEDS: KCL PO (07:50)
[2024-03-08] MEDS: ProAmatine PO ×3 (07:51→17:17)
[2024-03-08] MEDS: VITAMIN D3 (cholecalciferol) PO (07:51)
--- NOTE | 2024-03-08 09:10 | W.PN.HOSP.TC ---
Today's Communication/Plan
-
dc planning
Refusing oral medications and care
Trial of IM Zyprexa or IM Haldol , will d/w psychiatry
Assessment / Plan
Assessment / Plan
Physical Exam
-
General: No Apparent Distress
Respiratory: Non Labored Respirations; Negative Accessory Resp Muscle Use
GI: Soft and Nontender
MSK: no edema in legs
: No Tyler
Skin: nO bruising
Neuro: Awake, Alert and Oriented (self only)
Psych: Calm, not cooperative
53 woman with early dementia and subsequently was referred from local shelter for concern of sepsis with decreased oral intake and abnormal labs. CT w/ e/o colitis and C. Diff positive.
Clinical sepsis 2/2 C. Diff Infection
Acute colitis
-C. Diff positive
- Pt refuses to take oral medication. No diarrhea.
- normalized leukocytosis; patient now not taking her p.o. vancomycin
-GI input and review of CT with minimal intrahepatic biliary dilatation and normal LFTs with low suspicion for obstruction so will obtain MRI as outpatient if patient agreeable.
-GI( signed off ) ;ID signed off.
Hypokalemia -repleted
Hyponatremia-urine lites with very low Na suggestive of prerenal stimuli. Also patient not taking her Synthroid which could be playing a role. TSH ok.
Anemia - drop in HH noted - no obvious external bleeding. suspect dilutional. iron panel with good iron stores
-stable
Hypothyroidism -TSH 0.04. She is on thyroid supplements at the high dose. Unclear most TSH. patient is refusing Synthroid medication and repeat TSH increasing ( still in normal range) . With a constant complaint of feeling cold. Recent TSH
again off of Synthroid will resume Synthroid IV but at a lower dose...
*patient refusing Synthroid
Urine retention
-Postvoid residuals high so got Tyler
-Off Tyler
-Urology consulted
started Flomax but again she is refusing that too
History of early dementia/dysphagia-patient without agitation. Continue with her home regimen. Patient refusing oral medication.
-appreciate psychiatry consult
patient refusing all medications
Patient deemed not competent to make medical decision.
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 Patient is refusing oral medication and patient oral diet. Continue to encourage oral intake. cw IV fluids with dextrose. Need to work on guardianship.
Medially stable from C Diff and no active acute other medical issues noted but high risk for medical decompensation as patient is refusing to take medication and oral diet.
We need a POA/guardianship to discuss further regarding goals of care.
Code: Full
Anticipated Discharge: Within 24 hours
Subjective/Interval History
-
Date of Service: March 08, 2024
She denies chest pain, sob or abdominal pain
Objective Data
-
Labs:
Laboratory Results
03/07/24
06:00
Sodium Cancelled
Potassium Cancelled
Chloride Cancelled
Carbon Dioxide Cancelled
BUN Cancelled
Creatinine Cancelled
Glucose Cancelled
Calcium Cancelled
Vital Signs:
Vital Signs
Temp Pulse Resp BP Pulse Ox
97.8 F 89 16 121/81 99
03/08/24 07:04 03/08/24 07:04 03/08/24 07:04 03/08/24 07:04 03/08/24 07:04
I&O
03/07/24 03/08/24 03/09/24
06:59 06:59 06:59
Intake Total 480 / 480
Balance 480 / 480
--- NOTE | 2024-03-08 11:13 | W.PN.UPDATE ---
Update Note
Progress Note Update
Patient has reportedly been intermittently agitated and not responding to Risperdal. Still covering her face and unwilling to talk.
Discussed with Dr. Samuel; will try IM Zyprexa prn for agitation. There is possible interaction with Mirapex but the same applies to the Risperdal.
Will continue F/U.
[2024-03-08 11:35] VITALS: BP 133/85
[2024-03-08] MEDS: DEPACON 55 MG IV (12:50)
[2024-03-08 15:08] VITALS: BP 134/87
[2024-03-08] MEDS: LEVOTHROID IV (17:10)
[2024-03-08 19:15] VITALS: BP 137/83
[2024-03-08] MEDS: LIPITOR PO (21:59)
[2024-03-08] MEDS: MIRAPEX PO (21:59)
--- NOTE | 2024-03-08 22:00 | PTCARENOTE ---
Pt refusing HS meds. Pt offered many times and pt continues refusing stating, 'I just want to go to bed.' Pt offered food and drinks since dinner on side table not touched, pt refuses says shes not hungry. Pt educated on importance of taking meds.
Pt incontinent of bowel and bladder, states she does not want to be changed or touched. VSS.
[2024-03-08 23:02] VITALS: BP 128/79
[2024-03-09] MEDS: DEPACON IV ×2 (00:13→23:22)
[2024-03-09 03:20] VITALS: BP 126/81
[2024-03-09] MEDS: LOVENOX SC ×2 (05:49→16:57)
[2024-03-09 06:07] VITALS: BMI 33.9
[2024-03-09 07:21] VITALS: BP 134/84
[2024-03-09] MEDS: NEURONTIN PO ×3 (09:00→23:18)
[2024-03-09] MEDS: ProAmatine PO ×3 (09:00→16:58)
[2024-03-09] MEDS: ARIMIDEX PO (09:00)
[2024-03-09] MEDS: KCL PO (09:00)
[2024-03-09] MEDS: FLOMAX PO (09:00)
[2024-03-09] MEDS: OSCAL CAL 500 PO (09:00)
--- NOTE | 2024-03-09 10:07 | W.PN.UPDATE ---
Update Note
Progress Note Update
Patient is not covering her face today, more verbal. Admits to feeling depressed but denies hopelessness or suicidal thoughts. Refusing her meds but cannot say why. Appetite is poor but ate minimal amount for breakfast.
I would try Wellbutrin XL 150 mg daily since she is hyponatremic.
Guardianship is being pursued.
[2024-03-09 11:17] VITALS: BP 135/85
[2024-03-09] MEDS: VITAMIN D3 (cholecalciferol) PO (12:44)
--- NOTE | 2024-03-09 13:02 | W.PN.HOSP.TC ---
Today's Communication/Plan
-
Monitor vital signs see plan
Awaiting guardianship
Wellbutrin started by psychiatry
Assessment / Plan
Assessment / Plan
Physical Exam
-
General: No Apparent Distress
Respiratory: Non Labored Respirations; Negative Accessory Resp Muscle Use
GI: Soft and Nontender
MSK: no edema in legs
: No Tyler
Skin: nO bruising
Neuro: Awake, Alert and Oriented (self only)
Psych: Calm, not cooperative
53 woman with early dementia and subsequently was referred from local [facility] for concern of sepsis with decreased oral intake and abnormal labs. CT w/ e/o colitis and C. Diff positive.
Clinical sepsis 2/2 C. Diff Infection
Acute colitis
-C. Diff positive
- Pt refuses to take oral medication. No diarrhea.
- normalized leukocytosis; patient now not taking her p.o. vancomycin
-GI input and review of CT with minimal intrahepatic biliary dilatation and normal LFTs with low suspicion for obstruction so will obtain MRI as outpatient if patient agreeable.
-GI( signed off ) ;ID signed off.
Hypokalemia -repleted
Hyponatremia-urine lites with very low Na suggestive of prerenal stimuli. Also patient not taking her Synthroid which could be playing a role. TSH ok.
Anemia - drop in HH noted - no obvious external bleeding. suspect dilutional. iron panel with good iron stores
-stable
Hypothyroidism -TSH 0.04. She is on thyroid supplements at the high dose. Unclear most TSH. patient is refusing Synthroid medication and repeat TSH increasing ( still in normal range) . With a constant complaint of feeling cold. Recent TSH
again off of Synthroid will resume Synthroid IV but at a lower dose...
*patient refusing Synthroid
Urine retention
-Postvoid residuals high so got Tyler
-Off Tyler
-Urology consulted
started Flomax but again she is refusing that too
History of early dementia/dysphagia-patient without agitation. Continue with her home regimen. Patient refusing oral medication.
-appreciate psychiatry consult
patient refusing all medications
Patient deemed not competent to make medical decision.
per psych does appear depressed. started wellbutyrin
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 Patient is refusing oral medication and patient oral diet. Continue to encourage oral intake. Need to work on guardianship.
Medially stable from C Diff and no active acute other medical issues noted but high risk for medical decompensation as patient is refusing to take medication and oral diet.
We need a POA/guardianship to discuss further regarding goals of care.
Code: Full
General: No Apparent Distress
Respiratory: Non Labored Respirations; Negative Accessory Resp Muscle Use
GI: Soft and Nontender
MSK: no edema in legs
: No Tyler
Skin: no bruising
Neuro: Awake, Alert and Oriented (self only)
Psych: Calm, not cooperative
Anticipated Discharge: Within 24 hours
Subjective/Interval History
-
Date of Service: March 09, 2024
denies pain
Objective Data
-
Vital Signs:
Vital Signs
Temp Pulse Resp BP Pulse Ox
98.6 F 93 18 135/85 97
03/09/24 11:17 03/09/24 11:17 03/09/24 11:17 03/09/24 11:17 03/09/24 11:17
[2024-03-09] MEDS: DEPACON 55 MG IV (13:05)
--- NOTE | 2024-03-09 13:19 | CM ---
Chart reviewed and patient is still refusing to take medication or eat, guardianship in process through elder [employer]bin fixer. Court hearing will need to be set up and case reviewed once all guardianship paper work in place.
Plan; To proceed with guardianship.
[2024-03-09 15:32] VITALS: BP 132/84
[2024-03-09] MEDS: LEVOTHROID IV (16:57)
[2024-03-09 19:36] VITALS: BP 122/81
[2024-03-09 23:10] VITALS: BP 131/75
[2024-03-09] MEDS: LIPITOR PO (23:18)
[2024-03-09] MEDS: MIRAPEX PO (23:18)
[2024-03-10 03:31] VITALS: BP 140/85
[2024-03-10] MEDS: LOVENOX SC ×2 (04:59→17:38)
[2024-03-10 06:00] VITALS: BMI 33.1
[2024-03-10 07:37] VITALS: BP 125/89
[2024-03-10] MEDS: OSCAL CAL 500 PO (09:34)
[2024-03-10] MEDS: NEURONTIN PO ×3 (09:34→22:18)
[2024-03-10] MEDS: KCL PO (09:34)
[2024-03-10] MEDS: ProAmatine PO ×3 (09:34→17:37)
[2024-03-10] MEDS: FLOMAX PO (09:34)
[2024-03-10] MEDS: ARIMIDEX PO (09:34)
[2024-03-10] MEDS: VITAMIN D3 (cholecalciferol) PO (09:35)
[2024-03-10 11:35] VITALS: BP 128/78
--- NOTE | 2024-03-10 12:19 | W.PN.HOSP.TC ---
Today's Communication/Plan
-
Monitor vital signs and see plan
Awaiting guardianship
Assessment / Plan
Assessment / Plan
Physical Exam
-
General: No Apparent Distress
Respiratory: Non Labored Respirations; Negative Accessory Resp Muscle Use
GI: Soft and Nontender
MSK: no edema in legs
: No Tyler
Skin: nO bruising
Neuro: Awake, Alert and Oriented (self only)
Psych: Calm, not cooperative
53 woman with early dementia and subsequently was referred from local long-term for concern of sepsis with decreased oral intake and abnormal labs. CT w/ e/o colitis and C. Diff positive.
Clinical sepsis 2/2 C. Diff Infection
Acute colitis
-C. Diff positive
- Pt refuses to take oral medication. No diarrhea.
- normalized leukocytosis; patient now not taking her p.o. vancomycin
-GI input and review of CT with minimal intrahepatic biliary dilatation and normal LFTs with low suspicion for obstruction so will obtain MRI as outpatient if patient agreeable.
-GI( signed off ) ;ID signed off.
Hypokalemia -repleted
Hyponatremia-urine lites with very low Na suggestive of prerenal stimuli. Also patient not taking her Synthroid which could be playing a role. TSH ok.
Anemia - drop in HH noted - no obvious external bleeding. suspect dilutional. iron panel with good iron stores
-stable
Hypothyroidism -TSH 0.04. She is on thyroid supplements at the high dose. Unclear most TSH. patient is refusing Synthroid medication and repeat TSH increasing ( still in normal range) . With a constant complaint of feeling cold. Recent TSH
again off of Synthroid will resume Synthroid IV but at a lower dose...
*patient refusing Synthroid
Urine retention
-Postvoid residuals high so got Tyler
-Off Tyler
-Urology consulted
started Flomax but again she is refusing that too
History of early dementia/dysphagia-patient without agitation. Continue with her home regimen. Patient refusing oral medication.
-appreciate psychiatry consult
patient refusing all medications
Patient deemed not competent to make medical decision.
per psych does appear depressed. started Wellbutrin
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 Patient is refusing oral medication and patient oral diet. Continue to encourage oral intake. Need to work on guardianship.
Medially stable from C Diff and no active acute other medical issues noted but high risk for medical decompensation as patient is refusing to take medication and oral diet.
We need a POA/guardianship to discuss further regarding goals of care.
Code: Full
Anticipated Discharge: > 48 hours
Subjective/Interval History
-
Date of Service: March 10, 2024
no pain
Objective Data
-
Vital Signs:
Vital Signs
Temp Pulse Resp BP Pulse Ox
97.8 F 97 19 128/78 98
03/10/24 11:35 03/10/24 11:35 03/10/24 11:35 03/10/24 11:35 03/10/24 11:35
I&O
03/09/24 03/10/24 03/11/24
06:59 06:59 06:59
Intake Total 170 / 170
Balance 170 / 170
--- NOTE | 2024-03-10 12:22 | W.PN.UPDATE ---
Update Note
Progress Note Update
patient seen chart reviewed. patient readily removed the blanket from her face and talked to me although it was not a very involved discussion. she said she needed a [facility] to help her find a place to live. we talked about her not eating.
she is not hungry. i did tell her i would bring her blueberry yoghurt and canteloupe tomorrow. she said she would eat them. she does not appear to me to be depressed frankly. 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
schizophrenia. i have dc'ed the wellbutrin as she is not taking meds in any case and her serum sodium is 129 and while wellbutrin is not as likely to cause hyponatremia, it can cause it and 129 is quite low. i also do not believe what we are
seeing is depression. while she is not particulary cooperative w meds or eating, she is not aggressive either . there is an im prn for olanzapine for aggression but she has not needed it. pursuing guardianship.
[2024-03-10] MEDS: DEPACON 55 MG IV (12:55)
--- NOTE | 2024-03-10 13:08 | CM ---
Guardianship in process will follow.
Plan; Guardianship.
[2024-03-10 15:23] VITALS: BP 151/81
[2024-03-10] MEDS: LEVOTHROID 62.5 MCG IV (17:34)
[2024-03-10] MEDS: LIPITOR PO (22:18)
[2024-03-10] MEDS: MIRAPEX PO (22:18)
[2024-03-10 23:08] VITALS: BP 121/80
--- NOTE | 2024-03-10 23:10 | PTCARENOTE ---
Pt continues to refuse all HS meds. Pt declines any food, or beverage offered as well. Pt continues to hide head under sheets and say, 'I am okay I don't need any of the meds tonight.' Pt educated on the need for medications but continues to
decline. VSS.
[2024-03-11] MEDS: DEPACON IV (00:12)
[2024-03-11] MEDS: LOVENOX SC ×2 (05:03→17:14)
[2024-03-11 06:00] VITALS: BMI 33.1
[2024-03-11 07:21] VITALS: BP 137/75
[2024-03-11] MEDS: OSCAL CAL 500 PO (08:28)
[2024-03-11] MEDS: ARIMIDEX PO (08:28)
[2024-03-11] MEDS: FLOMAX PO (08:28)
[2024-03-11] MEDS: ProAmatine PO ×3 (08:28→17:14)
[2024-03-11] MEDS: NEURONTIN PO ×2 (08:28→15:55)
[2024-03-11] MEDS: KCL PO (08:28)
[2024-03-11] MEDS: VITAMIN D3 (cholecalciferol) PO (08:29)
[2024-03-11 10:00] VITALS: BMI 33.6
--- NOTE | 2024-03-11 11:35 | W.PN.HOSP.TC ---
Today's Communication/Plan
-
Monitor vitals
see plan
Awaiting guardianship
Assessment / Plan
Assessment / Plan
Physical Exam
-
General: No Apparent Distress
Respiratory: Non Labored Respirations; Negative Accessory Resp Muscle Use
GI: Soft and Nontender
MSK: no edema in legs
: No Tyler
Skin: nO bruising
Neuro: Awake, Alert and Oriented (self only)
Psych: Calm, not cooperative
53 woman with early dementia and subsequently was referred from local care home for concern of sepsis with decreased oral intake and abnormal labs. CT w/ e/o colitis and C. Diff positive.
Clinical sepsis 2/2 C. Diff Infection
Acute colitis
-C. Diff positive
- Pt refuses to take oral medication. No diarrhea.
- normalized leukocytosis; patient now not taking her p.o. vancomycin
-GI input and review of CT with minimal intrahepatic biliary dilatation and normal LFTs with low suspicion for obstruction so will obtain MRI as outpatient if patient agreeable.
-GI( signed off ) ;ID signed off.
Hypokalemia -repleted
Hyponatremia-urine lites with very low Na suggestive of prerenal stimuli. Also patient not taking her Synthroid which could be playing a role. TSH ok.
Anemia - drop in HH noted - no obvious external bleeding. suspect dilutional. iron panel with good iron stores
-stable
Hypothyroidism -TSH 0.04. She is on thyroid supplements at the high dose. Unclear most TSH. patient is refusing Synthroid medication and repeat TSH increasing ( still in normal range) . With a constant complaint of feeling cold. Recent TSH
again off of Synthroid will resume Synthroid IV but at a lower dose...
*patient refusing Synthroid
Urine retention
-Postvoid residuals high so got Tyler
-Off Tyler
-Urology consulted
started Flomax but again she is refusing that too
History of early dementia/dysphagia-patient without agitation. Continue with her home regimen. Patient refusing oral medication.
-appreciate psychiatry consult
patient refusing all medications
Patient deemed not competent to make medical decision.
per psych does appear depressed. started Wellbutrin
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 Patient is refusing oral medication and patient oral diet. Continue to encourage oral intake. Need to work on guardianship.
Medially stable from C Diff and no active acute other medical issues noted but high risk for medical decompensation as patient is refusing to take medication and oral diet.
We need a POA/guardianship to discuss further regarding goals of care.
Code: Full
Anticipated Discharge: Today
Subjective/Interval History
-
Date of Service: March 11, 2024
denies pain
Objective Data
-
Vital Signs:
Vital Signs
Temp Pulse Resp BP Pulse Ox
98.7 F 74 20 137/75 98
03/11/24 07:21 03/11/24 07:21 03/11/24 07:21 03/11/24 07:21 03/11/24 07:21
I&O
03/10/24 03/11/24 03/12/24
06:59 06:59 06:59
Intake Total 170 / 170 120 / 120
Balance 170 / 170 120 / 120
--- NOTE | 2024-03-11 12:20 | PTCARENOTE ---
Notified provider that the patient has had no BM since Saturday but barely taking in anything PO.
--- NOTE | 2024-03-11 12:21 | W.PN.UPDATE ---
Update Note
Progress Note Update
patient seen chart reviewed. discussed w nursing and with cm. 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 she readily talked to me. what she said did not necessarily make much sense...she needed to get an appartment in [place] etc but she was
pleasant and interactive. i did bring her blueberry yoghut and cantaloupe as she requested. asked nursing to see if she ate it (iv nurse was working w her when we were talking so patient could not start eating ) did not make any changes in her
meds which she does not take anyway. she has not required im prns at this point. hopefully if she starts eating and taking meds as guardianship comes through disposition can be arranged.
[2024-03-11] MEDS: DEPACON 55 MG IV (13:10)
--- NOTE | 2024-03-11 14:44 | CM ---
Guardian process still in progress, need to identify a guardian and then proceed with court hearing.
Plan; To proceed with guardianship for patient.
[2024-03-11 15:38] VITALS: BP 116/76
[2024-03-11] MEDS: LEVOTHROID 62.5 MCG IV (17:13)
--- NOTE | 2024-03-11 17:52 | PTCARENOTE ---
Patient c/o 'pain in her heart,' could not rate it, could not describe what it felt like but stated to RN she's been feeling this 'all day.' MD notified, in interactions throughout the shift the patient did not endorse CP. EKG NSR RBBB conducive
with previous tele strips, trop drawn. Patient declined Maalox. Admits continued pain, appears in NAD, repositioned and fell asleep. No further needs assessed at this time.
[2024-03-11 18:09] LABS: Troponin I < 0.012 ng/ml
[2024-03-11] MEDS: NEURONTIN 100 MG PO (22:14)
[2024-03-11] MEDS: LIPITOR 40 MG PO (22:14)
[2024-03-11] MEDS: MIRAPEX 0.25 MG PO (22:15)
[2024-03-11 23:00] VITALS: BP 142/106
[2024-03-12] MEDS: DEPACON 55 MG IV ×3 (01:22→23:04)
[2024-03-12] MEDS: FLUSH (NSS) 2 FLUSH IV (01:24)
[2024-03-12] MEDS: LOVENOX SC ×2 (05:43→17:57)
[2024-03-12 06:00] VITALS: BMI 33.2
[2024-03-12 07:00] VITALS: BP 117/73
[2024-03-12] MEDS: ARIMIDEX PO (08:08)
[2024-03-12] MEDS: FLOMAX PO (08:08)
[2024-03-12] MEDS: KCL PO (08:08)
[2024-03-12] MEDS: NEURONTIN PO ×3 (08:08→20:42)
[2024-03-12] MEDS: ProAmatine PO ×3 (08:08→17:57)
[2024-03-12] MEDS: OSCAL CAL 500 PO (08:08)
[2024-03-12] MEDS: VITAMIN D3 (cholecalciferol) PO (08:09)
--- NOTE | 2024-03-12 11:31 | W.PN.HOSP.TC ---
Today's Communication/Plan
-
Monitor vital signs see plan
Awaiting guardianship
Denies any chest pain today
Assessment / Plan
Assessment / Plan
Physical Exam
-
General: No Apparent Distress
Respiratory: Non Labored Respirations; Negative Accessory Resp Muscle Use
GI: Soft and Nontender
MSK: no edema in legs
: No Tyler
Skin: nO bruising
Neuro: Awake, Alert and Oriented (self only)
Psych: Calm, not cooperative
53 woman with early dementia and subsequently was referred from local long-term for concern of sepsis with decreased oral intake and abnormal labs. CT w/ e/o colitis and C. Diff positive.
Clinical sepsis 2/2 C. Diff Infection
Acute colitis
-C. Diff positive
- Pt refuses to take oral medication. No diarrhea.
- normalized leukocytosis; patient now not taking her p.o. vancomycin
-GI input and review of CT with minimal intrahepatic biliary dilatation and normal LFTs with low suspicion for obstruction so will obtain MRI as outpatient if patient agreeable.
-GI( signed off ) ;ID signed off.
Hypokalemia -repleted
Hyponatremia-urine lites with very low Na suggestive of prerenal stimuli. Also patient not taking her Synthroid which could be playing a role. TSH ok.
Anemia - drop in HH noted - no obvious external bleeding. suspect dilutional. iron panel with good iron stores
-stable
Hypothyroidism -TSH 0.04. She is on thyroid supplements at the high dose. Unclear most TSH. patient is refusing Synthroid medication and repeat TSH increasing ( still in normal range) . With a constant complaint of feeling cold. Recent TSH
again off of Synthroid will resume Synthroid IV but at a lower dose...
*patient refusing Synthroid
chest pain /
refused maalox; suspect reflux related
trop neg; EKG unchanged
Urine retention
-Postvoid residuals high so got Tyler
-Off Tyler
-Urology consulted
started Flomax but again she is refusing that too
History of early dementia/dysphagia-patient without agitation. Continue with her home regimen. Patient refusing oral medication.
-appreciate psychiatry consult
patient refusing all medications
Patient deemed not competent to make medical decision.
per psych does appear depressed. started Wellbutrin
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 Patient is refusing oral medication and patient oral diet. Continue to encourage oral intake. Need to work on guardianship.
Medially stable from C Diff and no active acute other medical issues noted but high risk for medical decompensation as patient is refusing to take medication and oral diet.
We need a POA/guardianship to discuss further regarding goals of care.
Code: Full
Anticipated Discharge: Within 24 hours
Subjective/Interval History
-
Date of Service: March 12, 2024
denies pain
Objective Data
-
Vital Signs:
Vital Signs
Temp Pulse Resp BP Pulse Ox
97.8 F 90 16 117/73 97
03/12/24 07:00 03/12/24 07:00 03/12/24 07:00 03/12/24 07:00 03/12/24 07:00
I&O
03/11/24 03/12/24 03/13/24
06:59 06:59 06:59
Intake Total 120 / 120 360 / 360
Balance 120 / 120 360 / 360
[2024-03-12 15:00] VITALS: BP 111/76
--- NOTE | 2024-03-12 17:27 | W.PN.UPDATE ---
Update Note
Progress Note Update
Pt seen, chart reviewed. Had blanket over her head, snoring loudly - did not wake to name and given that there is not much to be done psychiatrically at this time did not make further attempts to rouse her. Has not been needing PRNs, not taking
medication or eating still - untouched tray by her bed.
Guardianship pending at this time
[2024-03-12] MEDS: LEVOTHROID 62.5 MCG IV (17:58)
[2024-03-12] MEDS: LIPITOR PO (20:41)
[2024-03-12] MEDS: MIRAPEX PO (20:42)
[2024-03-12] MEDS: MIRAPEX 0.25 MG PO (20:43)
[2024-03-12] MEDS: NEURONTIN 100 MG PO (20:43)
[2024-03-12] MEDS: LIPITOR 40 MG PO (20:43)
[2024-03-12 23:21] VITALS: BP 110/71
[2024-03-13] MEDS: LOVENOX SC ×2 (05:01→16:59)
[2024-03-13 05:25] VITALS: BMI 32.6
[2024-03-13 07:00] VITALS: BP 108/70
[2024-03-13] MEDS: FLOMAX 0.4 MG PO (08:40)
[2024-03-13] MEDS: ProAmatine 5 MG PO (08:40)
[2024-03-13] MEDS: OSCAL CAL 500 1500 MG PO (08:41)
[2024-03-13] MEDS: ARIMIDEX 1 MG PO (08:42)
[2024-03-13] MEDS: KCL 20 MEQ PO (08:42)
[2024-03-13] MEDS: NEURONTIN 100 MG PO ×2 (08:42→20:31)
[2024-03-13] MEDS: VITAMIN D3 (cholecalciferol) 25 MCG PO (08:42)
[2024-03-13] MEDS: DEPACON 55 MG IV (11:43)
[2024-03-13] MEDS: ProAmatine PO ×2 (12:12→17:06)
--- NOTE | 2024-03-13 13:26 | W.PN.HOSP.TC ---
Today's Communication/Plan
-
Monitor vital signs see plan
Awaiting guardianship
Assessment / Plan
Assessment / Plan
Physical Exam
-
General: No Apparent Distress
Respiratory: Non Labored Respirations; Negative Accessory Resp Muscle Use
GI: Soft and Nontender
MSK: no edema in legs
: No Tyler
Skin: nO bruising
Neuro: Awake, Alert and Oriented (self only)
Psych: Calm, not cooperative
53 woman with early dementia and subsequently was referred from local skilled nursing for concern of sepsis with decreased oral intake and abnormal labs. CT w/ e/o colitis and C. Diff positive.
Clinical sepsis 2/2 C. Diff Infection
Acute colitis
-C. Diff positive
- Pt refuses to take oral medication. No diarrhea.
- normalized leukocytosis; patient now not taking her p.o. vancomycin
-GI input and review of CT with minimal intrahepatic biliary dilatation and normal LFTs with low suspicion for obstruction so will obtain MRI as outpatient if patient agreeable.
-GI( signed off ) ;ID signed off.
Hypokalemia -repleted
Hyponatremia-urine lites with very low Na suggestive of prerenal stimuli. Also patient not taking her Synthroid which could be playing a role. TSH ok.
Anemia - drop in HH noted - no obvious external bleeding. suspect dilutional. iron panel with good iron stores
-stable
Hypothyroidism -TSH 0.04. She is on thyroid supplements at the high dose. Unclear most TSH. patient is refusing Synthroid medication and repeat TSH increasing ( still in normal range) . With a constant complaint of feeling cold. Recent TSH
again off of Synthroid will resume Synthroid IV but at a lower dose...
*patient refusing Synthroid
chest pain 03/11
refused maalox; suspect reflux related
trop neg; EKG unchanged
Urine retention
-Postvoid residuals high so got Tyler
-Off Tyler
-Urology consulted
started Flomax but again she is refusing that too
History of early dementia/dysphagia-patient without agitation. Continue with her home regimen. Patient refusing oral medication.
-appreciate psychiatry consult
patient refusing all medications
Patient deemed not competent to make medical decision.
per psych does appear depressed. started Wellbutrin however patient refused; now stopped.
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 Patient is refusing oral medication and patient oral diet. Continue to encourage oral intake. Need to work on guardianship.
Medially stable from C Diff and no active acute other medical issues noted but high risk for medical decompensation as patient is refusing to take medication and oral diet.
We need a POA/guardianship to discuss further regarding goals of care.
Code: Full
Anticipated Discharge: Within 24 hours
Subjective/Interval History
-
Date of Service: March 13, 2024
denies pain
Objective Data
-
Vital Signs:
Vital Signs
Temp Pulse Resp BP Pulse Ox
97.6 F 96 18 108/70 98
03/13/24 07:00 03/13/24 07:00 03/13/24 07:00 03/13/24 08:40 03/13/24 12:33
I&O
03/12/24 03/13/24 03/14/24
06:59 06:59 06:59
Intake Total 360 / 360 480 / 480
Balance 360 / 360 480 / 480
[2024-03-13 15:00] VITALS: BP 121/73
--- NOTE | 2024-03-13 15:24 | CM ---
Chart reviewed and still working on guardianship, communication specialist to petition the court and proceed with guardianship.
Plan; Guardianship in process.
[2024-03-13] MEDS: NEURONTIN PO (15:48)
[2024-03-13] MEDS: LEVOTHROID 62.5 MCG IV (17:04)
--- NOTE | 2024-03-13 18:29 | W.PN.UPDATE ---
Update Note
Progress Note Update
Pt seen at bedside, chart reviewed. Was conversant and pleasant today. Reported that she is leaving today as her mother's friend is coming to pick her up, then proceeded to ask me where this friend was. Pt did say she drank some water today and felt
better after doing so. Said that she would like to eat some homemade soup, however when told she can order soup from the cafeteria here said she does not like the food here and will not be doing so. Attempted to encourage her to at least try some
soup, but she was quite adamant that she will not.
Continues to refuse medications, guardianship currently pending.
No changes in psychiatric intervention at this time.
[2024-03-13] MEDS: LIPITOR 40 MG PO (20:31)
[2024-03-13] MEDS: MIRAPEX 0.25 MG PO (20:31)
--- NOTE | 2024-03-13 21:00 | PTCARENOTE ---
Pt. agreed to take oral medications tonight.
[2024-03-13 23:11] VITALS: BP 133/78
[2024-03-14] MEDS: DEPACON 55 MG IV ×2 (00:26→12:20)
[2024-03-14] MEDS: LOVENOX 80 MG SC (05:10)
[2024-03-14 05:35] VITALS: BMI 32.4
[2024-03-14 07:36] VITALS: BP 103/62
[2024-03-14] MEDS: OSCAL CAL 500 1500 MG PO (08:18)
[2024-03-14] MEDS: ARIMIDEX 1 MG PO (08:18)
[2024-03-14] MEDS: ProAmatine 5 MG PO ×2 (08:18→17:17)
[2024-03-14] MEDS: FLOMAX 0.4 MG PO (08:18)
[2024-03-14] MEDS: KCL 20 MEQ PO (08:18)
[2024-03-14] MEDS: VITAMIN D3 (cholecalciferol) 25 MCG PO (08:18)
[2024-03-14] MEDS: NEURONTIN 100 MG PO ×3 (08:19→20:47)
[2024-03-14] MEDS: ProAmatine PO (12:35)
--- NOTE | 2024-03-14 14:09 | W.PN.HOSP.TC ---
Today's Communication/Plan
-
Monitor vital signs see plan
Awaiting guardianship
Assessment / Plan
Assessment / Plan
Physical Exam
-
General: No Apparent Distress
Respiratory: Non Labored Respirations; Negative Accessory Resp Muscle Use
GI: Soft and Nontender
MSK: no edema in legs
: No Tyler
Skin: nO bruising
Neuro: Awake, Alert and Oriented (self only)
Psych: Calm, not cooperative
53 woman with early dementia and subsequently was referred from local skilled nursing for concern of sepsis with decreased oral intake and abnormal labs. CT w/ e/o colitis and C. Diff positive.
Clinical sepsis 2/2 C. Diff Infection
Acute colitis
-C. Diff positive
- Pt refuses to take oral medication. No diarrhea.
- normalized leukocytosis; patient now not taking her p.o. vancomycin
-GI input and review of CT with minimal intrahepatic biliary dilatation and normal LFTs with low suspicion for obstruction so will obtain MRI as outpatient if patient agreeable.
-GI( signed off ) ;ID signed off.
Hypokalemia -repleted
Hyponatremia-urine lites with very low Na suggestive of prerenal stimuli. Also patient not taking her Synthroid which could be playing a role. TSH ok.
Anemia - drop in HH noted - no obvious external bleeding. suspect dilutional. iron panel with good iron stores
-stable
Hypothyroidism -TSH 0.04. She is on thyroid supplements at the high dose. Unclear most TSH. patient is refusing Synthroid medication and repeat TSH increasing ( still in normal range) . With a constant complaint of feeling cold. Recent TSH
again off of Synthroid will resume Synthroid IV but at a lower dose...
*patient refusing Synthroid
chest pain 03/11
refused maalox; suspect reflux related
trop neg; EKG unchanged
Urine retention
-Postvoid residuals high so got Tyler
-Off Tyler
-Urology consulted
started Flomax but again she is refusing that too
History of early dementia/dysphagia-patient without agitation. Continue with her home regimen. Patient refusing oral medication.
-appreciate psychiatry consult
patient refusing all medications
Patient deemed not competent to make medical decision.
per psych does appear depressed. started Wellbutrin however patient refused; now stopped.
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 Patient is refusing oral medication and patient oral diet. Continue to encourage oral intake. Need to work on guardianship.
Medially stable from C Diff and no active acute other medical issues noted but high risk for medical decompensation as patient is refusing to take medication and oral diet.
We need a POA/guardianship to discuss further regarding goals of care.
Code: Full
Anticipated Discharge: > 48 hours
Subjective/Interval History
-
Date of Service: March 14, 2024
No pain
Objective Data
-
Vital Signs:
Vital Signs
Temp Pulse Resp BP Pulse Ox
98.3 F 86 16 103/62 97
03/14/24 07:36 03/14/24 07:36 03/14/24 07:36 03/14/24 07:36 03/14/24 10:05
I&O
03/13/24 03/14/24 03/15/24
06:59 06:59 06:59
Intake Total 480 / 480 55 / 55
Balance 480 / 480 55 / 55
[2024-03-14 15:45] VITALS: BP 122/66
[2024-03-14] MEDS: LEVOTHROID 62.5 MCG IV (17:18)
[2024-03-14] MEDS: LOVENOX SC (17:18)
--- NOTE | 2024-03-14 17:19 | W.PN.UPDATE ---
Update Note
Progress Note Update
Attempted to interview pt today but she did not want to engage today. Was laying on her side with blanket covering her. Was moving her legs at times and did not appear to be sleeping, however did not want to engage in conversation.
Continues to refuse medications, guardianship currently pending.
No changes in psychiatric intervention at this time.
[2024-03-14] MEDS: MIRAPEX 0.25 MG PO (20:47)
[2024-03-14] MEDS: LIPITOR 40 MG PO (20:47)
--- NOTE | 2024-03-14 21:00 | PTCARENOTE ---
Pt. agreed to take oral medication tonight with no issues.
[2024-03-14 23:43] VITALS: BP 116/68
[2024-03-15] MEDS: DEPACON 55 MG IV ×3 (00:13→23:01)
[2024-03-15] MEDS: FLUSH (NSS) 2 FLUSH IV (00:14)
[2024-03-15] MEDS: LOVENOX SC ×2 (05:40→16:30)
[2024-03-15 06:00] VITALS: BMI 32.7
[2024-03-15 07:33] VITALS: BP 126/77
[2024-03-15] MEDS: NEURONTIN PO ×3 (10:26→16:30)
[2024-03-15] MEDS: FLOMAX PO ×2 (10:26→10:36)
[2024-03-15] MEDS: ProAmatine PO ×4 (10:26→16:30)
[2024-03-15] MEDS: KCL PO ×2 (10:27→10:36)
[2024-03-15] MEDS: ARIMIDEX PO ×2 (10:27→10:36)
[2024-03-15] MEDS: VITAMIN D3 (cholecalciferol) PO ×2 (10:27→10:37)
[2024-03-15] MEDS: OSCAL CAL 500 PO ×2 (10:27→10:37)
--- NOTE | 2024-03-15 12:31 | W.PN.HOSP.TC ---
Today's Communication/Plan
-
Monitor vital signs
see plan
Awaiting guardianship
Assessment / Plan
Assessment / Plan
Physical Exam
-
General: No Apparent Distress
Respiratory: Non Labored Respirations; Negative Accessory Resp Muscle Use
GI: Soft and Nontender
MSK: no edema in legs
: No Tyler
Skin: nO bruising
Neuro: Awake, Alert and Oriented (self only)
Psych: Calm, not cooperative
53 woman with early dementia and subsequently was referred from local [facility] for concern of sepsis with decreased oral intake and abnormal labs. CT w/ e/o colitis and C. Diff positive.
Clinical sepsis 2/2 C. Diff Infection
Acute colitis
-C. Diff positive
- Pt refuses to take oral medication. No diarrhea.
- normalized leukocytosis; patient now not taking her p.o. vancomycin
-GI input and review of CT with minimal intrahepatic biliary dilatation and normal LFTs with low suspicion for obstruction so will obtain MRI as outpatient if patient agreeable.
-GI( signed off ) ;ID signed off.
Hypokalemia -repleted
Hyponatremia-urine lites with very low Na suggestive of prerenal stimuli. Also patient not taking her Synthroid which could be playing a role. TSH ok.
Anemia - drop in HH noted - no obvious external bleeding. suspect dilutional. iron panel with good iron stores
-stable
Hypothyroidism -TSH 0.04. She is on thyroid supplements at the high dose. Unclear most TSH. patient is refusing Synthroid medication and repeat TSH increasing ( still in normal range) . With a constant complaint of feeling cold. Recent TSH
again off of Synthroid will resume Synthroid IV but at a lower dose...
*patient refusing Synthroid
chest pain 03/11
refused maalox; suspect reflux related
trop neg; EKG unchanged
Urine retention
-Postvoid residuals high so got Tyler
-Off Tyler
-Urology consulted
started Flomax but again she is refusing that too
History of early dementia/dysphagia-patient without agitation. Continue with her home regimen. Patient refusing oral medication.
-appreciate psychiatry consult
patient refusing all medications
Patient deemed not competent to make medical decision.
per psych does appear depressed. started Wellbutrin however patient refused; now stopped.
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 Patient is refusing oral medication and patient oral diet. Continue to encourage oral intake. Need to work on guardianship.
Medially stable from C Diff and no active acute other medical issues noted but high risk for medical decompensation as patient is refusing to take medication and oral diet.
We need a POA/guardianship to discuss further regarding goals of care.
Code: Full
Anticipated Discharge: > 48 hours
Subjective/Interval History
-
Date of Service: March 15, 2024
Denies pain
Objective Data
-
Vital Signs:
Vital Signs
Temp Pulse Resp BP Pulse Ox
98 F 103 16 126/77 98
03/15/24 07:33 03/15/24 07:33 03/15/24 07:33 03/15/24 07:33 03/15/24 07:33
I&O
03/14/24 03/15/24 03/16/24
06:59 06:59 06:59
Intake Total 55 / 55 175 / 175
Balance 55 / 55 175 / 175
[2024-03-15 15:13] VITALS: BP 115/77
[2024-03-15] MEDS: LEVOTHROID IV (16:30)
--- NOTE | 2024-03-15 17:30 | W.PN.UPDATE ---
Update Note
Progress Note Update
Pt remains preoccupied with leaving with her mothers friends & says she lives at [facility] where she can stay for 30 days, though later says she does not want to go there. Continues to not eat, says she has a 'stomach bug' and will not
discuss further - 'I don't want to keep talking about this!'. Is laying in bed calmly however and has not been agitated.
Continues to refuse medications, guardianship currently pending.
No changes in psychiatric intervention at this time.
[2024-03-15] MEDS: NEURONTIN 100 MG PO (21:00)
[2024-03-15] MEDS: LIPITOR 40 MG PO (21:00)
[2024-03-15] MEDS: MIRAPEX 0.25 MG PO (21:00)
--- NOTE | 2024-03-15 21:00 | PTCARENOTE ---
Pt agreed to take PO medications tonight; refusing repositioning at this time.
[2024-03-15 23:22] VITALS: BP 131/77
[2024-03-16] MEDS: LOVENOX 80 MG SC ×2 (05:28→17:25)
[2024-03-16 06:00] VITALS: BMI 31.9
[2024-03-16 07:26] VITALS: BP 105/74
[2024-03-16] MEDS: VITAMIN D3 (cholecalciferol) PO (09:04)
[2024-03-16] MEDS: OSCAL CAL 500 PO (09:04)
[2024-03-16] MEDS: ARIMIDEX PO (09:04)
[2024-03-16] MEDS: KCL PO (09:04)
[2024-03-16] MEDS: ProAmatine PO ×3 (09:04→17:24)
[2024-03-16] MEDS: NEURONTIN PO ×2 (09:04→16:07)
[2024-03-16] MEDS: FLOMAX PO (09:04)
--- NOTE | 2024-03-16 09:57 | W.PN.HOSP.TC ---
Today's Communication/Plan
-
see AP
Assessment / Plan
Assessment / Plan
HPI: 53 woman with early dementia and [facility] of [facility] with decreased oral intake and abnormal labs. CT w/ e/o colitis and C. Diff positive.
A/P:
# Clinical sepsis 2/2 C. Diff Infection
# Acute colitis
C. Diff positive from admission
Was recc oral vancomycin 125 mg PO QID x 10 days but pt refused treatment (received ?2 days of PO vanco)
ID signed off
CT with minimal intrahepatic biliary dilatation and normal LFTs with low suspicion for obstruction so will obtain MRI as outpatient if patient agreeable.
GI signed off
# Hypokalemia
repleted
# Hyponatremia
urine lyte with very low Na suggestive of prerenal.
Also patient not taking her Synthroid which could be playing a role. TSH ok.
# Anemia
no obvious external bleeding. Suspect dilutional. iron panel with good iron stores
stable
# Hypothyroidism
Repeat TSH at 4.96
She is currently ordered IV Synthroid, but has been refusing
Will change back to PO Synthroid 175 mcg
# chest pain 7/3 suspect reflux related
refused maalox
trop neg; EKG unchanged
# Urine retention
Postvoid residuals high, s/p Tyler and now off
Urology consulted
started Flomax but again she is refusing that too
# History of early dementia/dysphagia
patient without agitation.
Continue with her home regimen. Patient refusing oral medication.
appreciate psychiatry consult. Patient deemed not competent to make medical decision.
per psych does appear depressed. started Wellbutrin however patient refused; now stopped.
# Poor oral intake.
Patient is refusing oral medication and diet.
Continue to encourage oral intake.
# US suggest RUE occlusive thrombus.
Cont Lovenox SQ 80 BID
Code: Full
DVT ppx: Lovenox 80 BID
Dispo: Need a POA/guardianship to discuss further regarding goals of care.
DW RN
total time spent 51 min
Anticipated Discharge: > 48 hours
Subjective/Interval History
-
Date of Service: March 16, 2024
Objective Data
-
Vital Signs:
Vital Signs
Temp Pulse Resp BP Pulse Ox
36.7 C 99 18 105/74 96
03/16/24 07:26 03/16/24 07:26 03/16/24 07:26 03/16/24 07:26 03/16/24 08:00
I&O
03/15/24 03/16/24 03/17/24
06:59 06:59 06:59
Intake Total 175 / 175 385 / 385
Balance 175 / 175 385 / 385
Review of Systems
-
Unable to obtain full review of systems at this time due to: Dementia
Physical Exam
-
General: Well Developed, Well Nourished, No Apparent Distress and Comfortable
Respiratory: Clear to Auscultation and Non Labored Respirations; Negative Accessory Resp Muscle Use
Cardiac: Regular Rhythm and S1/S2
GI: Soft and Nontender
Neuro: Oriented (self only)
Psych: Calm, Confused and Apparent Dementia; Negative Agitated
[2024-03-16] MEDS: DEPACON 55 MG IV (11:26)
--- NOTE | 2024-03-16 12:18 | CM ---
business analytics manager continues to follow with patient progress notes and petition for guardianship still with exercise rider, exercise rider plans to locate a guardian for patient and then submit the petition with the temporary guardian to the court for approval. Case
manager rn will proceed with placement, when appointed guardian is in place, the guardian would have to release patient information for correction placement.
Plan; To follow up with petition for guardianship.
[2024-03-16 15:19] VITALS: BP 108/74
[2024-03-16] MEDS: NEURONTIN 100 MG PO (21:18)
[2024-03-16] MEDS: LIPITOR 40 MG PO (21:19)
[2024-03-16] MEDS: MIRAPEX 0.25 MG PO (21:19)
[2024-03-16 23:02] VITALS: BP 100/65
[2024-03-17] MEDS: DEPACON 55 MG IV ×2 (00:17→11:51)
[2024-03-17 05:25] LABS: Hemoglobin 9.6 g/dL (12.0-16.0); Mean Corp Hgb Conc. 34.3 g/dL (33.0-37.0); Mean Corpuscular Hgb 28.6 pg (27.0-31.0); Mean Corpuscular Volume 83.3 fL (81.0-99.0); Mean Platelet Volume 9.9 fL (7.4-10.4); Platelet Count 202 10^3/uL (130-400); Red Blood Cell Count 3.36 10^6/uL (4.20-5.40); White Blood Cell Count 6.4 10^3/uL (4.8-10.8)
[2024-03-17] MEDS: SYNTHROID 175 MCG PO (05:39)
[2024-03-17] MEDS: LOVENOX 80 MG SC ×2 (05:39→17:10)
[2024-03-17 06:00] VITALS: BMI 31.9
[2024-03-17 06:28] LABS: Blood Urea Nitrogen < 2 mg/dl (7-17); Calcium 8.2 mg/dl (8.4-10.2); Carbon Dioxide 27 mmol/L (22-30); Chloride 97 mmol/L (98-107); Estimated Creatinine Clearance 107 ml/min; Glucose 38 mg/dl (70-99); Magnesium 1.6 mg/dl (1.6-2.3); Potassium 2.7 mmol/L (3.5-5.1); Sodium 131 mmol/L (135-145); eGFR > 60.00
[2024-03-17] MEDS: KCL 270 MEQ IV ×2 (07:22→17:10)
[2024-03-17] MEDS: DEXTROSE 50% SYRINGE 12.5 GRAMS IV (07:22)
[2024-03-17 07:32] VITALS: BP 89/60
[2024-03-17 07:49] LABS: Glucose - Point of Care 153 mg/dl (70-99)
[2024-03-17] MEDS: ARIMIDEX PO ×2 (07:59→09:08)
[2024-03-17] MEDS: FLOMAX PO ×2 (07:59→09:08)
[2024-03-17] MEDS: KCL PO ×2 (07:59→09:08)
[2024-03-17] MEDS: NEURONTIN PO ×4 (07:59→22:08)
[2024-03-17] MEDS: OSCAL CAL 500 PO ×2 (08:00→09:08)
[2024-03-17] MEDS: ProAmatine PO ×4 (08:00→17:10)
[2024-03-17] MEDS: VITAMIN D3 (cholecalciferol) PO ×2 (08:00→09:09)
--- NOTE | 2024-03-17 08:25 | W.PN.HOSP.TC ---
Today's Communication/Plan
-
see A/P
Assessment / Plan
Assessment / Plan
HPI: 53 woman with early dementia and subsequently was referred from local skilled nursing for concern of sepsis with decreased oral intake and abnormal labs. CT w/ e/o colitis and C. Diff positive.
A/P:
# Clinical sepsis 2/2 C. Diff Infection
# Acute colitis
C. Diff positive from admission
Was recc oral vancomycin 125 mg PO QID x 10 days but pt refused treatment (received ?2 days of PO vanco)
ID signed off
CT with minimal intrahepatic biliary dilatation and normal LFTs with low suspicion for obstruction so will obtain MRI as outpatient if patient agreeable.
GI signed off
# Hypokalemia
# Hypomagnesemia
replete lytes
# Hyponatremia
urine lyte with very low Na suggestive of prerenal.
Also patient not taking her Synthroid which could be playing a role. TSH ok.
gentle IVF with NSS x1 bag
# Anemia
no obvious external bleeding. Suspect dilutional. iron panel with good iron stores
stable
# Hypothyroidism
Repeat TSH at 4.96
She is currently ordered IV Synthroid, but has been refusing
Will change back to PO Synthroid 175 mcg
# chest pain 7/3 suspect reflux related
refused maalox
trop neg; EKG unchanged
# Urine retention
Postvoid residuals high, s/p Tyler and now off
Urology consulted
started Flomax but again she is refusing that too
# History of early dementia/dysphagia
patient without agitation.
Continue with her home regimen. Patient refusing oral medication.
appreciate psychiatry consult. Patient deemed not competent to make medical decision.
per psych does appear depressed. started Wellbutrin however patient refused; now stopped.
# Poor oral intake.
Patient is refusing oral medication and diet.
Continue to encourage oral intake.
# US suggest RUE occlusive thrombus.
Cont Lovenox SQ 80 BID
Code: Full
DVT ppx: Lovenox 80 BID
Dispo: Need a POA/guardianship to discuss further regarding goals of care.
DW RN
Anticipated Discharge: > 48 hours
Subjective/Interval History
-
Date of Service: March 17, 2024
Objective Data
-
Labs:
Laboratory Results
03/17/24
05:05
WBC 6.4
Hgb 9.6 L
Hct 28.0 L
Plt Count 202
Sodium 131 L
Potassium 2.7 L*
Chloride 97 L
Carbon Dioxide 27
BUN < 2 L
Creatinine 0.3 L
Glucose 38 L*
Calcium 8.2 L
Vital Signs:
Vital Signs
Temp Pulse Resp BP Pulse Ox
37.2 C 101 20 89/60 98
03/17/24 07:32 03/17/24 07:32 03/17/24 07:32 03/17/24 07:32 03/17/24 07:32
I&O
03/16/24 03/17/24 03/18/24
06:59 06:59 06:59
Intake Total 385 / 385 175 / 175
Balance 385 / 385 175 / 175
Review of Systems
-
Unable to obtain full review of systems at this time due to: Dementia
Physical Exam
-
General: Well Developed, Well Nourished, No Apparent Distress and Comfortable
Respiratory: Clear to Auscultation and Non Labored Respirations; Negative Accessory Resp Muscle Use
Cardiac: Regular Rhythm and S1/S2
GI: Soft and Nontender
Neuro: Awake and Oriented (self only)
Psych: Calm, Confused and Apparent Dementia; Negative Agitated
Data Reviewed
-
Labs: Labs Reviewed by me
[2024-03-17 11:55] LABS: Glucose - Point of Care 79 mg/dl (70-99)
--- NOTE | 2024-03-17 11:58 | W.PN.UPDATE ---
Update Note
Progress Note Update
Patient seen, chart reviewed, discussed with staff. Patient refused to come out from blanket. Would not engage with me.
Continue to await guardianship.
Impression/Recommendations: Schizophrenia, by history - refusing medications, taking only IV Depakene; Dementia, appears to lack capacity and awaiting guardianship
--- NOTE | 2024-03-17 11:59 | CM ---
merchandising execution manager received a call from Helio Arcelia [phone] a [address] date and time, set up for Guardianship Hearing, Hearing will take place on March 19 at 2pm, patient will be seen by guardianship juice packaging machines setter and her guardian,
Chilango Carlson prior to court hearing. After the judger has secured and guardian for patient director of casework department can proceed with skilled placement.
Plan; Guardianship hearing to take place on March 19 at 2pm.
[2024-03-17] MEDS: MAGNESIUM SULFATE 100 IV (13:05)
[2024-03-17 15:44] VITALS: BP 93/69
[2024-03-17 16:20] LABS: Glucose - Point of Care 65 mg/dl (70-99)
[2024-03-17 17:03] LABS: Glucose - Point of Care 85 mg/dl (70-99)
[2024-03-17 21:50] LABS: Glucose - Point of Care 70 mg/dl (70-99)
[2024-03-17] MEDS: MIRAPEX PO (22:08)
[2024-03-17] MEDS: NSS with KCL 40 MEQ 1000 IV (22:08)
[2024-03-17 22:45] VITALS: BP 109/79
[2024-03-18] MEDS: DEPACON 55 MG IV ×2 (00:40→12:11)
[2024-03-18] MEDS: LOVENOX 80 MG SC ×2 (05:49→17:17)
[2024-03-18] MEDS: SYNTHROID 175 MCG PO (05:49)
[2024-03-18 06:00] VITALS: BMI 32.1
[2024-03-18 06:20] LABS: Hematocrit 27.5 % (37.0-47.0); Hemoglobin 9.4 g/dL (12.0-16.0); Mean Corp Hgb Conc. 34.2 g/dL (33.0-37.0); Mean Corpuscular Hgb 27.9 pg (27.0-31.0); Mean Corpuscular Volume 81.6 fL (81.0-99.0); Mean Platelet Volume 9.8 fL (7.4-10.4); Platelet Count 214 10^3/uL (130-400); Red Blood Cell Count 3.37 10^6/uL (4.20-5.40); Red Cell Dist. Width 19.9 % (11.5-14.5)
[2024-03-18 06:50] LABS: Blood Urea Nitrogen < 2 mg/dl (7-17); Calcium 7.5 mg/dl (8.4-10.2); Carbon Dioxide 30 mmol/L (22-30); Chloride 99 mmol/L (98-107); Estimated Creatinine Clearance 108 ml/min; Glucose 77 mg/dl (70-99); Magnesium 2.2 mg/dl (1.6-2.3); Potassium 3.8 mmol/L (3.5-5.1); Sodium 131 mmol/L (135-145); eGFR > 60.00
[2024-03-18 07:29] VITALS: BP 114/74
[2024-03-18 08:01] LABS: Glucose - Point of Care 61 mg/dl (70-99)
[2024-03-18] MEDS: TIGAN 200 MG IM (08:22)
[2024-03-18] MEDS: DEXTROSE 50% SYRINGE 12.5 GRAMS IV (08:23)
[2024-03-18] MEDS: NEURONTIN 100 MG PO ×3 (08:31→20:40)
[2024-03-18] MEDS: FLOMAX 0.4 MG PO (08:32)
[2024-03-18] MEDS: ARIMIDEX 1 MG PO (08:32)
[2024-03-18] MEDS: ProAmatine 5 MG PO ×3 (08:32→17:15)
[2024-03-18] MEDS: KCL PO (08:43)
[2024-03-18] MEDS: VITAMIN D3 (cholecalciferol) PO (08:43)
[2024-03-18] MEDS: OSCAL CAL 500 PO (08:43)
[2024-03-18 08:50] LABS: Glucose - Point of Care 117 mg/dl (70-99)
[2024-03-18 11:47] LABS: Glucose - Point of Care 80 mg/dl (70-99)
--- NOTE | 2024-03-18 11:56 | W.PN.HOSP.TC ---
Today's Communication/Plan
-
see A/P
Assessment / Plan
Assessment / Plan
HPI: 53 woman with early dementia and subsequently was referred from local [facility]ial for concern of sepsis with decreased oral intake and abnormal labs. CT w/ e/o colitis and C. Diff positive.
A/P:
# Clinical sepsis 2/2 C. Diff Infection
# Acute colitis
C. Diff positive from admission
Was recc oral vancomycin 125 mg PO QID x 10 days but pt refused treatment (received ?2 days of PO vanco)
ID signed off
CT with minimal intrahepatic biliary dilatation and normal LFTs with low suspicion for obstruction so will obtain MRI as outpatient if patient agreeable.
GI signed off
# Hypokalemia
# Hypomagnesemia
repleted lytes
# Hyponatremia
urine lyte with very low Na suggestive of prerenal.
Also patient not taking her Synthroid which could be playing a role. TSH ok.
s/p gentle IVF
sodium level 131 today
# Anemia
no obvious external bleeding. Suspect dilutional. iron panel with good iron stores
stable
# Hypothyroidism
Repeat TSH at 4.96
She is currently ordered IV Synthroid, but has been refusing
Will change back to PO Synthroid 175 mcg
# chest pain 7/3 suspect reflux related
refused maalox
trop neg; EKG unchanged
# Urine retention
Postvoid residuals high, s/p Tyler and now off
Urology consulted
started Flomax but again she is refusing that too
# History of early dementia/dysphagia
patient without agitation.
Continue with her home regimen. Patient refusing oral medication.
appreciate psychiatry consult. Patient deemed not competent to make medical decision.
per psych does appear depressed. started Wellbutrin however patient refused; now stopped.
# Poor oral intake with hypoglycemia
Patient refuses oral medication and diet at times.
Continue to encourage oral intake.
D50 pushes if noting hypoglycemia and refusing to eat
# US suggest RUE occlusive thrombus.
Cont Lovenox SQ 80 BID
Code: Full
DVT ppx: Lovenox 80 BID
Dispo: Need a POA/guardianship to discuss further regarding goals of care.
DW RN
Anticipated Discharge: 24 - 48 hours
Subjective/Interval History
-
Date of Service: March 18, 2024
Objective Data
-
Labs:
Laboratory Results
03/18/24
06:04
WBC 6.0
Hgb 9.4 L
Hct 27.5 L
Plt Count 214
Sodium 131 L
Potassium 3.8 D
Chloride 99
Carbon Dioxide 30
BUN < 2 L
Creatinine 0.3 L
Glucose 77
Calcium 7.5 L
Vital Signs:
Vital Signs
Temp Pulse Resp BP Pulse Ox
37.1 C 94 18 114/74 95
03/18/24 07:29 03/18/24 07:29 03/18/24 07:29 03/18/24 07:29 03/18/24 08:15
I&O
03/17/24 03/18/24 03/19/24
06:59 06:59 06:59
Intake Total 175 / 175 1874
Balance 175 / 175 1874
Review of Systems
-
Unable to obtain full review of systems at this time due to: Dementia
Physical Exam
-
General: Well Developed, Well Nourished, No Apparent Distress and Comfortable
Respiratory: Clear to Auscultation and Non Labored Respirations; Negative Accessory Resp Muscle Use
Cardiac: Regular Rhythm and S1/S2
GI: Soft and Nontender
Neuro: Awake and Oriented (self only)
Psych: Calm, Confused and Apparent Dementia; Negative Agitated
Data Reviewed
-
Labs: Labs Reviewed by me
--- NOTE | 2024-03-18 12:11 | W.PN.UPDATE ---
Update Note
Progress Note Update
patient seen chart reviewed. discussed w nursing. ms pitt is much the same. still not eating or drinking with any regularity. generally not taking any of her medications although her nurse today was able to get her to take some of them this am.
she is more talkative certainly than she had been when she first came. today she did talk to me about growing up in [facility] and attending [employer] for one year. also told me she has three sibs and she does talk to her sister
'sometimes'. i asked her why she did not eat anything and she said she just was not hungry. interestingly she does not look emaciated or lethargic. considered getting a depakote level...her level is in the 30's but i am not sure what would change
if it was in the fifties which would be theoretically therapeutic. she is not agitated. inc in depakote not likely to get her to eat and when she leaves here she will probably not be taking that either as she cannot receive iv forever in fact i
wonder if we should do a trial dc howevere she does seem fairly coopeartive and pleasant at this point. awaiting guardianship will discuss w cm.
[2024-03-18 15:54] VITALS: BP 102/66
[2024-03-18 16:17] LABS: Glucose - Point of Care 80 mg/dl (70-99)
[2024-03-18] MEDS: MIRAPEX 0.25 MG PO (20:40)
[2024-03-18 21:08] LABS: Glucose - Point of Care 85 mg/dl (70-99)
[2024-03-18 23:00] VITALS: BP 99/59
[2024-03-19] MEDS: DEPACON 55 MG IV ×3 (00:14→23:29)
[2024-03-19 03:10] LABS: Glucose - Point of Care 89 mg/dl (70-99)
[2024-03-19 05:46] VITALS: BMI 32.5
[2024-03-19] MEDS: SYNTHROID 175 MCG PO (06:02)
[2024-03-19] MEDS: LOVENOX 80 MG SC ×2 (06:02→16:54)
[2024-03-19 07:30] VITALS: BP 107/65
[2024-03-19 07:42] LABS: Hematocrit 27.5 % (37.0-47.0); Hemoglobin 9.5 g/dL (12.0-16.0); Mean Corp Hgb Conc. 34.5 g/dL (33.0-37.0); Mean Corpuscular Hgb 28.7 pg (27.0-31.0); Mean Corpuscular Volume 83.1 fL (81.0-99.0); Mean Platelet Volume 10.5 fL (7.4-10.4); Platelet Count 191 10^3/uL (130-400); Red Blood Cell Count 3.31 10^6/uL (4.20-5.40); Red Cell Dist. Width 20.3 % (11.5-14.5); White Blood Cell Count 6.5 10^3/uL (4.8-10.8)
[2024-03-19] MEDS: ARIMIDEX 1 MG PO (08:07)
[2024-03-19] MEDS: KCL PO (08:07)
[2024-03-19] MEDS: NEURONTIN 100 MG PO (08:07)
[2024-03-19] MEDS: FLOMAX 0.4 MG PO (08:07)
[2024-03-19 08:08] LABS: Blood Urea Nitrogen < 2 mg/dl (7-17); Calcium 7.7 mg/dl (8.4-10.2); Carbon Dioxide 29 mmol/L (22-30); Chloride 99 mmol/L (98-107); Estimated Creatinine Clearance 108 ml/min; Glucose 62 mg/dl (70-99); Magnesium 2.1 mg/dl (1.6-2.3); Potassium 3.4 mmol/L (3.5-5.1); Sodium 130 mmol/L (135-145); eGFR > 60.00
[2024-03-19] MEDS: OSCAL CAL 500 PO (08:08)
[2024-03-19] MEDS: VITAMIN D3 (cholecalciferol) 25 MCG PO (08:08)
[2024-03-19] MEDS: ProAmatine 5 MG PO ×2 (08:08→12:46)
[2024-03-19 08:12] LABS: Glucose - Point of Care 81 mg/dl (70-99)
--- NOTE | 2024-03-19 08:44 | W.PN.HOSP.TC ---
Today's Communication/Plan
-
see A/P
Assessment / Plan
Assessment / Plan
HPI: 53 woman with early dementia and subsequently [facility] local [facility] for concern of [facility] with decreased oral intake and abnormal labs. CT w/ e/o colitis and C. Diff positive.
A/P:
# Clinical sepsis 2/2 C. Diff Infection
# Acute colitis
C. Diff positive from admission
Was recc oral vancomycin 125 mg PO QID x 10 days but pt refused treatment (received ?2 days of PO vanco)
ID signed off
CT with minimal intrahepatic biliary dilatation and normal LFTs with low suspicion for obstruction so will obtain MRI as outpatient if patient agreeable.
GI signed off
# Hypokalemia
# Hypomagnesemia
repleted lytes
# Hyponatremia
urine lyte with very low Na suggestive of prerenal.
Also patient not taking her Synthroid which could be playing a role. TSH ok.
s/p gentle IVF
sodium level 130 today
# Anemia
no obvious external bleeding. Suspect dilutional. iron panel with good iron stores
stable
# Hypothyroidism
Repeat TSH at 4.96
PO Synthroid 175 mcg
# chest pain 7/3 suspect reflux related
refused maalox
trop neg; EKG unchanged
# Urine retention
Postvoid residuals high, s/p Tyler and now off
Urology consulted
started Flomax but again she is refusing that too
# History of early dementia/dysphagia
patient without agitation.
Continue with her home regimen. Patient refusing oral medication.
appreciate psychiatry consult. Patient deemed not competent to make medical decision.
per psych does appear depressed. started Wellbutrin however patient refused; now stopped.
# Poor oral intake with hypoglycemia
Patient refuses oral medication and diet at times.
Continue to encourage oral intake.
D50 pushes if hypoglycemic and refusing to eat
# US suggest RUE occlusive thrombus.
Cont Lovenox SQ 80 BID
Check repeat RUE US, if thrombus is ruled out, could stop therapeutic Lovenox
Code: Full
DVT ppx: Lovenox 80 BID
Dispo: Need a POA/guardianship to discuss further regarding goals of care.
DW CM, who will be attending court for guardianship today
Anticipated Discharge: 24 - 48 hours
Subjective/Interval History
-
Date of Service: March 19, 2024
Objective Data
-
Labs:
Laboratory Results
03/19/24
06:19
WBC 6.5
Hgb 9.5 L
Hct 27.5 L
Plt Count 191
Sodium 130 L
Potassium 3.4 L
Chloride 99
Carbon Dioxide 29
BUN < 2 L
Creatinine 0.3 L
Glucose 62 L
Calcium 7.7 L
Vital Signs:
Vital Signs
Temp Pulse Resp BP Pulse Ox
36.8 C 98 18 107/65 99
03/19/24 07:30 03/19/24 07:30 03/19/24 07:30 03/19/24 07:30 03/19/24 07:30
I&O
03/18/24 03/19/24 03/20/24
06:59 06:59 06:59
Intake Total 1874 1370 / 1370
Balance 1874 1370 / 1370
Review of Systems
-
Unable to obtain full review of systems at this time due to: Dementia
Physical Exam
-
General: Well Developed, Well Nourished, No Apparent Distress and Comfortable
Respiratory: Clear to Auscultation and Non Labored Respirations; Negative Accessory Resp Muscle Use
Cardiac: Regular Rhythm and S1/S2
GI: Soft and Nontender
Neuro: Oriented (self only)
Psych: Calm, Confused and Apparent Dementia; Negative Agitated
Data Reviewed
-
Labs: Labs Reviewed by me
[2024-03-19] MEDS: KCL 270 MEQ IV (09:02)
--- NOTE | 2024-03-19 12:04 | W.PN.UPDATE ---
Update Note
Progress Note Update
patient seen chart reviewed. no real change. patient did ask me to get her ice water and a sugar packet. told me she wanted to eat her cereal with milk and sugar. when i got all ready for her she said she would eat 'later'. she did take most of her
meds today although not vitamins. hearing is today for guardianship she is generally pleasant at this point taking more of her meds although still does not eat very much although as mentioned she is not listless or lethargic. will continue to
follow
--- NOTE | 2024-03-19 12:06 | CM ---
Addendum entered by Kendra Baig 03/19/24 16:48:
manager requirements spoke with Christie Lipscomb at [facility] [phone] . Patient will need PT/OT evaluations for Auth.
Addendum entered by Kendra Baig 03/19/24 15:57:
Guardianship hearing took place today at [facility], and copy of, ' Final Decree' placed on chart. Court has appointed Chilango Aldo as guardian cell [phone], per emergency guardian he has selected [facility] for skilled placement
for patient, community case manager sent referral to [facility] today and will wait on a determination.
Original Note:
manager requirements reviewed patient's chart and there is a court hearing today for guardianship, at 2pm, and after that community case manager will proceed with skilled placement, multiple referrals sent out however patient has only been accepted at [facility].
Plan Skilled placement after guardianship is in place.
[2024-03-19 12:15] LABS: Glucose - Point of Care 60 mg/dl (70-99)
[2024-03-19 12:35] LABS: Glucose - Point of Care 74 mg/dl (70-99)
[2024-03-19 14:43] LABS: Glucose - Point of Care 72 mg/dl (70-99)
[2024-03-19] MEDS: NEURONTIN PO ×3 (15:34→21:44)
[2024-03-19 15:45] VITALS: BP 124/80
[2024-03-19 16:49] LABS: Glucose - Point of Care 84 mg/dl (70-99)
[2024-03-19] MEDS: TIGAN 200 MG IM (16:54)
[2024-03-19] MEDS: ProAmatine PO (17:07)
--- NOTE | 2024-03-19 17:10 | PTCARENOTE ---
Pt was nauseated and vomited up her Neurontin pill this afternoon. Tigan 200mg IM given.
[2024-03-19 21:04] LABS: Glucose - Point of Care 82 mg/dl (70-99)
[2024-03-19] MEDS: MIRAPEX PO (21:44)
[2024-03-19 23:00] VITALS: BP 115/70
[2024-03-19] MEDS: MELATONIN 5 MG PO (23:39)
[2024-03-20 03:13] LABS: Glucose - Point of Care 71 mg/dl (70-99)
[2024-03-20 05:02] LABS: Blood Urea Nitrogen < 2 mg/dl (7-17); Calcium 7.5 mg/dl (8.4-10.2); Carbon Dioxide 29 mmol/L (22-30); Chloride 98 mmol/L (98-107); Estimated Creatinine Clearance 108 ml/min; Glucose 64 mg/dl (70-99); Magnesium 1.8 mg/dl (1.6-2.3); Potassium 3.9 mmol/L (3.5-5.1); Sodium 128 mmol/L (135-145); eGFR > 60.00
[2024-03-20] MEDS: SYNTHROID 175 MCG PO (05:33)
[2024-03-20] MEDS: LOVENOX 80 MG SC (05:33)
[2024-03-20 05:56] VITALS: BMI 32.5
[2024-03-20 07:00] VITALS: BP 97/62
[2024-03-20 07:46] LABS: Glucose - Point of Care 57 mg/dl (70-99)
[2024-03-20 08:14] LABS: Glucose - Point of Care 66 mg/dl (70-99)
[2024-03-20 08:34] LABS: Glucose - Point of Care 65 mg/dl (70-99)
[2024-03-20] MEDS: ARIMIDEX PO (08:58)
[2024-03-20] MEDS: KCL PO (08:59)
[2024-03-20] MEDS: FLOMAX PO (08:59)
[2024-03-20] MEDS: OSCAL CAL 500 PO (09:00)
[2024-03-20] MEDS: VITAMIN D3 (cholecalciferol) PO (09:00)
[2024-03-20] MEDS: NEURONTIN PO ×2 (09:00→15:05)
[2024-03-20] MEDS: ProAmatine PO ×2 (09:00→12:18)
[2024-03-20 09:11] LABS: Glucose - Point of Care 86 mg/dl (70-99)
--- NOTE | 2024-03-20 10:37 | W.PN.HOSP.TC ---
Addendum entered and electronically signed by Tami Granado MD 03/21/24 13:03:
total DC time 40 min
Original Note:
Today's Communication/Plan
-
see A/P
Assessment / Plan
Assessment / Plan
HPI: 53 woman with early dementia and subsequently was [facility] from local [facility] for concern of sepsis with decreased oral intake and abnormal labs. CT w/ e/o colitis and C. Diff positive.
A/P:
# Clinical sepsis 2/2 C. Diff Infection
# Acute colitis
C. Diff positive from admission
Was recc oral vancomycin 125 mg PO QID x 10 days but pt refused treatment (received ?2 days of PO vanco)
ID signed off
CT with minimal intrahepatic biliary dilatation and normal LFTs with low suspicion for obstruction so will obtain MRI as outpatient if patient agreeable.
GI signed off
# Hypokalemia
# Hypomagnesemia
repleted lytes
# Hyponatremia
urine lyte with very low Na suggestive of prerenal.
Also patient not taking her Synthroid which could be playing a role. TSH ok.
s/p gentle IVF
sodium level 130 today
# Anemia
no obvious external bleeding. Suspect dilutional. iron panel with good iron stores
stable
# Hypothyroidism
Repeat TSH at 4.96
PO Synthroid 175 mcg
# chest pain 7/3 suspect reflux related
refused maalox
trop neg; EKG unchanged
# Urine retention
Postvoid residuals high, s/p Tyler and now off
Urology consulted
started Flomax but again she is refusing that too
# History of early dementia/dysphagia
patient without agitation.
Continue with her home regimen. Patient refusing oral medication.
appreciate psychiatry consult. Patient deemed not competent to make medical decision.
per psych does appear depressed. started Wellbutrin however patient refused; now stopped.
# Poor oral intake with hypoglycemia
Patient refuses oral medication and diet at times.
Continue to encourage oral intake.
D50 pushes if hypoglycemic and refusing to eat
# Ruled out RUE DVT
Initial US 03/03 suggestive RUE occlusive thrombus. However, repeat RUE US 03/19 neg for DVT, stop further therapeutic Lovenox
Code: Full
DVT ppx: Lovenox SQ
Dispo: Need a POA/guardianship to discuss further regarding goals of care. PT OT eval replaced
Anticipated Discharge: Within 24 hours
Subjective/Interval History
-
Date of Service: March 20, 2024
Objective Data
-
Labs:
Laboratory Results
03/20/24
04:09
Sodium 128 L
Potassium 3.9
Chloride 98
Carbon Dioxide 29
BUN < 2 L
Creatinine 0.3 L
Glucose 64 L
Calcium 7.5 L
Vital Signs:
Vital Signs
Temp Pulse Resp BP Pulse Ox
36.4 C 100 16 97/62 99
03/20/24 07:00 03/20/24 07:00 03/20/24 07:00 03/20/24 07:00 03/20/24 07:00
I&O
03/19/24 03/20/24 03/21/24
06:59 06:59 06:59
Intake Total 1370 / 1370 990 / 990
Balance 1370 / 1370 990 / 990
Review of Systems
-
Unable to obtain full review of systems at this time due to: Dementia
Physical Exam
-
General: Well Developed, Well Nourished, No Apparent Distress and Comfortable
Respiratory: Clear to Auscultation and Non Labored Respirations; Negative Accessory Resp Muscle Use
Cardiac: Regular Rhythm and S1/S2
GI: Soft and Nontender
Neuro: Oriented (self only)
Psych: Calm, Confused and Apparent Dementia; Negative Agitated
Data Reviewed
-
Labs: Labs Reviewed by me
[2024-03-20 11:49] LABS: Glucose - Point of Care 84 mg/dl (70-99)
[2024-03-20] MEDS: DEPACON 55 MG IV (12:18)
--- NOTE | 2024-03-20 12:19 | CM ---
Addendum entered by Kendra Baig 03/20/24 15:01:
Patient's guardian has approved transfer to [facility] today and he will follow patient after discharge.
Addendum entered by Kendra Baig 03/20/24 14:23:
Patient is for transfer to [facility] today by ambulance.
[facility]
Report [phone]

Original Note:
pricing manager reviewed patient's chart and spoke with Christie in admissions at [facility], referral sent without PT/OT notes, will need to to send PT/OT evaluations for patient to qualify for skilled placement. Plan to follow up with Christie Lipscomb [phone]
[phone] at [facility] to see if they will accept patient.
Plan; pricing manager will fax PT/OT notes when patient has been seen by PT/OT.
[2024-03-20 14:31] VITALS: BP 125/77; PULSE 108; O2SAT 100
[2024-03-20 14:37] VITALS: BP 125/77; PULSE 108; O2SAT 100
--- NOTE | 2024-03-20 14:44 | W.DCSUMMARY ---
Discharge Summary
Discharge Data
Date of Admission: 02/22/24
Date of Discharge: 03/20/24
-
Pending Results: No
Hospital Course
Principal Diagnosis:
Clinical sepsis on admission due to C. Diff Infection with acute colitis
Hypokalemia and hypomagnesemia.
Hyponatremia, possibly prerenal in etiology.
Poor oral intake with hypoglycemia due to intermittently refusing to eat
Resolved urinary retention
Ruled out RUE DVT
Chronic Diagnoses:�
Hypothyroidism
Severe early dementia without agitation. She is not competent to make medical decision.
Consultations:�
Psychiatry
Gastroenterology
Infectious disease
Procedures:�
None
Clinical course:�
This is a 53 woman with early dementia who was subsequently sent to a local retirement, presented with decreased oral intake and possible diarrhea.
Problem 1:
Clinical sepsis on admission due to C. Diff Infection with acute colitis.
Her C. Diff antigen was positive on admission.
She was prescribed oral vancomycin 125 mg PO QID x 10 days but she refused treatment (received ?2 days of PO vanco).
Given she continued to refuse treatment, infectious disease and GI signed off.
Problem 2:
Hypokalemia and hypomagnesemia.
Her lytes were repleted this admission.
Problem 3:
Hyponatremia. This was likely due to poor oral intake (solute intake) with hypoglycemia intermittently due to refusal to eat.
Her last sodium level was at 128.
Problem 4:
Ruled out RUE DVT.
Her initial US on 03/03 was suggestive of RUE occlusive thrombus. However, repeat RUE US on 03/19 was neg for DVT, hence therapeutic Lovenox was stopped.
Problem 5:
Resolved urinary retention.
At one point, Tyler was placed which was subsequently discontinued.
She was started with Flomax but refused to take that, hence it was also discontinued.
As for the rest of her medical problems, they were stable during her hospital stay.
Discharge Plan
-
Patient Disposition: Jail/SNF
Discharge Diagnosis/Procedures: Sepsis due to C. Diff Infection; Acute colitis; hypothyroidism; hypokalemia and Hypomagnesemia; Hyponatremia; Hypothyroidism; severe dementia only orientated to self; Poor oral intake with intermittent hypoglycemia;
refusal of medications
Condition: Fair
Diet: As tolerated
Activity: As tolerated
Driving Restrictions: No driving
Referrals:
Cliff Austin DO [Family Provider] - in less than 1 week
Fanny Randle DO [Active] - (GI follow up with Dr. Randle or [facility] 3-4 week for diarrhea and consider MRI for follow up with ductal dilation if patient willing to proceed )
Prescriptions:
New
levothyroxine 175 mcg Tablet
175 mcg PO DAILY@0600 Qty: 30 0RF
Continued
gabapentin 100 mg Tablet
100 mg PO TID
Discontinued
atorvastatin [Lipitor] 40 mg Tablet
40 mg PO HS
anastrozole 1 mg Tablet
1 mg PO DAILY
sennosides [senna] 8.6 mg Tablet
8.6 mg PO BID PRN (Reason: constipation)
acetaminophen 325 mg Tablet
650 mg PO Q6H PRN (Reason: elevated temp/mild pain)
cefpodoxime 200 mg Tablet
200 mg PO BID
Rx Instructions:
stop 02/24/24
ondansetron HCl [Zofran] 4 mg Tablet
4 mg PO Q6H PRN (Reason: nausea)
sertraline 100 mg Tablet
100 mg PO DAILY
clonazepam [Klonopin] 1 mg Tablet
1 mg PO Q8 PRN (Reason: anxiety)
Oyster Goyo 500 mg Tablet
1,500 mg PO DAILY
divalproex 500 mg Tablet,Delayed Release (Dr/Ec)
1,000 mg PO HS
pantoprazole [Protonix] 20 mg Tablet,Delayed Release (Dr/Ec)
20 mg PO DAILY
propranolol 10 mg Tablet
10 mg PO BID
magnesium oxide [MagOx] 400 mg (241.3 mg magnesium) Tablet
400 mg PO BID
magnesium hydroxide [Milk of Magnesia] 400 mg/5 mL Suspension
30 ml PO DAILY PRN (Reason: constipation)
bisacodyl 10 mg Suppository
10 mg MN DAILY PRN (Reason: constipation)
haloperidol 10 mg Tablet
10 mg PO DAILY
Fleet Enema 19-7 gram/118 mL Enema
118 ml MN ONCE PRN (Reason: constipation)
benztropine 2 mg Tablet
2 mg PO BID
docusate sodium [Colace] 100 mg Capsule
100 mg PO DAILY
pramipexole 0.25 mg Tablet
0.25 mg PO HS
Metamucil Smooth Texture Packet
1 packet PO DAILY
potassium 20 mg Tablet,Chewable
20 mg PO DAILY
aripiprazole [Abilify] 10 mg Tablet
10 mg PO DAILY
clozapine [Clozaril] 200 mg Tablet
200 mg PO DAILY
clozapine [Clozaril] 200 mg Tablet
400 mg PO HS
cholecalciferol (vitamin D3) 25 mcg (1,000 unit) Tablet
25 mcg PO DAILY
ferrous gluconate 325 mg (36 mg iron) Tablet
324 mg PO TID
Biofreeze (menthol) 4 % Gel
1 applic TOPICAL TID PRN (Reason: pain)
naloxone [Narcan] 4 mg/actuation [place],Non-Aerosol
4 mg INTRANASAL Q2M PRN (Reason: overdose)
levothyroxine 200 mcg Capsule
225 mcg PO DAILY
Discharge Orders:
Discharge Patient (As Directed); Ordered 03/20/24
Ordered By: Tami Granado
Discharge Date and Time
Discharge Date/Time: 03/20/24 16:59
Print Language: VINCENTIAN
[2024-03-20 15:00] VITALS: BP 115/70
== END 2024-03-20 16:59 | DRG 872 ==
LOC: 4 WEST ACU 23:47
PROVIDERS: Internal Medicine; Nurse Practitioner Adult Health; Student in an Organized Health Care Education/Training Program; ADMITTING PHYSICIAN Internal Medicine; ATTENDING PHYSICIAN Internal Medicine; CONSULT PHYSICIAN Psychiatry & Neurology Psychiatry; CONSULT PHYSICIAN Specialist; CONSULT PHYSICIAN Student in an Organized Health Care Education/Training Program; EMERGENCY PHYSICIAN Emergency Medicine; FAMILY PHYSICIAN Internal Medicine; OTHER PHYSICIAN Internal Medicine
DX: A41.9 Sepsis, unspecified organism (principal); N39.0 Urinary tract infection, site not specified; E87.1 Hypo-osmolality and hyponatremia; A04.72 Enterocolitis due to Clostridium difficile, not specified as recurrent; F20.5 Residual schizophrenia; D64.9 Anemia, unspecified; K83.8 Other specified diseases of biliary tract; F03.90 Unspecified dementia, unspecified severity, without behavioral disturbance, psychotic disturbance, mood disturbance, and anxiety; E78.00 Pure hypercholesterolemia, unspecified; I10 Essential (primary) hypertension; K21.9 Gastro-esophageal reflux disease without esophagitis; F41.9 Anxiety disorder, unspecified; E03.9 Hypothyroidism, unspecified; R33.8 Other retention of urine; E87.6 Hypokalemia; E83.42 Hypomagnesemia; E86.1 Hypovolemia; E16.2 Hypoglycemia, unspecified; Z11.52 Encounter for screening for COVID-19; Z79.899 Other long term (current) drug therapy; Z85.3 Personal history of malignant neoplasm of breast
CPT/HCPCS: 51701; 71045; 74018; 74177; 80048; 80053; 80159; 80164; 81003; 81015; 82040; 82247; 82330; 82533; 82728; 82962; 83540; 83550; 83605; 83735; 83930; 83935; 83993; 84075; 84100; 84132; 84300; 84443; 84450; 84460; 84484; 85025; 85027; 86140; 87040; 87045; 87046; 87070; 87077; 87086; 87186; 87205; 87324; 87328; 87329; 87427; 87449; 87811; 89055; 93005; 93306; 93971; 96361; 96374; 97163; 97164; 97167; 97530; 97535; 99291; J1610; Q9967